=== PATIENT | male | born 1935 | race Caucasian/White ===

== ENCOUNTER → 2016-06-22 | Outpatient (CLI) | payer MEDICARE ==
[2016-06-22 08:47] LABS: Anisocytosis Slight; Basophils # (A) 0.1 k/uL (0-0.2); Basophils % (A) 1 %; CH 29.7; CHCM 31.1; Eosinophils # (A) 0.2 k/uL (0-0.7); Eosinophils % (A) 4 %; HDW 2.67; HGB 12.8 gm/dL (13.0-17.5); Hypochromasia Slight; Luc # (Auto) 0.21; Luc % (Auto) 3; Lymphocytes # (A) 1.4 k/uL (1.0-4.8); Lymphocytes % (A) 21 %; MCH 29.2 pg (25.0-35.0); MCHC 30.5 g/dL (31.0-37.0); MCV 95.8 fL (80.0-100.0); Mean Platelet Volume 7.3; Monocytes # (A) 0.4 k/uL (0-1.0); Monocytes % (A) 7 %; Neutrophils # (A) 4.4 k/uL (1.3-7.7); Neutrophils % (A) 65 %; RBC 4.38 m/uL (4.30-5.90); RDW 16.2 % (11.5-15.5); WBC 6.7 k/uL (3.8-10.6); WBC (Perox) 7.02
[2016-06-22 08:56] LABS: ALT 39 U/L (21-72); AST 23 U/L (17-59); Alkaline Phosphatase 95 U/L (38-126); Anion Gap 11 mmol/L; Blood Urea Nitrogen 29 mg/dL (9-20); Calcium 8.9 mg/dL (8.4-10.2); Carbon Dioxide 28 mmol/L (22-30); Chloride 106 mmol/L (98-107); Glucose 92 mg/dL (74-99); Non-African American GFR(MDRD) 54 (>60 ml/min/1.73 sqM); Sodium 145 mmol/L (137-145); Total Bilirubin 0.7 mg/dL (0.2-1.3); Total Protein 7.2 g/dL (6.3-8.2)
== END | disposition home or self-care (01) ==
LOC: LABWHC1 07:49
PROVIDERS: ATTEND Family Medicine
DX: G31.84 Mild cognitive impairment of uncertain or unknown etiology (principal); F41.1 Generalized anxiety disorder; R63.4 Abnormal weight loss
CPT/HCPCS: 36415; 80053; 84439; 84443; 85025

== ENCOUNTER → 2016-06-29 | Outpatient (CLI) | payer MEDICARE | END | disposition home or self-care (01) | LOC: LABWHC1 10:31 | PROVIDERS: ATTEND Family Medicine | DX: G31.84 Mild cognitive impairment of uncertain or unknown etiology (principal); R94.6 Abnormal results of thyroid function studies; Z51.81 Encounter for therapeutic drug level monitoring; Z79.01 Long term (current) use of anticoagulants | CPT/HCPCS: 36415; 84439; 84443; 84481; 86376; 86800 ==

== ENCOUNTER 2016-07-13 18:49 | Observation (INO) | payer MEDICARE ==
--- NOTE | 2016-07-13 19:20 | ED ---
Chest Pain HPI - General Chief Complaint: Chest Pain Stated Complaint: Chest Pain Time Seen by Provider: 07/13/16 19:17 Source: patient, RN notes reviewed Mode of arrival: wheelchair Limitations: no limitations - History of Present Illness Initial Comments: 's patient is an 81-year-old man who presents to be evaluated for chest pain. The patient states that he had been sitting and watching television this evening , when he had what he is describing as about 5 successive thumps in the left anterior chest. He then started shaking uncontrollably. The patient also was having some shortness of breath associated. They did phone EMS and were transported here. The patient states that the thumping/pain had resolved. He does continue to feel somewhat shaky. MD Complaint: chest pain Onset/Timin -: hour(s) Onset: during rest Pain Location: left chest Pain Radiation: none Severity: moderate Quality: other (Thumping) Consistency: now resolved Improves With: nothing Worsens With: nothing Anginal Symptoms: dyspnea Treatments Prior to Arrival: aspirin, oxygen - Related Data Home Medications Medication Instructions Recorded Confirmed Aspirin EC [Ecotrin Low Dose] 81 mg PO DAILY 01/27/14 07/13/16 Atorvastatin [Lipitor] 20 mg PO HS 01/27/14 07/13/16 Folic Acid 1 mg PO DAILY 01/27/14 07/13/16 Furosemide [Lasix] 20 mg PO DAILY 01/27/14 07/13/16 Warfarin [Coumadin] 2.5 mg PO SUMOTUTHSA 01/27/14 07/13/16 ALPRAZolam [Xanax] 0.5 mg PO QID PRN 08/18/14 07/13/16 Amiodarone [Cordarone] 100 mg PO DAILY 07/13/16 07/13/16 Ferocon Cap 1 cap PO DAILY 07/13/16 07/13/16 Warfarin [Coumadin] 5 mg PO WEFR 07/13/16 07/13/16 Allergies Allergy/AdvReac Type Severity Reaction Status Date / Time No Known Allergies Allergy Verified 07/13/16 19:34 Review of Systems ROS Statement: Those systems with pertinent positive or pertinent negative responses have been documented in the HPI. ROS Other: All systems not noted in ROS Statement are negative. Constitutional: Reports: chills. Denies: fever, weakness Respiratory: Reports: dyspnea. Denies: cough, wheezes, hemoptysis Cardiovascular: Reports: as per HPI, chest pain, palpitations. Denies: orthopnea, edema, syncope Gastrointestinal: Denies: abdominal pain, nausea, vomiting Genitourinary: Denies: dysuria, hematuria Musculoskeletal: Denies: back pain Skin: Denies: rash Neurological: Reports: weakness. Denies: headache Psychiatric: Reports: anxiety EKG Findings - EKG Results: EKG: interpreted by ERMD, sinus rhythm, normal axis, normal QRS, normal ST/T EKG shows: bradycardia (Rate 59 bpm) - Blocks, [place], Hypertrophy, ST Abn: AV and intraventricular conduction: 1 AV block Past Medical History Past Medical History: Atrial Fibrillation, Coronary Artery Disease (CAD), Cancer , CVA/TIA, Hyperlipidemia, Hypertension, Neurologic Disorder, Osteoarthritis (OA ), Prostate Disorder Additional Past Medical History / Comment(s): CAD status post [place], hypertension, A. fib, BPH, hyperlipidemia, vascular dementia, CVA, TIA, colon cancer, vitamin D deficiency, osteoarthritis. History of Any Multi-Drug Resistant Organisms: None Reported Past Surgical History: Adenoidectomy, Bowel Resection, Hernia Repair, Tonsillectomy Past Anesthesia/Blood Transfusion Reactions: No Reported Reaction Past Psychological History: Anxiety Smoking Status: Former smoker Past Alcohol Use History: None Reported Past Drug Use History: None Reported - Past Family History Father Family Medical History: Cancer, Myocardial Infarction ([place]) Additional Family Medical History / Comment(s): father in 60's Mother Family Medical History: No Reported History Brother(s) Family Medical History: Cancer Sister(s) Family Medical History: Cancer Daughter(s) Family Medical History: No Reported History Son(s) Family Medical History: No Reported History General Exam Limitations: no limitations General appearance: alert, anxious Head exam: Present: atraumatic, normocephalic Eye exam: Present: normal appearance. Absent: scleral icterus, conjunctival injection ENT exam: Present: normal oropharynx Neck exam: Present: normal inspection Respiratory exam: Present: normal lung sounds bilaterally. Absent: respiratory distress, wheezes, rales, rhonchi, stridor Cardiovascular Exam: Present: regular rate, normal rhythm, normal heart sounds. Absent: systolic murmur, diastolic murmur, rubs, gallop GI/Abdominal exam: Present: soft. Absent: tenderness, guarding, rebound, mass Extremities exam: Present: normal inspection, normal capillary refill. Absent: pedal edema, calf tenderness Back exam: Present: normal inspection. Absent: CVA tenderness (R), CVA tenderness (L) Neurological exam: Present: alert Psychiatric exam: Present: anxious Skin exam: Present: warm, dry, intact, normal color. Absent: rash Course Vital Signs 07/13/16 07/13/16 18:52 20:40 Temperature 98.8 F Pulse Rate 78 59 L Respiratory 20 20 Rate Blood Pressure 191/83 148/73 O2 Sat by Pulse 98 98 Oximetry Disposition Clinical Impression: Chest pain, Palpitations Disposition: ADMITTED IP TO THIS HOSP Condition: Fair
[2016-07-13 19:41] LABS: Anisocytosis Slight; Basophils % (A) 1 %; CH 30.5; CHCM 32.6; Eosinophils # (A) 0.2 k/uL (0-0.7); Eosinophils % (A) 4 %; HCT 36.7 % (39.0-53.0); HDW 2.71; Luc # (Auto) 0.19; Luc % (Auto) 3; Lymphocytes # (A) 1.2 k/uL (1.0-4.8); Lymphocytes % (A) 22 %; MCH 30.7 pg (25.0-35.0); MCHC 32.7 g/dL (31.0-37.0); Mean Platelet Volume 7.3; Monocytes # (A) 0.5 k/uL (0-1.0); Monocytes % (A) 9 %; Neutrophils # (A) 3.4 k/uL (1.3-7.7); Neutrophils % (A) 61 %; RDW 16.5 % (11.5-15.5); WBC 5.5 k/uL (3.8-10.6); WBC (Perox) 5.92
--- NOTE | 2016-07-13 19:47 | XR ---
EXAMINATION TYPE: XR chest 1V portable DATE OF EXAM: 07/13/2016 7:41 PM COMPARISON: 08/18/2014 HISTORY: Chest pain TECHNIQUE: Single frontal view of the chest is obtained. FINDINGS: There is no heart failure nor confluent pneumonic infiltrate. Thoracic aorta is atheromato us. There are no hilar masses. There are calcified pleural plaque on the left lateral chest wall. The re is no definite pleural effusion. There is slight blunting of right costophrenic angle. There are c hest leads. IMPRESSION: Mild pleural diaphragmatic scarring at the right lung base. No acute lung disease. No ch stacey compared to old exam.
[2016-07-13 19:55] LABS: Calcium 8.5 mg/dL (8.4-10.2); Potassium 4.7 mmol/L (3.5-5.1); Total Bilirubin 0.7 mg/dL (0.2-1.3); Total Protein 6.9 g/dL (6.3-8.2)
[2016-07-13 19:59] LABS: Creatine Kinase 85 U/L (55-170)
[2016-07-13 20:11] LABS: Partial Thromboplastin Time 31.8 sec (22.0-30.0); Prothrombin Time 19.1 sec (9.0-12.0)
[2016-07-13 20:12] LABS: Creatine Kinase MB 1.3 ng/mL (0.0-2.4); Troponin I <0.012 ng/mL (0.000-0.034)
[2016-07-13] MEDS ORDERED: ONDANSETRON 4 MG/2 ML VIAL IVP STA (21:13)
[2016-07-13] MEDS ORDERED: NITROGLYCERIN SL TABS 0.4 MG TAB SUBLINGUAL PRN (21:49)
[2016-07-13] MEDS ORDERED: ATORVASTATIN 20 MG TAB PO SCH (22:30)
[2016-07-13] MEDS: ALPRAZolam 0.5 MG TAB PO PRN (23:32)
[2016-07-14] MEDS: ALPRAZolam 0.5 MG TAB PO PRN ×2 (01:26→16:13)
[2016-07-14 02:49] LABS: Creatine Kinase 66 U/L (55-170)
[2016-07-14 03:03] LABS: Creatine Kinase MB 0.9 ng/mL (0.0-2.4); Troponin I <0.012 ng/mL (0.000-0.034)
[2016-07-14 07:53] LABS: Cholesterol 139 mg/dL (<200); HDL Cholesterol 68 mg/dL (40-60); Triglycerides 47 mg/dL (<150)
[2016-07-14 07:59] LABS: Creatine Kinase 58 U/L (55-170)
[2016-07-14 08:13] LABS: Creatine Kinase MB 0.8 ng/mL (0.0-2.4); Troponin I <0.012 ng/mL (0.000-0.034)
[2016-07-14] MEDS ORDERED: AMIODARONE 100 MG TAB PO SCH (09:00)
[2016-07-14] MEDS ORDERED: FUROSEMIDE 20 MG TAB PO SCH (09:00)
[2016-07-14] MEDS ORDERED: ASPIRIN 81 MG CHEW PO SCH (09:00)
[2016-07-14] MEDS ORDERED: ASPIRIN 325 MG TAB PO SCH (09:00)
[2016-07-14] MEDS ORDERED: FERROUS SULFATE 325 MG TAB PO SCH (12:00)
[2016-07-14] MEDS ORDERED: FOLIC ACID 1 MG TAB PO SCH (12:00)
--- NOTE | 2016-07-14 12:19 | ECHOF ---
Referral Reason:htn MEASUREMENTS -------- HEIGHT: 175.3 cm WEIGHT: 72.6 kg BP: 124/63 RVIDd: 3.1 cm (< 3.3) IVSd: 1.2 cm (0.6 - 1.1) LVIDd: 4.4 cm (3.9 - 5.3) LVPWd: 1.3 cm (0.6 - 1.1) IVSs: 1.6 cm LVIDs: 3.0 cm LVPWs: 1.5 cm LA Diam: 3.6 cm (2.7 - 3.8) LAESV Index (A-L): 22.87 ml/m Ao Diam: 4.0 cm (2.0 - 3.7) AV Cusp: 1.9 cm (1.5 - 2.6) MV EXCURSION: 16.312 mm (> 18.000) MV EF SLOPE: 96 mm/s (70 - 150) EPSS: 0.2 cm MV E Gaurav: 0.94 m/s MV DecT: 301 ms MV A Gaurav: 1.01 m/s MV E/A Ratio: 0.94 AV maxP.27 mmHg AV meanP.42 mmHg AR PHT: 931 ms RAP: 5.00 mmHg RVSP: 26.66 mmHg FINDINGS -------- Sinus rhythm. This was a technically good study. There is mild concentric left ventricular hypertrophy. Overall left ventricular systolic function is low-normal with, an EF between 50 - 55 %. Basal inferoseptal LV wall motion is hypokinetic. The right ventricle is normal in size. Normal LA size by volume 22+/-6 ml/m2. The right atrium is normal in size. Aortic valve is trileaflet and is mildly thickened. There is mild aortic regurgitation. Peak/mean gradient across the Aortic Valve is 13.27mmHg / 6.42mmHg. The mitral valve leaflets are mildly thickened. Mild mitral annular calcification present. Mild mitral regurgitation is present. Mild tricuspid regurgitation present. Right ventricular systolic pressure is normal at < 35 mmHg. Trace/mild (physiologic) pulmonic regurgitation. The aortic root is mildy dilated. The inferior vena cava is mildly dilated. The inferior vena cava is dilated with poor inspiratory collapse which is consistent with estimated right atrial pressure of 20 mmHg. There is no pericardial effusion. CONCLUSIONS -------- 1. Sinus rhythm. 2. There is mild aortic regurgitation. 3. Peak/mean gradient across the Aortic Valve is 13.27mmHg / 6.42mmHg. 4. The mitral valve leaflets are mildly thickened. 5. Mild mitral annular calcification present. 6. Mild mitral regurgitation is present. 7. Mild tricuspid regurgitation present. 8. Right ventricular systolic pressure is normal at < 35 mmHg. 9. Trace/mild (physiologic) pulmonic regurgitation. 10. The aortic root is mildy dilated. 11. The inferior vena cava is mildly dilated. 12. This was a technically good study. 13. The inferior vena cava is dilated with poor inspiratory collapse which is consistent with estimated right atrial pressure of 20 mmHg. 14. There is no pericardial effusion. 15. There is mild concentric left ventricular hypertrophy. 16. Overall left ventricular systolic function is low-normal with, an EF between 50 - 55 %. 17. Basal inferoseptal LV wall motion is hypokinetic. 18. The right ventricle is normal in size. 19. Normal LA size by volume 22+/-6 ml/m2. 20. The right atrium is normal in size. 21. Aortic valve is trileaflet and is mildly thickened. GENERAL MACHINE OPERATOR: Aliyah Babin RDCS
--- NOTE | 2016-07-14 12:49 | CONS ---
DATE OF CONSULTATION: Mr. Javier is a 81-year-old male with a history of arrhythmia who presented with shaking in the left arm. According to him, he was sitting when he started shaking in the left arm not associated with any other symptoms. He was quite uncomfortable with, took some ( ) without improvement and because of persistent symptoms came into the emergency room. He denies any chest discomfort. He denies any pressure in the chest. He denies any dizziness. No syncope. No PND. No orthopnea. He is average in exercise tolerance, has no exertional chest discomfort. He follows on a regular basis with Dr. Hector Haney. He had a prior history of paroxysmal atrial fibrillation and has been anticoagulated, but he is in sinus mechanism at the time of admission. His coronary risk factors are negative for smoking. He is hyperlipidemic, nondiabetic. His medications include Coumadin, aspirin, Lipitor 20 mg daily, folic acid, Lasix 20 mg daily, alprazolam and Cordarone 100 mg daily. Patient denies any prior history of obstructive coronary artery disease or congestive heart failure. REVIEW OF SYSTEMS: RESPIRATORY SYSTEM: He has mild dyspnea on exertion, but no recent wheezing or cough. GI SYSTEM: No recent GI bleeding. No peptic ulcer disease. SYSTEM: No dysuria or hematuria. NERVOUS SYSTEM: No stroke or seizure. PHYSICAL EXAMINATION: An 81-year-old male, alert, in no apparent distress. Blood pressure 148/80 with the heart rate in the 60s. HEAD: Normocephalic. EYES: Sclerae anicteric. NECK: Good upstroke. No bruit. No jugular venous distention. LUNGS: Clear to auscultation. HEART: Regular rate and rhythm. S1, S2, no S3 with systolic murmur, ejection type, heard at the base. No diastolic murmur. No rub. ABDOMEN: Soft, nontender, positive bowel sounds. No organomegaly. EXTREMITIES: No edema. Intact distal pulses. EKG reveals sinus mechanism, rate 59, first degree AV block with RSR prime LAB DATA: Troponin less than 0.012 for 2 samples. Cholesterol 139, LDL of 62. BUN and creatinine 25 1.84. INR of 2.0. Hemoglobin of 12. IMPRESSION: 1. Shakiness in the left arm, appears to be atypical for ischemic heart disease, probably noncardiac. 2. History of paroxysmal atrial fibrillation, remains in normal sinus rhythm. 3. Renal failure worse than before. 4. Hyperlipidemia. RECOMMENDATIONS: From the cardiac standpoint, I will obtain echocardiogram with Doppler. If there is no evidence of significant abnormality, then I believe he should be able to be discharged home and follow as an outpatient with Dr. Hector Haney. Thank you for this consult. We will follow with you.
--- NOTE | 2016-07-14 13:11 | P.HPIM ---
<Yeimi Cesar D - Last Filed: 07/14/16 12:26> History of Present Illness H&P Date: 07/14/16 Chief Complaint: Chest pain Patient is an 81-year-old male, patient of Dr. Keller in the outpatient setting, with medical history significant for coronary artery disease , myocardial infarction, hypertension, atrial fibrillation, BPH, hyperlipidemia , vascular dementia, CVA, osteoarthritis, colon cancer, vitamin D deficiency, and Tourette syndrome with tics. Patient presented to the emergency department with complaints of chest pain. Apparently patient was watching television when he experienced 5 successive thumps in his left anterior chest followed by uncontrollable shaking. Apparently patient did have some associated shortness of breath. Upon arrival to the emergency department, patient's chest pain had resolved. EKG in the emergency department with evidence of sinus bradycardia with first-degree block with no acute ST-T elevation or depression. Chest x- ray with no acute findings. Admission labs with evidence of anemia and acute renal failure. Troponins negative 3. Echocardiogram with overall preserved left ventricular systolic function with an EF between 50-55%; basal inferoseptal LV wall motion is hypokinetic. Patient was admitted to the observation unit and consult was requested for cardiology service. Upon examination, patient reports a congested cough 2 months. Patient denies recent illness, fevers, chills, nausea, vomiting, shortness of breath, chest pain, abdominal pain, urinary urgency, hesitancy, dysuria, hematuria, constipation or diarrhea. No history of melena or hematochezia. Patient denies numbness or tingling. No history of leg swelling. states that patient consumes a lot of Mountain Dew and doesn't drink a lot of water. Past Medical History Past Medical History: Atrial Fibrillation, Coronary Artery Disease (CAD), Cancer , CVA/TIA, Hyperlipidemia, Hypertension, Neurologic Disorder, Osteoarthritis (OA ), Prostate Disorder Additional Past Medical History / Comment(s): CAD status post [place], hypertension, A. fib, BPH, hyperlipidemia, vascular dementia, CVA, TIA, colon cancer, vitamin D deficiency, osteoarthritis. History of Any Multi-Drug Resistant Organisms: None Reported Past Surgical History: Adenoidectomy, Bowel Resection, Hernia Repair, Tonsillectomy Past Anesthesia/Blood Transfusion Reactions: No Reported Reaction Past Psychological History: Anxiety Smoking Status: Former smoker Past Alcohol Use History: None Reported Past Drug Use History: None Reported - Past Family History Father Family Medical History: Cancer, Myocardial Infarction ([place]) Additional Family Medical History / Comment(s): father in 60's Mother Family Medical History: No Reported History Brother(s) Family Medical History: Cancer Sister(s) Family Medical History: Cancer Daughter(s) Family Medical History: No Reported History Son(s) Family Medical History: No Reported History Medications and Allergies Home Medications Medication Instructions Recorded Confirmed Type Aspirin EC [Ecotrin Low Dose] 81 mg PO DAILY 01/27/14 07/13/16 History Atorvastatin [Lipitor] 20 mg PO HS 01/27/14 07/13/16 History Folic Acid 1 mg PO DAILY 01/27/14 07/13/16 History Furosemide [Lasix] 20 mg PO DAILY 01/27/14 07/13/16 History Warfarin [Coumadin] 2.5 mg PO SUMOTUTHSA 01/27/14 07/13/16 History ALPRAZolam [Xanax] 0.5 mg PO QID PRN 08/18/14 07/13/16 History Amiodarone [Cordarone] 100 mg PO DAILY 07/13/16 07/13/16 History Ferocon Cap 1 cap PO DAILY 07/13/16 07/13/16 History Warfarin [Coumadin] 5 mg PO WEFR 07/13/16 07/13/16 History Allergies Allergy/AdvReac Type Severity Reaction Status Date / Time No Known Allergies Allergy Verified 07/13/16 19:34 Physical Exam Vitals: Vital Signs Temp Pulse Pulse Pulse Resp BP BP 07/14/16 11:43 60 18 07/14/16 11:37 97.4 F L 60 18 149/70 07/14/16 08:00 97.9 F 56 L 18 124/63 07/14/16 04:00 97.8 F 62 16 148/83 07/14/16 00:24 20 07/14/16 00:00 98 F 65 16 197/73 07/13/16 23:18 97.4 F L 60 20 142/68 Pulse Ox 07/14/16 11:43 07/14/16 11:37 98 07/14/16 08:00 93 L 07/14/16 04:00 99 07/14/16 00:24 07/14/16 00:00 97 07/13/16 23:18 97 Intake and Output 07/13/16 07/14/16 07/14/16 22:59 06:59 14:59 Other: Voiding Method Toilet Toilet # Voids 2 1 GENERAL: Pt awake and alert, well-appearing, well-nourished, and in no acute distress. HEAD: Atraumatic, normocephalic. EYES: Pupils equal and round. Sclera anicteric, conjunctiva are normal. ENT: Moist mucous membranes. NECK:Supple without lymphadenopathy or JVD. No carotid bruits. Thyroid midline, small and firm without palpable masses. LUNGS: Breath sounds clear to auscultation bilaterally. No wheezes, rales, or rhonchi. HEART: Heart S1, S2, no S3 or S4. Regular rate and rhythm. Systolic murmur. ABDOMEN: Soft, nontender, nondistended, normoactive bowel sounds. No guarding, no rebound. No masses or organomegaly appreciated. EXTREMITIES: 2+ peripheral pulses. No edema. No calf tenderness. NEUROLOGICAL: Pt oriented x 3. Cranial nerves II through XII grossly intact. Strength and sensation grossly intact. PSYCH: Normal mood, normal affect. SKIN: Warm, dry, intact. Results CBC & Chem 7: 07/13/16 19:22 07/13/16 19:22 Labs: Abnormal Lab Results - Last 24 Hours (Table) 07/14/16 Range/Units 06:59 HDL Cholesterol 68 H (40-60) mg/dL Chest x-ray: report reviewed Thrombosis Risk Factor Assmnt - DVT/VTE Prophylaxis DVT/VTE Prophylaxis: Pharmacologic Prophylaxis ordered - Choose All That Apply Any of the Below Risk Factors Present?: No Other Risk Factors: Yes Each Risk Factor Represents 2 Points: Malignancy Each Risk Factor Represents 3 Points: Age 75 years or older Other congenital or acquired thrombophilia - If yes, enter type in comment: Yes Thrombosis Risk Factor Assessment Total Risk Factor Score: 5 Thrombosis Risk Factor Assessment Level: Very Low Risk Assessment and Plan Plan: Impression and plan: 1. Chest pain, present on admission, resolved. Cardiology consult in place, recommendations pending. 2. Coronary artery disease status post myocardial infarction. Continue aspirin. 3. Anemia suspect secondary to chronic disease and iron deficiency. Continue ferrous sulfate and folate acid. 4. Acute renal failure suspect secondary to dehydration and possible diuretics with history of chronic renal failure stage III. We'll hold Lasix. Encourage oral intake. Continue IV fluids. 5. History of paroxysmal atrial fibrillation, currently in sinus bradycardia with a history of sick sinus syndrome. Continue cardiac monitoring. Continue anticoagulation in the form of Coumadin. Continue amiodarone. 6. Hypertension. 7. Dyslipidemia. Continue Lipitor. 8. History of CVA. 9. Vascular dementia. 10. BPH. 11. Osteoarthritis. 12. Tourette's syndrome with tics, stable. 13. Anxiety, stable. Continue Xanax urine. 14. History of nicotine dependence. 15. DVT prophylaxis. Continue compression sleeves to bilateral lower extremities. Continue Coumadin. 16. Repeat BMP in a.m. The above impression and plan have been discussed and directed by Dr. Bahena. Yeimi DUNNE acting as scribe for Dr. Bahena. <Félix Bahena Jr - Last Filed: 07/14/16 18:31> Physical Exam Osteopathic Statement: *. No significant issues noted on an osteopathic structural exam other than those noted in the History and Physical/Consult. Vitals: Vital Signs Temp Pulse Pulse Pulse Pulse Resp BP 07/14/16 16:00 66 16 07/14/16 15:27 97.8 F 66 16 07/14/16 11:43 60 18 07/14/16 11:37 97.4 F L 60 18 07/14/16 08:00 97.9 F 56 L 18 07/14/16 04:00 97.8 F 62 16 07/14/16 00:24 20 07/14/16 00:00 98 F 65 16 07/13/16 23:18 97.4 F L 60 20 142/68 BP BP Pulse Ox 07/14/16 16:00 07/14/16 15:27 151/66 94 L 07/14/16 11:43 07/14/16 11:37 149/70 98 07/14/16 08:00 124/63 93 L 07/14/16 04:00 148/83 99 07/14/16 00:24 07/14/16 00:00 197/73 97 07/13/16 23:18 97 Intake and Output 07/14/16 07/14/16 07/14/16 06:59 14:59 22:59 Intake Total 200 600 Balance 200 600 Intake: Oral 200 600 Other: Voiding Method Toilet Toilet Toilet # Voids 2 1 1 Results CBC & Chem 7: 07/13/16 19:22 07/13/16 19:22 Labs: Abnormal Lab Results - Last 24 Hours (Table) 07/14/16 Range/Units 06:59 HDL Cholesterol 68 H (40-60) mg/dL
[2016-07-14] MEDS ORDERED: SODIUM CHLORIDE 0.9% 1,000 ML IV SCH (13:15)
[2016-07-14 15:28] VITALS: BP 151/66; PULSE 66; RESP 16; TEMP 97.8
[2016-07-14] MEDS ORDERED: WARFARIN 2.5 MG TAB PO SCH (18:00)
--- NOTE | 2016-07-14 18:09 | P.DS ---
Providers Date of admission: 07/13/16 21:49 Expected date of discharge: 07/14/16 Attending physician: Félix Bahena Primary care physician: Duc Keller Hospital Course: General: [Patient awake, alert and oriented times 3. Patient in no acute distress.] HEENT: [PERRL. EOMI. No pharyngeal erythema or exudate.] Neck: [No adenopathy.] Cardiac: [Heart regular in rate and rhythm. No S3. No S4. No clicks, rubs. No murmur.] Lungs: [Clear to auscultation bilaterally.] Abdomen: [No mass. No organomegaly. Bowel sounds presnt and normoactive in all 4 quadrants.] Extremes: [No edema no cyanosis no claudication normal pulses] : [] Musculoskeletal: [No joint erythema, edema or tenderness.] Skin: [No rash.] Neurologic: [No lateralizing deficits. CN II - XII grossly intact.] Lymphatic: [No adenopathy.] Troponins 3 are negative Patient Condition at Discharge: Fair Plan - Discharge Summary Discharge Medication List Aspirin EC [Ecotrin Low Dose] 81 mg PO DAILY 01/27/14 [History] Atorvastatin [Lipitor] 20 mg PO HS 01/27/14 [History] Folic Acid 1 mg PO DAILY 01/27/14 [History] Furosemide [Lasix] 20 mg PO DAILY 01/27/14 [History] Warfarin [Coumadin] 2.5 mg PO SUMOTUTHSA 01/27/14 [History] ALPRAZolam [Xanax] 0.5 mg PO QID PRN 08/18/14 [History] Amiodarone [Cordarone] 100 mg PO DAILY 07/13/16 [History] Ferocon Cap 1 cap PO DAILY 07/13/16 [History] Warfarin [Coumadin] 5 mg PO WEFR 07/13/16 [History] Follow up Appointment(s)/Referral(s): Duc Keller MD [Primary Care Provider] - 1-2 days (Per patient does have appointment with Dr. Keller on 08/05) Pending Studies Pending Results: None
[2016-07-15] MEDS ORDERED: WARFARIN 5 MG TAB PO SCH (18:00)
== END 2016-07-14 18:25 | disposition home or self-care (01) ==
LOC: EC 18:49 → 3OBS 21:49
PROVIDERS: ADMIT Family Medicine; ATTEND Family Medicine
DX: R07.9 Chest pain, unspecified (principal); I25.10 Atherosclerotic heart disease of native coronary artery without angina pectoris; I25.2 Old myocardial infarction; I48.0 Paroxysmal atrial fibrillation; D64.9 Anemia, unspecified; I12.9 Hypertensive chronic kidney disease with stage 1 through stage 4 chronic kidney disease, or unspecified chronic kidney disease; N18.3 Chronic kidney disease, stage 3 (moderate); N17.9 Acute kidney failure, unspecified; I49.5 Sick sinus syndrome; F01.50 Vascular dementia, unspecified severity, without behavioral disturbance, psychotic disturbance, mood disturbance, and anxiety; N40.0 Benign prostatic hyperplasia without lower urinary tract symptoms; E78.5 Hyperlipidemia, unspecified; M19.90 Unspecified osteoarthritis, unspecified site; F41.9 Anxiety disorder, unspecified; F95.2 Tourette's disorder; Z79.82 Long term (current) use of aspirin; Z79.899 Other long term (current) drug therapy; Z79.01 Long term (current) use of anticoagulants; Z87.891 Personal history of nicotine dependence; Z82.49 Family history of ischemic heart disease and other diseases of the circulatory system; Z86.73 Personal history of transient ischemic attack (TIA), and cerebral infarction without residual deficits; Z85.038 Personal history of other malignant neoplasm of large intestine
CPT/HCPCS: 36415; 93005; 93306; 85379; 80061; 80053; 82550 ×2; 82553 ×2; 83735; 84484 ×2; 85025; 85610; 85730; 71010; 99285; G0378 ×2

== ENCOUNTER 2017-06-28 10:25 | Emergency (ER) | payer MEDICARE ==
--- NOTE | 2017-06-28 11:59 | ED ---
General Adult HPI - General Chief complaint: Fall Stated complaint: Fall Time Seen by Provider: 06/28/17 11:30 Source: patient, RN notes reviewed Mode of arrival: wheelchair Limitations: no limitations - History of Present Illness Initial comments: Patient 82-year-old male who presents emergency room today with a chief complaint of fall that occurred 3 days ago. Patient does admit that he was outside fishing snowblower slipped on the ice falling down. He states that he kept his arm on the snowblower and believes that he pulled some muscles in the right side of the chest wall. States did not hurt at the time but noticed that later at night he began having some discomfort in right side of the chest wall. He states worse with certain movements. Particularly patient gives an example of when he goes to get up or was some twisting-type motions. Patient does admit that symptoms be worse during the morning and at night. Patient does not that is used Tylenol with some relief of symptoms. Patient denies any head injury or loss conscious. Doesn't that is worse with coughing. Patient denies any other complaints or symptoms. Patient denies any recent fever, chills , shortness of breath, chest pain, back pain, abdominal pain, nausea or vomiting , numbness or tingling, dysuria or hematuria, constipation or diarrhea, headaches or visual changes, or any other complaints. - Related Data Home Medications Medication Instructions Recorded Confirmed Atorvastatin [Lipitor] 20 mg PO HS 01/27/14 06/28/17 Folic Acid 1 mg PO DAILY 01/27/14 06/28/17 Furosemide [Lasix] 20 mg PO DAILY 01/27/14 06/28/17 Warfarin [Coumadin] 2.5 mg PO SUTUTHSA@1645 01/27/14 06/28/17 Amiodarone [Cordarone] 100 mg PO DAILY 07/13/16 06/28/17 Ferocon Cap 1 cap PO DAILY 07/13/16 06/28/17 Warfarin [Coumadin] 3.5 mg PO MOWEFR@1645 07/13/16 06/28/17 Levothyroxine Sodium [Synthroid] 50 mcg PO DAILY 06/28/17 06/28/17 Allergies Allergy/AdvReac Type Severity Reaction Status Date / Time No Known Allergies Allergy Verified 06/28/17 11:48 Review of Systems ROS Statement: Those systems with pertinent positive or pertinent negative responses have been documented in the HPI. ROS Other: All systems not noted in ROS Statement are negative. Past Medical History Past Medical History: Atrial Fibrillation, Coronary Artery Disease (CAD), Cancer , CVA/TIA, Hyperlipidemia, Hypertension, Neurologic Disorder, Osteoarthritis (OA ), Prostate Disorder Additional Past Medical History / Comment(s): CAD status post [place], hypertension, A. fib, BPH, hyperlipidemia, vascular dementia, CVA, TIA, colon cancer, vitamin D deficiency, osteoarthritis. History of Any Multi-Drug Resistant Organisms: None Reported Past Surgical History: Adenoidectomy, Bowel Resection, Hernia Repair, Tonsillectomy Past Anesthesia/Blood Transfusion Reactions: No Reported Reaction Past Psychological History: Anxiety Smoking Status: Former smoker Past Alcohol Use History: None Reported Past Drug Use History: None Reported - Past Family History Father Family Medical History: Cancer, Myocardial Infarction ([place]) Additional Family Medical History / Comment(s): father in 60's Mother Family Medical History: No Reported History Brother(s) Family Medical History: Cancer Sister(s) Family Medical History: Cancer Daughter(s) Family Medical History: No Reported History Son(s) Family Medical History: No Reported History General Exam - General Exam Comments Initial Comments: General: The patient is awake and alert, in no distress, and does not appear acutely ill. Eye: Pupils are equal, round and reactive to light, extra-ocular movements are intact. No nystagmus. There is normal conjunctiva bilaterally. No signs of icterus. Ears, nose, mouth and throat: There are moist mucous membranes and no oral lesions. Neck: The neck is supple, there is no tenderness or JVD. Cardiovascular: There is a regular rate and rhythm. No murmur, rub or gallop is appreciated. Respiratory: Lungs are clear to auscultation, respirations are non-labored, breath sounds are equal. No wheezes, stridor, rales, or rhonchi. Gastrointestinal: Soft, non-distended, non-tender abdomen without masses or organomegaly noted. There is no rebound or guarding present. No CVA tenderness. Bowel sounds are unremarkable. Musculoskeletal: Normal ROM, no tenderness. No bruising or swelling to the right side of the chest wall. Strength 5/5. Sensation intact. Pulses equal bilaterally 2+. Neurological: A&O x 3. CN II-XII intact, There are no obvious motor or sensory deficits. Coordination appears grossly intact. Speech is normal. Skin: Skin is warm and dry and no rashes or lesions are noted. Psychiatric: Cooperative, appropriate mood & affect, normal judgment. Limitations: no limitations Course Vital Signs 06/28/17 10:37 Temperature 98.1 F Pulse Rate 77 Respiratory 20 Rate Blood Pressure 179/77 O2 Sat by Pulse 98 Oximetry EKG Findings - EKG Comments: EKG Findings:: EKG performed at 1229: Shows sinus bradycardia first-degree AV block at 54 bpm. CA interval 260. QRS 84. QT/QTc 460/436. No acute ST changes. Medical Decision Making - Medical Decision Making Patient reexamined at this time shows no signs of distress. He does admit that is feeling better. He states been using Tylenol off-and-on does not use it every day. He does describe pain it's worse with certain movements. Does appear to be possible skeletal after a fall that occurred 3 days ago. Patient labs been reviewed are unremarkable. His cardiac enzymes negative. He has no chest pain at rest. This pain is only with certain movements. Patient EKG showing no acute changes. X-rays reviewed and are negative for any acute abnormality. Results were discussed with the patient admits that he feels couple pain discharged home patient advised to continue Tylenol as needed for pain and return here to the emergency room if any symptoms increase worsen. - Lab Data Result diagrams: 06/28/17 11:55 06/28/17 11:55 Lab Results 06/28/17 06/28/17 06/28/17 Range/Units 11:55 11:55 11:55 WBC 6.4 (3.8-10.6) k/uL RBC 4.43 (4.30-5.90) m/uL Hgb 13.3 (13.0-17.5) gm/dL Hct 41.7 (39.0-53.0) % MCV 94.0 (80.0-100.0) fL MCH 30.0 (25.0-35.0) pg MCHC 31.9 (31.0-37.0) g/dL RDW 15.4 (11.5-15.5) % Plt Count 187 (150-450) k/uL Neutrophils % 81 % Lymphocytes % 11 % Monocytes % 4 % Eosinophils % 2 % Basophils % 1 % Neutrophils # 5.2 (1.3-7.7) k/uL Lymphocytes # 0.7 L (1.0-4.8) k/uL Monocytes # 0.3 (0-1.0) k/uL Eosinophils # 0.2 (0-0.7) k/uL Basophils # 0.0 (0-0.2) k/uL PT 25.7 H (9.0-12.0) sec INR 2.9 H (<1.2) APTT 35.8 H (22.0-30.0) sec Sodium 141 (137-145) mmol/L Potassium 4.7 (3.5-5.1) mmol/L Chloride 103 (98-107) mmol/L Carbon Dioxide 27 (22-30) mmol/L Anion Gap 11 mmol/L BUN 24 H (9-20) mg/dL Creatinine 1.31 H (0.66-1.25) mg/dL Est GFR (MDRD) Af Amer >60 (>60 ml/min/1.73 sqM) Est GFR (MDRD) Non-Af 52 (>60 ml/min/1.73 sqM) Glucose 104 H (74-99) mg/dL Calcium 9.2 (8.4-10.2) mg/dL Total Bilirubin 0.8 (0.2-1.3) mg/dL AST 20 (17-59) U/L ALT 23 (21-72) U/L Alkaline Phosphatase 110 (38-126) U/L Troponin I (0.000-0.034) ng/mL Total Protein 7.3 (6.3-8.2) g/dL Albumin 4.4 (3.5-5.0) g/dL 06/28/17 Range/Units 11:55 WBC (3.8-10.6) k/uL RBC (4.30-5.90) m/uL Hgb (13.0-17.5) gm/dL Hct (39.0-53.0) % MCV (80.0-100.0) fL MCH (25.0-35.0) pg MCHC (31.0-37.0) g/dL RDW (11.5-15.5) % Plt Count (150-450) k/uL Neutrophils % % Lymphocytes % % Monocytes % % Eosinophils % % Basophils % % Neutrophils # (1.3-7.7) k/uL Lymphocytes # (1.0-4.8) k/uL Monocytes # (0-1.0) k/uL Eosinophils # (0-0.7) k/uL Basophils # (0-0.2) k/uL PT (9.0-12.0) sec INR (<1.2) APTT (22.0-30.0) sec Sodium (137-145) mmol/L Potassium (3.5-5.1) mmol/L Chloride (98-107) mmol/L Carbon Dioxide (22-30) mmol/L Anion Gap mmol/L BUN (9-20) mg/dL Creatinine (0.66-1.25) mg/dL Est GFR (MDRD) Af Amer (>60 ml/min/1.73 sqM) Est GFR (MDRD) Non-Af (>60 ml/min/1.73 sqM) Glucose (74-99) mg/dL Calcium (8.4-10.2) mg/dL Total Bilirubin (0.2-1.3) mg/dL AST (17-59) U/L ALT (21-72) U/L Alkaline Phosphatase (38-126) U/L Troponin I <0.012 (0.000-0.034) ng/mL Total Protein (6.3-8.2) g/dL Albumin (3.5-5.0) g/dL Disposition Clinical Impression: Chest wall muscle strain Disposition: HOME SELF-CARE Condition: Good Instructions: Muscle Strain (ED) Additional Instructions: Please use Tylenol for pain as needed. Please follow-up with family doctor in the next 2-5 days of symptoms have not improved. Please return to emergency room if the symptoms increase or worsen or for any other concerns. Referrals: Duc Keller MD [Primary Care Provider] - 1-2 days Time of Disposition: 13:07
[2017-06-28 12:09] LABS: Basophils % (A) 1 %; Eosinophils # (A) 0.2 k/uL (0-0.7); Eosinophils % (A) 2 %; HCT 41.7 % (39.0-53.0); HGB 13.3 gm/dL (13.0-17.5); Lymphocytes # (A) 0.7 k/uL (1.0-4.8); Lymphocytes % (A) 11 %; MCHC 31.9 g/dL (31.0-37.0); Mean Platelet Volume 7.4; Monocytes # (A) 0.3 k/uL (0-1.0); Monocytes % (A) 4 %; Neutrophils # (A) 5.2 k/uL (1.3-7.7); Neutrophils % (A) 81 %; Platelet Count 187 k/uL (150-450); RBC 4.43 m/uL (4.30-5.90); RDW 15.4 % (11.5-15.5); WBC 6.4 k/uL (3.8-10.6)
[2017-06-28 12:21] LABS: INR 2.9 (<1.2); Partial Thromboplastin Time 35.8 sec (22.0-30.0); Prothrombin Time 25.7 sec (9.0-12.0)
[2017-06-28 12:22] LABS: ALT 23 U/L (21-72); AST 20 U/L (17-59); Albumin 4.4 g/dL (3.5-5.0); Alkaline Phosphatase 110 U/L (38-126); Anion Gap 11 mmol/L; Blood Urea Nitrogen 24 mg/dL (9-20); Calcium 9.2 mg/dL (8.4-10.2); Carbon Dioxide 27 mmol/L (22-30); Chloride 103 mmol/L (98-107); Glucose 104 mg/dL (74-99); Potassium 4.7 mmol/L (3.5-5.1); Sodium 141 mmol/L (137-145); Total Bilirubin 0.8 mg/dL (0.2-1.3); Total Protein 7.3 g/dL (6.3-8.2)
--- NOTE | 2017-06-28 12:23 | XR ---
EXAMINATION TYPE: XR chest 2V, XR ribs RT DATE OF EXAM: 06/28/2017 COMPARISON: CT chest abdomen and pelvis April 21, 2016. Chest x-ray July 13, 2016 HISTORY: Chest and right-sided rib pain after fall injury. TECHNIQUE: Frontal and lateral views of the chest are obtained. A frontal and oblique images of the right-sided ribs are acquired. FINDINGS: There is chronic parenchymal change with chronic blunting of right lateral costophrenic an gle in new blunting left costophrenic angle consistent with small bilateral pleural effusions and/or pleural thickening. There is new right suprahilar linear atelectasis. There is background mild underl brenda emphysematous change with lateral midlung left calcified plaques and scarring and right basilar lateral linear scarring. There is no new suspicious focal airspace opacity or pneumothorax seen bilat erally The cardiac silhouette size is stable and mildly enlarged. The osseous structures are intact . Dedicated images of the right sided ribs show demineralization which is noted to lower radiographic s ensitivity. No acute displaced rib fracture is clearly seen. Overlying soft tissue is unremarkable. IMPRESSION: 1. Chronic emphysematous changes with scattered fibrosis and cardiomegaly and new right suprahilar ho rizontal linear atelectasis. 2. No acute displaced right-sided rib fractures are seen.
[2017-06-28 13:20] VITALS: PULSE 70; RESP 16; TEMP 98.2
[2017-06-28 13:31] VITALS: BP 172/84
== END 2017-06-28 13:36 | disposition home or self-care (01) ==
LOC: EC 10:25
DX: S29.011A Strain of muscle and tendon of front wall of thorax, initial encounter (principal); I48.91 Unspecified atrial fibrillation; I25.10 Atherosclerotic heart disease of native coronary artery without angina pectoris; E78.5 Hyperlipidemia, unspecified; I10 Essential (primary) hypertension; Z86.73 Personal history of transient ischemic attack (TIA), and cerebral infarction without residual deficits; Z85.038 Personal history of other malignant neoplasm of large intestine; Z87.891 Personal history of nicotine dependence; Z79.01 Long term (current) use of anticoagulants; Z79.899 Other long term (current) drug therapy; W00.0XXA Fall on same level due to ice and snow, initial encounter; Y93.89 Activity, other specified
CPT/HCPCS: 36415; 71046; 80053; 84484; 85025; 85610; 85730; 93005; 99283

== ENCOUNTER 2018-09-25 09:18 | Emergency (ER) | payer MEDICARE ==
[2018-09-25] MEDS ORDERED: MECLIZINE 25 MG TAB PO STA (09:39)
[2018-09-25] MEDS ORDERED: DIAZEPAM 5 MG/ML 2 ML INJ IVP STA (09:39)
[2018-09-25] MEDS ORDERED: ONDANSETRON 4 MG/2 ML VIAL IVP STA (09:41)
--- NOTE | 2018-09-25 09:41 | ED ---
General Adult HPI - General Chief complaint: Shortness of Breath Stated complaint: shaky jerome Time Seen by Provider: 09/25/18 09:20 Source: family, RN notes reviewed Mode of arrival: wheelchair Limitations: no limitations - History of Present Illness Initial comments: This is an 83-year-old male who presents emergency Department complaining of dizziness. Patient states occurred when he woke up this morning. Patient states she has had similar symptoms in the past but he doesn't know what the cause was. Patient states is also nauseated with the dizziness. Patient states movement such as sitting up or walking make it worse. states the patient was very off balance when he was walking. Look like he was given a tip over. Patient also complains of some shortness of breath but he states is not that bad. Patient denies any chest pain or palpitations. Patient states she's been shaking ever since this dizziness occurred and again the states this happened in the morning in the past but usually resolves on its own. Patient denies any headache patient denies any numbness weakness. Patient denies any abdominal pain patient denies nausea vomiting diarrhea. - Related Data Home Medications Medication Instructions Recorded Confirmed Atorvastatin [Lipitor] 20 mg PO HS 01/27/14 09/25/18 Folic Acid 1 mg PO DAILY 01/27/14 09/25/18 Furosemide [Lasix] 20 mg PO DAILY 01/27/14 09/25/18 Warfarin [Coumadin] 2.5 mg PO SUTUTHSA@1700 01/27/14 09/25/18 Amiodarone [Cordarone] 100 mg PO DAILY 07/13/16 09/25/18 Ferocon Cap 1 cap PO DAILY 07/13/16 09/25/18 Warfarin [Coumadin] 3.75 mg PO MOWEFR@1700 07/13/16 09/25/18 Levothyroxine Sodium [Synthroid] 50 mcg PO DAILY 06/28/17 09/25/18 LORazepam [Ativan] 0.5 mg PO TID PRN 09/25/18 09/25/18 Previous Rx's Medication Instructions Recorded Meclizine [Antivert] 25 mg PO TID #20 tab 09/25/18 Allergies Allergy/AdvReac Type Severity Reaction Status Date / Time No Known Allergies Allergy Verified 09/25/18 10:24 Review of Systems ROS Statement: Those systems with pertinent positive or pertinent negative responses have been documented in the HPI. ROS Other: All systems not noted in ROS Statement are negative. Past Medical History Past Medical History: Atrial Fibrillation, Coronary Artery Disease (CAD), Cancer, CVA/TIA, Hyperlipidemia, Hypertension, Neurologic Disorder, Osteoarthritis (OA), Prostate Disorder Additional Past Medical History / Comment(s): CAD status post [place], hypertension, A. fib, BPH, hyperlipidemia, vascular dementia, CVA, TIA, colon cancer, vitamin D deficiency, osteoarthritis. History of Any Multi-Drug Resistant Organisms: None Reported Past Surgical History: Adenoidectomy, Bowel Resection, Hernia Repair, Tonsillectomy Past Anesthesia/Blood Transfusion Reactions: No Reported Reaction Past Psychological History: Anxiety Smoking Status: Former smoker Past Alcohol Use History: None Reported Past Drug Use History: None Reported - Past Family History Father Family Medical History: Cancer, Myocardial Infarction ([place]) Additional Family Medical History / Comment(s): father in 60's Mother Family Medical History: No Reported History Brother(s) Family Medical History: Cancer Sister(s) Family Medical History: Cancer Daughter(s) Family Medical History: No Reported History Son(s) Family Medical History: No Reported History General Exam - General Exam Comments Initial Comments: GENERAL: Patient is well-developed and well-nourished. Patient is nontoxic and well- hydrated and is in mild distress. ENT: Neck is soft and supple. No significant lymphadenopathy is noted. Oropharynx is clear. Moist mucous membranes. Neck has full range of motion without eliciting any pain. EYES: The sclera were anicteric and conjunctiva were pink and moist. Extraocular movements were intact and pupils were equal round and reactive to light. E yelids were unremarkable. PULMONARY: Unlabored respirations. Good breath sounds bilaterally. No audible rales rhonchi or wheezing was noted. CARDIOVASCULAR: There is a regular rate and rhythm without any murmurs gallops or rubs. ABDOMEN: Soft and nontender with normal bowel sounds. No palpable organomegaly was noted. There is no palpable pulsatile mass. SKIN: Skin is clear with no lesions or rashes and otherwise unremarkable. NEUROLOGIC: Patient is alert and oriented x3. Cranial nerves II through XII are grossly intact. Motor and sensory are also intact. Normal speech, volume and content. Symmetrical smile. Cerebellar exam grossly intact. MUSCULOSKELETAL: Normal extremities with adequate strength and full range of motion. No lower extremity swelling or edema. No calf tenderness. LYMPHATICS: No significant lymphadenopathy is noted PSYCHIATRIC: Normal psychiatric evaluation. Limitations: no limitations Course Vital Signs 09/25/18 09/25/18 09/25/18 09:20 10:00 10:30 Temperature 98.0 F Pulse Rate 53 L 49 L 55 L Respiratory 20 17 22 Rate Blood Pressure 180/84 157/77 151/71 O2 Sat by Pulse 99 99 98 Oximetry 09/25/18 09/25/18 09/25/18 10:58 11:00 11:30 Temperature Pulse Rate 53 L 54 L 73 Respiratory 18 21 18 Rate Blood Pressure 140/81 140/81 141/77 O2 Sat by Pulse 100 99 100 Oximetry Medical Decision Making - Medical Decision Making EKG shows sinus bradycardia 50 bpm GA interval is 272 QRS is 92 QT interval is 502 QTC is 457. Patient's EKG shows no ST segment elevation or depression. Chest x-ray showed an increasing area of possible plaque in the left lung which seems slightly bigger than last x-ray. Patient had a CT of the brain showed no acute abnormality. Patient received Valium and Antivert in the emergency department. Patient was able to ablate with no dizziness at this time. - Lab Data Result diagrams: 09/25/18 10:17 09/25/18 10:17 Lab Results 09/25/18 09/25/18 09/25/18 Range/Units 10:17 10:17 10:17 WBC 6.1 (3.8-10.6) k/uL RBC 4.24 L (4.30-5.90) m/uL Hgb 12.8 L (13.0-17.5) gm/dL Hct 39.4 (39.0-53.0) % MCV 92.9 (80.0-100.0) fL MCH 30.1 (25.0-35.0) pg MCHC 32.4 (31.0-37.0) g/dL RDW 15.8 H (11.5-15.5) % Plt Count 199 (150-450) k/uL Neutrophils % 75 % Lymphocytes % 13 % Monocytes % 6 % Eosinophils % 3 % Basophils % 1 % Neutrophils # 4.6 (1.3-7.7) k/uL Lymphocytes # 0.8 L (1.0-4.8) k/uL Monocytes # 0.4 (0-1.0) k/uL Eosinophils # 0.2 (0-0.7) k/uL Basophils # 0.0 (0-0.2) k/uL PT 27.5 H (9.0-12.0) sec INR 2.8 H (<1.2) APTT 38.8 H (22.0-30.0) sec Sodium 140 (137-145) mmol/L Potassium 4.8 (3.5-5.1) mmol/L Chloride 108 H (98-107) mmol/L Carbon Dioxide 28 (22-30) mmol/L Anion Gap 4 mmol/L BUN 21 H (9-20) mg/dL Creatinine 1.14 (0.66-1.25) mg/dL Est GFR (CKD-EPI)AfAm 69 (>60 ml/min/1.73 sqM) Est GFR (CKD-EPI)NonAf 60 (>60 ml/min/1.73 sqM) Glucose 87 (74-99) mg/dL Calcium 9.0 (8.4-10.2) mg/dL Magnesium 2.0 (1.6-2.3) mg/dL Total Bilirubin 0.7 (0.2-1.3) mg/dL AST 16 L (17-59) U/L ALT 18 L (21-72) U/L Alkaline Phosphatase 85 (38-126) U/L Troponin I (0.000-0.034) ng/mL Total Protein 6.5 (6.3-8.2) g/dL Albumin 4.0 (3.5-5.0) g/dL /10/09 Range/Units 10:17 WBC (3.8-10.6) k/uL RBC (4.30-5.90) m/uL Hgb (13.0-17.5) gm/dL Hct (39.0-53.0) % MCV (80.0-100.0) fL MCH (25.0-35.0) pg MCHC (31.0-37.0) g/dL RDW (11.5-15.5) % Plt Count (150-450) k/uL Neutrophils % % Lymphocytes % % Monocytes % % Eosinophils % % Basophils % % Neutrophils # (1.3-7.7) k/uL Lymphocytes # (1.0-4.8) k/uL Monocytes # (0-1.0) k/uL Eosinophils # (0-0.7) k/uL Basophils # (0-0.2) k/uL PT (9.0-12.0) sec INR (<1.2) APTT (22.0-30.0) sec Sodium (137-145) mmol/L Potassium (3.5-5.1) mmol/L Chloride (98-107) mmol/L Carbon Dioxide (22-30) mmol/L Anion Gap mmol/L BUN (9-20) mg/dL Creatinine (0.66-1.25) mg/dL Est GFR (CKD-EPI)AfAm (>60 ml/min/1.73 sqM) Est GFR (CKD-EPI)NonAf (>60 ml/min/1.73 sqM) Glucose (74-99) mg/dL Calcium (8.4-10.2) mg/dL Magnesium (1.6-2.3) mg/dL Total Bilirubin (0.2-1.3) mg/dL AST (17-59) U/L ALT (21-72) U/L Alkaline Phosphatase (38-126) U/L Troponin I <0.012 (0.000-0.034) ng/mL Total Protein (6.3-8.2) g/dL Albumin (3.5-5.0) g/dL Disposition Clinical Impression: Vertigo Disposition: HOME SELF-CARE Instructions (If sedation given, give patient instructions): Vertigo (ED) Prescriptions: Meclizine [Antivert] 25 mg PO TID #20 tab Is patient prescribed a controlled substance at d/c from ED?: No Referrals: Duc Keller MD [Primary Care Provider] - 1-2 days Time of Disposition: 12:17
[2018-09-25 10:40] LABS: Basophils % (A) 1 %; Eosinophils # (A) 0.2 k/uL (0-0.7); Eosinophils % (A) 3 %; HCT 39.4 % (39.0-53.0); HGB 12.8 gm/dL (13.0-17.5); Lymphocytes # (A) 0.8 k/uL (1.0-4.8); Lymphocytes % (A) 13 %; MCH 30.1 pg (25.0-35.0); MCHC 32.4 g/dL (31.0-37.0); MCV 92.9 fL (80.0-100.0); Mean Platelet Volume 7.8; Monocytes # (A) 0.4 k/uL (0-1.0); Monocytes % (A) 6 %; Neutrophils # (A) 4.6 k/uL (1.3-7.7); Neutrophils % (A) 75 %; Platelet Count 199 k/uL (150-450); RBC 4.24 m/uL (4.30-5.90); RDW 15.8 % (11.5-15.5); WBC 6.1 k/uL (3.8-10.6)
[2018-09-25 10:47] LABS: Potassium 4.8 mmol/L (3.5-5.1); Total Bilirubin 0.7 mg/dL (0.2-1.3); Total Protein 6.5 g/dL (6.3-8.2)
[2018-09-25 10:57] LABS: INR 2.8 (<1.2); Partial Thromboplastin Time 38.8 sec (22.0-30.0); Prothrombin Time 27.5 sec (9.0-12.0)
[2018-09-25 11:02] VITALS: RESP 18
--- NOTE | 2018-09-25 11:11 | CT ---
EXAMINATION TYPE: CT brain wo con DATE OF EXAM: 09/25/2018 COMPARISON: Previous study dated 12/30/2009. HISTORY: slurred speech, tremors CT DLP: 1066.4 mGycm Automated exposure control for dose reduction was used. FINDINGS: There are generalized changes of sulcal prominence and ventriculomegaly, compatible with atrophic edgard nge. There is diffuse periventricular white matter lucency, compatible with small vessel ischemic edgard nge. There is no acute focal lesion, mass effect or midline shift identified. I do not see evidence o f intracranial blood. There is mild mucosal thickening involving the left sphenoid sinus. The remainder the paranasal sinus es and mastoids are clear. The bony calvarium is intact. IMPRESSION: 1. NO ACUTE INTRACRANIAL ABNORMALITY. 2. MILD ATROPHIC CHANGE. 3. CHRONIC WHITE MATTER ISCHEMIC CHANGE. 4. CHRONIC SINUS MUCOSAL DISEASE INVOLVING THE LEFT SPHENOID SINUS.
--- NOTE | 2018-09-25 11:15 | XR ---
EXAMINATION TYPE: XR chest 2V DATE OF EXAM: 09/25/2018 HISTORY: Chest Pain. REFERENCE: Previous study dated 06/28/2017. FINDINGS: The lungs are overinflated. The heart is enlarged. There is chronic blunting of both CP ang les. There is some increased pleural-based density on the left which is more prominent than previous. Lungs otherwise clear. IMPRESSION: 1. COPD. 2. LEFT-SIDED PLEURAL-BASED OPACITY IS MORE PROMINENT THAN ON THE PREVIOUS STUDY. A CT SCAN OF THE EST MAY BE WORTHWHILE.
[2018-09-25 13:02] VITALS: BP 145/73; PULSE 55; TEMP 97.3
== END 2018-09-25 12:50 | disposition home or self-care (01) ==
LOC: EC 09:18
DX: R42 Dizziness and giddiness (principal); R00.1 Bradycardia, unspecified; I48.91 Unspecified atrial fibrillation; I10 Essential (primary) hypertension; E78.5 Hyperlipidemia, unspecified; I25.2 Old myocardial infarction; F41.9 Anxiety disorder, unspecified; Z79.01 Long term (current) use of anticoagulants; Z79.890 Hormone replacement therapy; Z79.899 Other long term (current) drug therapy; Z87.891 Personal history of nicotine dependence; Z86.73 Personal history of transient ischemic attack (TIA), and cerebral infarction without residual deficits; Z85.038 Personal history of other malignant neoplasm of large intestine
CPT/HCPCS: 36415; 93005; 80053; 83735; 84484; 85025; 85610; 85730; 71046; 70450; 99285; 96374; 96375; J3360; J2405

== ENCOUNTER → 2019-08-02 | Day surgery (SDC) | payer MEDICARE ==
[2019-07-28 15:47] VITALS: BMI 22.1
[~2019-08-02] MED LIST: LACTATED RINGERS 1,000 ML IV SCH; LIDOCAINE 1% (10MG/ML) FOR IV START INTRADERMA PRN; LIDOCAINE 1% INJ 10MG/ML (20 ML MDV) ONE; PROPOFOL 10 MG/ML 20 ML VIAL IV ONE
[2019-08-02 11:23] VITALS: TEMP 97.5
--- NOTE | 2019-08-02 12:31 | P.GSHP ---
History of Present Illness H&P Date: 08/02/19 Chief Complaint: Screening, history of colon cancer Patient today for colonoscopy. Patient has a history of rectal cancer. Was treated with low anterior resection and radiation therapy. Did have a anastomotic stricture that required dilation. Otherwise doing well today. Past Medical History Past Medical History: Atrial Fibrillation, Coronary Artery Disease (CAD), Cancer, CVA/TIA, Hyperlipidemia, Hypertension, Neurologic Disorder, Osteoarthritis (OA), Prostate Disorder, Thyroid Disorder Additional Past Medical History / Comment(s): CAD , hypertension, A. fib, BPH, hyperlipidemia, vascular dementia, colon cancer, vitamin D deficiency, osteoarthritis. SKIN CANCER, COLON CANCER RECTAL BLEEDING History of Any Multi-Drug Resistant Organisms: None Reported Past Surgical History: Adenoidectomy, Bowel Resection, Hernia Repair, Tonsillectomy Additional Past Surgical History / Comment(s): COLONOSCOPY , BILATERAL CATARACT SURGERY Past Anesthesia/Blood Transfusion Reactions: No Reported Reaction Smoking Status: Former smoker - Past Family History Father Family Medical History: Cancer, Myocardial Infarction ([place]) Additional Family Medical History / Comment(s): father in 60's Mother Family Medical History: No Reported History Brother(s) Family Medical History: Cancer Sister(s) Family Medical History: Cancer Daughter(s) Family Medical History: No Reported History Son(s) Family Medical History: No Reported History Medications and Allergies Home Medications Medication Instructions Recorded Confirmed Type Furosemide [Lasix] 20 mg PO DAILY 01/27/14 08/02/19 History Warfarin [Coumadin] 2.5 mg PO SUTUTHSA@1700 01/27/14 08/02/19 History Ferocon Cap 1 cap PO DAILY 07/13/16 08/02/19 History Warfarin [Coumadin] 3.75 mg PO MOWEFR@1700 07/13/16 08/02/19 History Levothyroxine Sodium [Synthroid] 50 mcg PO DAILY 06/28/17 08/02/19 History LORazepam [Ativan] 0.5 mg PO TID PRN 09/25/18 08/02/19 History Amiodarone [Cordarone] 100 mg PO DAILY 07/28/19 08/02/19 History Atorvastatin [Lipitor] 20 mg PO HS 07/28/19 08/02/19 History Folic Acid 1 mg PO DAILY 07/28/19 08/02/19 History Allergies Allergy/AdvReac Type Severity Reaction Status Date / Time No Known Allergies Allergy Verified 08/02/19 11:29 Surgical - Exam Vital Signs Temp Pulse Resp BP Pulse Ox 97.5 F L 57 L 16 144/74 100 08/02/19 11:22 08/02/19 11:22 08/02/19 11:22 08/02/19 11:22 08/02/19 11:22 Physical exam: General: Well-developed, well-nourished HEENT: Normocephalic, sclerae nonicteric Abdomen: Nontender, nondistended Extremities: No edema Neuro: Alert and oriented Assessment and Plan (1) Colon cancer screening Narrative/Plan: Will proceed with colonoscopy Current Visit: Yes Status: Acute Code(s): Z12.11 - ENCOUNTER FOR SCREENING FOR MALIGNANT NEOPLASM OF COLON SNOMED Code(s): 634854753
--- NOTE | 2019-08-02 12:42 | P.PCN ---
Date of Procedure: 08/02/19 Procedure(s) Performed: PREOPERATIVE DIAGNOSIS: Colon cancer screening with personal history of rectal carcinoma POSTOPERATIVE DIAGNOSIS: Normal exam PROCEDURE: Colonoscopy ANESTHESIA: MAC SURGEON: Calderon Macias M.D. SPECIMENS: None ENDOSCOPIC PROCEDURE: The patient was placed on the endoscopy table in the left decubitus position. The Olympus colonoscope was inserted into the anus and passed under direct visualization to the base of the cecum. The appendiceal orifice was visualized. From that point the scope was slowly withdrawn inspecting all surfaces carefully. There were no neoplastic inflammatory or polypoid lesions throughout the cecum, ascending, transverse, descending and rectum. The colorectal anastomosis was widely patent. No significant stricture was seen. There was still some tattooing seen at the rectal side of the anastomosis. No neoplastic changes were seen. There was no visible diverticulosis. Digital rectal examination was normal. The patient was taken to the recovery room in stable condition per anesthesia guidelines. RECOMMENDATIONS: Resume diet.
[2019-08-02 13:01] VITALS: RESP 16
[2019-08-02 13:15] VITALS: BP 149/70; PULSE 62
== END ==
LOC: ORWHC2ENDO 10:55
PROVIDERS: ATTEND Surgery
DX: R19.7 Diarrhea, unspecified (principal); I25.10 Atherosclerotic heart disease of native coronary artery without angina pectoris; I48.91 Unspecified atrial fibrillation; I10 Essential (primary) hypertension; E78.5 Hyperlipidemia, unspecified; M19.90 Unspecified osteoarthritis, unspecified site; E07.9 Disorder of thyroid, unspecified; N40.0 Benign prostatic hyperplasia without lower urinary tract symptoms; E55.9 Vitamin D deficiency, unspecified; F01.50 Vascular dementia, unspecified severity, without behavioral disturbance, psychotic disturbance, mood disturbance, and anxiety; Z85.048 Personal history of other malignant neoplasm of rectum, rectosigmoid junction, and anus; Z87.891 Personal history of nicotine dependence; Z86.73 Personal history of transient ischemic attack (TIA), and cerebral infarction without residual deficits; Z79.01 Long term (current) use of anticoagulants; Z79.890 Hormone replacement therapy; Z79.899 Other long term (current) drug therapy; Z90.49 Acquired absence of other specified parts of digestive tract; Z92.3 Personal history of irradiation; Z85.828 Personal history of other malignant neoplasm of skin; Z90.89 Acquired absence of other organs; Z98.890 Other specified postprocedural states; Z98.41 Cataract extraction status, right eye; Z98.42 Cataract extraction status, left eye; Z80.9 Family history of malignant neoplasm, unspecified; Z82.49 Family history of ischemic heart disease and other diseases of the circulatory system
CPT/HCPCS: 45378; J2001; J2704

== ENCOUNTER → 2019-10-27 | Outpatient (CLI) | payer MEDICARE ==
[2019-10-27 11:05] LABS: Basophils # (A) 0.1 k/uL (0-0.2); Basophils % (A) 1 %; Eosinophils # (A) 0.2 k/uL (0-0.7); Eosinophils % (A) 3 %; HCT 38.4 % (39.0-53.0); HGB 12.3 gm/dL (13.0-17.5); Hypochromasia Slight; Lymphocytes # (A) 0.7 k/uL (1.0-4.8); Lymphocytes % (A) 14 %; MCH 31.8 pg (25.0-35.0); MCV 99.4 fL (80.0-100.0); Macrocytosis Slight; Mean Platelet Volume 7.9; Monocytes # (A) 0.4 k/uL (0-1.0); Monocytes % (A) 7 %; Neutrophils # (A) 3.9 k/uL (1.3-7.7); Neutrophils % (A) 74 %; Platelet Count 155 k/uL (150-450); RBC 3.87 m/uL (4.30-5.90); RDW 14.7 % (11.5-15.5); WBC 5.4 k/uL (3.8-10.6)
[2019-10-27 16:11] LABS: ALT 11 U/L (10-49); AST 17 U/L (14-35); African American GFR (CKD) 58.1 (60.0-200.0); Alkaline Phosphatase 102 U/L (41-126); BUN/Creat Ratio 21.54 Ratio (12.00-20.00); Calcium 8.8 mg/dL (8.7-10.3); Carbon Dioxide 27.2 mmol/L (21.6-31.8); Chloride 109 mmol/L (96-109); Chol/HDL Ratio 1.93; Cholesterol 141 mg/dL (0-200); Glucose 96 mg/dL (70-110); Non-African American GFR(CKD) 50.1 (60.0-200.0); Potassium 4.6 mmol/L (3.5-5.5); Sodium 144 mmol/L (135-145); Total Bilirubin 0.8 mg/dL (0.2-1.2); Total Protein 6.4 g/dL (6.2-8.2); Triglycerides <50.0 mg/dL (0.0-149.0)
== END | disposition home or self-care (01) ==
LOC: LABWHC1 09:15
PROVIDERS: ATTEND Family Medicine
DX: Z00.00 Encounter for general adult medical examination without abnormal findings (principal); I12.0 Hypertensive chronic kidney disease with stage 5 chronic kidney disease or end stage renal disease; N18.3 Chronic kidney disease, stage 3 (moderate); D63.1 Anemia in chronic kidney disease; E78.5 Hyperlipidemia, unspecified; Z79.899 Other long term (current) drug therapy; Z86.73 Personal history of transient ischemic attack (TIA), and cerebral infarction without residual deficits
CPT/HCPCS: 36415; 80053; 80061; 82248; 84443; 85025

== ENCOUNTER 2020-06-21 16:32 | Emergency (ER) | payer MEDICARE ==
[2020-06-21 16:56] VITALS: RESP 18; TEMP 98.2
--- NOTE | 2020-06-21 17:49 | ED ---
General Adult HPI - General Chief complaint: Fall Stated complaint: Fall,L Hip Pain Time Seen by Provider: 06/21/20 16:57 Source: patient, family, RN notes reviewed, old records reviewed Mode of arrival: ambulatory Limitations: no limitations - History of Present Illness Initial comments: 85-year-old male is any status post fall which occurred approximately 2 weeks ago. Patient has history of dementia and is accompanied by his daughter previous complaining of pain in the left hip. He has been able to walk and states that he has pain when he lays on his left hip. He denies head or neck trauma. Fall occurred about 2 weeks ago. No fever. No redness. No symptoms in the legs below the left hip. - Related Data Home Medications Medication Instructions Recorded Confirmed Furosemide [Lasix] 20 mg PO DAILY 01/27/14 08/02/19 Warfarin [Coumadin] 2.5 mg PO SUTUTHSA@1700 01/27/14 08/02/19 Ferocon Cap 1 cap PO DAILY 07/13/16 08/02/19 Warfarin [Coumadin] 3.75 mg PO MOWEFR@1700 07/13/16 08/02/19 Levothyroxine Sodium [Synthroid] 50 mcg PO DAILY 06/28/17 08/02/19 LORazepam [Ativan] 0.5 mg PO TID PRN 09/25/18 08/02/19 Amiodarone [Cordarone] 100 mg PO DAILY 07/28/19 08/02/19 Atorvastatin [Lipitor] 20 mg PO HS 07/28/19 08/02/19 Folic Acid 1 mg PO DAILY 07/28/19 08/02/19 Previous Rx's Medication Instructions Recorded Ibuprofen 400 mg PO Q8H PRN #21 tab 06/21/20 Allergies Allergy/AdvReac Type Severity Reaction Status Date / Time No Known Allergies Allergy Verified 06/21/20 16:56 Review of Systems ROS Statement: Those systems with pertinent positive or pertinent negative responses have been documented in the HPI. ROS Other: All systems not noted in ROS Statement are negative. Past Medical History Past Medical History: Atrial Fibrillation, Coronary Artery Disease (CAD), Cancer, CVA/TIA, Hyperlipidemia, Hypertension, Neurologic Disorder, Osteoarthritis (OA), Prostate Disorder, Thyroid Disorder Additional Past Medical History / Comment(s): CAD , hypertension, A. fib, BPH, hyperlipidemia, vascular dementia, colon cancer, vitamin D deficiency, osteoarthritis. SKIN CANCER, COLON CANCER RECTAL BLEEDING History of Any Multi-Drug Resistant Organisms: None Reported Past Surgical History: Adenoidectomy, Bowel Resection, Hernia Repair, Tonsillectomy Additional Past Surgical History / Comment(s): COLONOSCOPY , BILATERAL CATARACT SURGERY Past Anesthesia/Blood Transfusion Reactions: No Reported Reaction Past Psychological History: Anxiety Past Alcohol Use History: None Reported Past Drug Use History: None Reported - Past Family History Father Family Medical History: Cancer, Myocardial Infarction ([place]) Additional Family Medical History / Comment(s): father in 60's Mother Family Medical History: No Reported History Brother(s) Family Medical History: Cancer Sister(s) Family Medical History: Cancer Daughter(s) Family Medical History: No Reported History Son(s) Family Medical History: No Reported History General Exam Limitations: no limitations General appearance: alert, in no apparent distress Head exam: Present: atraumatic, normocephalic Eye exam: Present: normal appearance, PERRL ENT exam: Present: normal exam Neck exam: Present: normal inspection. Absent: tenderness, meningismus Respiratory exam: Present: normal lung sounds bilaterally. Absent: respiratory distress, wheezes, rales Cardiovascular Exam: Present: regular rate, normal rhythm GI/Abdominal exam: Present: soft. Absent: distended, tenderness, guarding, re bound Extremities exam: Present: full ROM, normal capillary refill, other (Patient has some pain and swelling over the trochanteric bursa on the left, no fluctuance, no induration, no erythema). Absent: pedal edema, joint swelling Neurological exam: Present: alert. Absent: motor sensory deficit Psychiatric exam: Present: normal affect, normal mood Skin exam: Present: warm, dry, intact Course Vital Signs 06/21/20 16:53 Temperature 98.2 F Pulse Rate 67 Respiratory 18 Rate Blood Pressure 161/78 O2 Sat by Pulse 95 Oximetry Medical Decision Making - Medical Decision Making X-ray of the hip and pelvis are performed which are negative for acute bony abnormality. Patient has a noninfected trochanteric bursitis on the left. Will take low-dose NSAIDs for several days, rest and apply ice. Disposition Clinical Impression: Fall, Trochanteric bursitis of left hip Disposition: HOME SELF-CARE Condition: Fair Instructions (If sedation given, give patient instructions): Hip Bursitis (ED), Fall Prevention for Older Adults (ED) Prescriptions: Ibuprofen 400 mg PO Q8H PRN #21 tab PRN Reason: Pain Is patient prescribed a controlled substance at d/c from ED?: No Referrals: Duc Keller MD [Primary Care Provider] - 1-2 days Time of Disposition: 17:48
--- NOTE | 2020-06-21 17:49 | XR ---
EXAMINATION TYPE: XR Hip LT and AP Pelvis DATE OF EXAM: 06/21/2020 COMPARISON: 08/05/2013 HISTORY: Fall 2 weeks ago. Pain. TECHNIQUE: 3 views FINDINGS: Pelvic ring is intact. Proximal left femur and hip joint appear intact. Hip joint spaces ar e fairly normal. Sacroiliac joints appear intact. There are phleboliths in the pelvis. IMPRESSION: No acute abnormality of the pelvis and left hip. No change compared to pelvis x-ray of
[2020-06-21 18:03] VITALS: BP 157/78; PULSE 75
== END 2020-06-21 18:08 | disposition home or self-care (01) ==
LOC: EC 16:32
DX: M70.62 Trochanteric bursitis, left hip (principal); E07.9 Disorder of thyroid, unspecified; I10 Essential (primary) hypertension; E78.5 Hyperlipidemia, unspecified; F41.9 Anxiety disorder, unspecified; Z79.890 Hormone replacement therapy; Z79.899 Other long term (current) drug therapy; Z79.01 Long term (current) use of anticoagulants; Z85.038 Personal history of other malignant neoplasm of large intestine; Z86.73 Personal history of transient ischemic attack (TIA), and cerebral infarction without residual deficits; Z85.828 Personal history of other malignant neoplasm of skin
CPT/HCPCS: 73502; 99284

== ENCOUNTER 2020-08-17 12:23 | Emergency (ER) | payer MEDICARE ==
[2020-08-17] MEDS ORDERED: SODIUM CHLORIDE 0.9% 500 ML 500 ML IV STA (13:01)
[2020-08-17] MEDS ORDERED: ONDANSETRON 4 MG/2 ML VIAL IVP STA (13:01)
[2020-08-17] MEDS ORDERED: PANTOPRAZOLE 40 MG/10 ML VIAL IVP STA (13:01)
--- NOTE | 2020-08-17 13:12 | ED ---
General Adult HPI - General Chief complaint: Dizziness Stated complaint: ABD pain and dizziness. Source: patient Mode of arrival: ambulatory Limitations: no limitations - History of Present Illness Initial comments: 85-year-old male with past history of A. fib, coronary disease, high blood pressure who presents to the emergency department with reported abdominal cramping. Patient reports to generalized abdominal cramping which started yesterday. He's had a decreased appetite. Denies vomiting. Attempted to take Pepto without symptom improvement. Denies any changes in his urination to include dysuria, hematuria or double voiding. Denies any changes in his bowel movements to include diarrhea, constipation, melenic stools or hematochezia. Patient had a bowel movement yesterday. No fevers or chills. No sick contacts. Also admits to sensation that he is going to Pass out when he stands up. Denies vertiginous symptoms. No headaches or visual changes. No shortness of breath. Patient does have a history of colon cancer with resection. No other alleviating, precipitating or modifying factors - Related Data Home Medications Medication Instructions Recorded Confirmed Furosemide [Lasix] 20 mg PO DAILY 01/27/14 08/17/20 Warfarin [Coumadin] 2.5 mg PO MOWEFR 01/27/14 08/17/20 Ferocon Cap 1 cap PO DAILY 07/13/16 08/17/20 Warfarin [Coumadin] 3.5 mg PO SUTUTHSA 07/13/16 08/17/20 Levothyroxine Sodium [Synthroid] 50 mcg PO DAILY 06/28/17 08/17/20 Atorvastatin [Lipitor] 20 mg PO HS 07/28/19 08/17/20 Folic Acid 1 mg PO DAILY 07/28/19 08/17/20 ALPRAZolam [Xanax] 0.25 mg PO TID PRN 08/17/20 08/17/20 Amiodarone HCl [Pacerone] 100 mg PO DAILY 08/17/20 08/17/20 Loratadine 10 mg PO DAILY 08/17/20 08/17/20 Memantine [Namenda] 5 mg PO BID@0800,1200 08/17/20 08/17/20 Metoprolol Succinate [Toprol XL] 25 mg PO DAILY 08/17/20 08/17/20 Previous Rx's Medication Instructions Recorded Amoxicillin/Potassium Clav 1 tab PO Q12HR #20 tab 08/17/20 [Augmentin 875-125 Tablet] Azithromycin [Zithromax Z-pack (6 0 mg PO DIRECTED #1 pack 08/17/20 tabs)] Polyethylene Glycol 3350 [Miralax] 17 gm PO DAILY #527 gm 08/17/20 Allergies Allergy/AdvReac Type Severity Reaction Status Date / Time No Known Allergies Allergy Verified 08/17/20 15:50 Review of Systems ROS Statement: Those systems with pertinent positive or pertinent negative responses have been documented in the HPI. ROS Other: All systems not noted in ROS Statement are negative. Past Medical History Past Medical History: Atrial Fibrillation, Coronary Artery Disease (CAD), Cancer, CVA/TIA, Hyperlipidemia, Hypertension, Neurologic Disorder, Osteoarthritis (OA), Prostate Disorder, Thyroid Disorder Additional Past Medical History / Comment(s): CAD , hypertension, A. fib, BPH, hyperlipidemia, vascular dementia, colon cancer, vitamin D deficiency, osteoarthritis. SKIN CANCER, COLON CANCER RECTAL BLEEDING History of Any Multi-Drug Resistant Organisms: None Reported Past Surgical History: Adenoidectomy, Bowel Resection, Hernia Repair, Tonsillectomy Additional Past Surgical History / Comment(s): COLONOSCOPY , BILATERAL CATARACT SURGERY Past Anesthesia/Blood Transfusion Reactions: No Reported Reaction Past Psychological History: Anxiety Smoking Status: Former smoker Past Alcohol Use History: None Reported Past Drug Use History: None Reported - Past Family History Father Family Medical History: Cancer, Myocardial Infarction ([place]) Additional Family Medical History / Comment(s): father in 60's Mother Family Medical History: No Reported History Brother(s) Family Medical History: Cancer Sister(s) Family Medical History: Cancer Daughter(s) Family Medical History: No Reported History Son(s) Family Medical History: No Reported History General Exam Limitations: no limitations General appearance: alert, in no apparent distress Head exam: Present: atraumatic, normocephalic, normal inspection Eye exam: Present: normal appearance, PERRL, EOMI. Absent: scleral icterus, conjunctival injection, periorbital swelling ENT exam: Present: normal exam, mucous membranes moist Neck exam: Present: normal inspection. Absent: tenderness, meningismus, lymphadenopathy Respiratory exam: Present: normal lung sounds bilaterally. Absent: respiratory distress, wheezes, rales, rhonchi, stridor Cardiovascular Exam: Present: regular rate, normal rhythm, normal heart sounds. Absent: systolic murmur, diastolic murmur, rubs, gallop, clicks GI/Abdominal exam: Present: soft, tenderness (periumbilical), normal bowel sounds. Absent: distended, guarding, rebound, rigid Extremities exam: Present: normal inspection, full ROM, normal capillary refill. Absent: tenderness, pedal edema, joint swelling, calf tenderness Back exam: Present: normal inspection Neurological exam: Present: alert, oriented X3, CN II-XII intact Psychiatric exam: Present: normal affect, normal mood Skin exam: Present: warm, dry, intact, normal color. Absent: rash Course Vital Signs 08/17/20 08/17/20 08/17/20 12:28 13:31 16:43 Temperature 97.9 F 98.5 F 98.0 F Pulse Rate 60 58 L 63 Respiratory 18 20 18 Rate Blood Pressure 178/81 144/77 155/79 O2 Sat by Pulse 97 98 97 Oximetry EKG Findings - EKG Comments: EKG Findings:: Daily demonstrates sinus rhythm with first-degree block. Rate of 63. OR interval 246. QRS 94. QTC of 460. Patient does have inverted T-wave and ST depression in the inferior leads as well as V1 through V3 Medical Decision Making - Medical Decision Making Upon return the patient is placed in room 8. There are history of physical exam is performed. IV is established and the patient is given a 500 bolus, 40 mg of Protonix and 4 mg of Zofran. Lab studies are conducted. INR is subtherapeutic at 1.8. Creatinine 1.2 which is patient's baseline. Covid is not detected. CT of the patient's abdomen and pelvis is performed which demonstrates moderate stool burden and mild bilateral hydronephrosis. Chest x-ray demonstrates perihilar infiltrates as well as infiltrates of the right medial lung base. Left perihilar infiltrate demonstrates more of a nodular periods. Suspicious for pneumonia. This is instructed with the patient. Patient reports to feeling much improved after medication administration. He was given a dose of azithromycin and Augmentin. Patient's feels well enough to go home at this time. I will give him a prescription for azithromycin and Augmentin. Also recommended that the patient take MiraLAX daily until he starts having smooth bowel movements. He must see Dr. Keller next week. Return to the emergency room for any new or worsening symptoms. Patient and his agree to this the patient was discharged home in stable condition - Lab Data Result diagrams: 08/17/20 13:07 08/17/20 13:07 Lab Results 08/17/20 08/17/20 08/17/20 Range/Units 13:07 13:07 13:07 WBC 6.9 (3.8-10.6) k/uL RBC 4.07 L (4.30-5.90) m/uL Hgb 13.6 (13.0-17.5) gm/dL Hct 39.8 (39.0-53.0) % MCV 97.8 (80.0-100.0) fL MCH 33.4 (25.0-35.0) pg MCHC 34.2 (31.0-37.0) g/dL RDW 14.4 (11.5-15.5) % Plt Count 161 (150-450) k/uL MPV 8.0 Neutrophils % 76 % Lymphocytes % 14 % Monocytes % 5 % Eosinophils % 4 % Basophils % 1 % Neutrophils # 5.2 (1.3-7.7) k/uL Lymphocytes # 0.9 L (1.0-4.8) k/uL Monocytes # 0.4 (0-1.0) k/uL Eosinophils # 0.2 (0-0.7) k/uL Basophils # 0.1 (0-0.2) k/uL PT 17.9 H (9.0-12.0) sec INR 1.8 H (<1.2) APTT 24.7 (22.0-30.0) sec Sodium (137-145) mmol/L Potassium (3.5-5.1) mmol/L Chloride (98-107) mmol/L Carbon Dioxide (22-30) mmol/L Anion Gap mmol/L BUN (9-20) mg/dL Creatinine (0.66-1.25) mg/dL Est GFR (CKD-EPI)AfAm (>60 ml/min/1.73 sqM) Est GFR (CKD-EPI)NonAf (>60 ml/min/1.73 sqM) Glucose (74-99) mg/dL Plasma Lactic Acid [place] (0.7-2.0) mmol/L Calcium (8.4-10.2) mg/dL Total Bilirubin (0.2-1.3) mg/dL AST (17-59) U/L ALT (4-49) U/L Alkaline Phosphatase (38-126) U/L Troponin I (0.000-0.034) ng/mL Total Protein (6.3-8.2) g/dL Albumin (3.5-5.0) g/dL Lipase (23-300) U/L Urine Color Light Yellow Urine Appearance Clear (Clear) Urine pH 6.5 (5.0-8.0) Ur Specific [place] 1.008 (1.001-1.035) Urine Protein Negative (Negative) Urine Glucose (UA) Negative (Negative) Urine Ketones Negative (Negative) Urine Blood Negative (Negative) Urine Nitrite Negative (Negative) Urine Bilirubin Negative (Negative) Urine Urobilinogen <2.0 (<2.0) mg/dL Ur Leukocyte Esterase Negative (Negative) Coronavirus (PCR) (Not Detectd) 08/17/20 08/17/20 08/17/20 Range/Units 13:07 13:07 13:07 WBC (3.8-10.6) k/uL RBC (4.30-5.90) m/uL Hgb (13.0-17.5) gm/dL Hct (39.0-53.0) % MCV (80.0-100.0) fL MCH (25.0-35.0) pg MCHC (31.0-37.0) g/dL RDW (11.5-15.5) % Plt Count (150-450) k/uL MPV Neutrophils % % Lymphocytes % % Monocytes % % Eosinophils % % Basophils % % Neutrophils # (1.3-7.7) k/uL Lymphocytes # (1.0-4.8) k/uL Monocytes # (0-1.0) k/uL Eosinophils # (0-0.7) k/uL Basophils # (0-0.2) k/uL PT (9.0-12.0) sec INR (<1.2) APTT (22.0-30.0) sec Sodium 141 (137-145) mmol/L Potassium 4.4 (3.5-5.1) mmol/L Chloride 105 (98-107) mmol/L Carbon Dioxide 30 (22-30) mmol/L Anion Gap 6 mmol/L BUN 20 (9-20) mg/dL Creatinine 1.26 H (0.66-1.25) mg/dL Est GFR (CKD-EPI)AfAm 60 (>60 ml/min/1.73 sqM) Est GFR (CKD-EPI)NonAf 52 (>60 ml/min/1.73 sqM) Glucose 90 (74-99) mg/dL Plasma Lactic Acid [place] 1.1 (0.7-2.0) mmol/L Calcium 9.0 (8.4-10.2) mg/dL Total Bilirubin 0.7 (0.2-1.3) mg/dL AST 20 (17-59) U/L ALT 10 (4-49) U/L Alkaline Phosphatase 120 (38-126) U/L Troponin I <0.012 (0.000-0.034) ng/mL Total Protein 7.3 (6.3-8.2) g/dL Albumin 4.4 (3.5-5.0) g/dL Lipase 183 (23-300) U/L Urine Color Urine Appearance (Clear) Urine pH (5.0-8.0) Ur Specific [place] (1.001-1.035) Urine Protein (Negative) Urine Glucose (UA) (Negative) Urine Ketones (Negative) Urine Blood (Negative) Urine Nitrite (Negative) Urine Bilirubin (Negative) Urine Urobilinogen (<2.0) mg/dL Ur Leukocyte Esterase (Negative) Coronavirus (PCR) (Not Detectd) 08/17/20 Range/Units 13:16 WBC (3.8-10.6) k/uL RBC (4.30-5.90) m/uL Hgb (13.0-17.5) gm/dL Hct (39.0-53.0) % MCV (80.0-100.0) fL MCH (25.0-35.0) pg MCHC (31.0-37.0) g/dL RDW (11.5-15.5) % Plt Count (150-450) k/uL MPV Neutrophils % % Lymphocytes % % Monocytes % % Eosinophils % % Basophils % % Neutrophils # (1.3-7.7) k/uL Lymphocytes # (1.0-4.8) k/uL Monocytes # (0-1.0) k/uL Eosinophils # (0-0.7) k/uL Basophils # (0-0.2) k/uL PT (9.0-12.0) sec INR (<1.2) APTT (22.0-30.0) sec Sodium (137-145) mmol/L Potassium (3.5-5.1) mmol/L Chloride (98-107) mmol/L Carbon Dioxide (22-30) mmol/L Anion Gap mmol/L BUN (9-20) mg/dL Creatinine (0.66-1.25) mg/dL Est GFR (CKD-EPI)AfAm (>60 ml/min/1.73 sqM) Est GFR (CKD-EPI)NonAf (>60 ml/min/1.73 sqM) Glucose (74-99) mg/dL Plasma Lactic Acid [place] (0.7-2.0) mmol/L Calcium (8.4-10.2) mg/dL Total Bilirubin (0.2-1.3) mg/dL AST (17-59) U/L ALT (4-49) U/L Alkaline Phosphatase (38-126) U/L Troponin I (0.000-0.034) ng/mL Total Protein (6.3-8.2) g/dL Albumin (3.5-5.0) g/dL Lipase (23-300) U/L Urine Color Urine Appearance (Clear) Urine pH (5.0-8.0) Ur Specific [place] (1.001-1.035) Urine Protein (Negative) Urine Glucose (UA) (Negative) Urine Ketones (Negative) Urine Blood (Negative) Urine Nitrite (Negative) Urine Bilirubin (Negative) Urine Urobilinogen (<2.0) mg/dL Ur Leukocyte Esterase (Negative) Coronavirus (PCR) Not Detected (Not Detectd) Disposition Clinical Impression: Abdominal pain, CAP (community acquired pneumonia), Constipation Disposition: HOME SELF-CARE Condition: Stable Instructions (If sedation given, give patient instructions): Constipation (ED), Community Acquired Pneumonia (ED), Abdominal Pain (ED) Additional Instructions: Please follow-up with Dr. Keller next week. Return to the emergency room for any new or worsening symptoms Prescriptions: Amoxicillin/Potassium Clav [Augmentin 875-125 Tablet] 1 tab PO Q12HR #20 tab Polyethylene Glycol 3350 [Miralax] 17 gm PO DAILY #527 gm Azithromycin [Zithromax Z-pack (6 tabs)] 0 mg PO DIRECTED #1 pack Is patient prescribed a controlled substance at d/c from ED?: No Referrals: Duc Keller MD [Primary Care Provider] - 1-2 days Time of Disposition: 16:19
[2020-08-17 13:36] LABS: Basophils # (A) 0.1 k/uL (0-0.2); Basophils % (A) 1 %; Eosinophils # (A) 0.2 k/uL (0-0.7); Eosinophils % (A) 4 %; HCT 39.8 % (39.0-53.0); HGB 13.6 gm/dL (13.0-17.5); Lymphocytes # (A) 0.9 k/uL (1.0-4.8); Lymphocytes % (A) 14 %; MCH 33.4 pg (25.0-35.0); MCHC 34.2 g/dL (31.0-37.0); MCV 97.8 fL (80.0-100.0); Monocytes # (A) 0.4 k/uL (0-1.0); Monocytes % (A) 5 %; Neutrophils # (A) 5.2 k/uL (1.3-7.7); Neutrophils % (A) 76 %; Platelet Count 161 k/uL (150-450); RBC 4.07 m/uL (4.30-5.90); RDW 14.4 % (11.5-15.5); WBC 6.9 k/uL (3.8-10.6)
[2020-08-17 13:44] LABS: Albumin 4.4 g/dL (3.5-5.0); Potassium 4.4 mmol/L (3.5-5.1); Total Bilirubin 0.7 mg/dL (0.2-1.3); Total Protein 7.3 g/dL (6.3-8.2)
[2020-08-17 13:45] LABS: INR 1.8 (<1.2); Partial Thromboplastin Time 24.7 sec (22.0-30.0); Prothrombin Time 17.9 sec (9.0-12.0)
--- NOTE | 2020-08-17 13:47 | XR ---
EXAMINATION TYPE: XR chest 2V DATE OF EXAM: 08/17/2020 COMPARISON: 09/25/2018 HISTORY: Shortness of breath TECHNIQUE: Frontal and lateral views of the chest are obtained. FINDINGS: Scattered senescent parenchymal changes noted. Hyperinflation compatible with COPD. Perihilar infiltrates as well as infiltrate right medial lung base. Left perihilar infiltrate demonst rates more of a nodular appearance. Findings are suspicious for pneumonia. Infiltrates of other etiol ogy not excluded and clinical correlation as well as appropriate follow-up is advised. Heart size is stable. Mediastinal structures are stable and grossly unremarkable. No evidence for hilar prominence. Degenerative changes dorsal spine. IMPRESSION: 1. Perihilar infiltrates as well as infiltrate right medial lung base. Left perihilar infiltrate demo nstrates more of a nodular appearance. Findings are suspicious for pneumonia. Infiltrates of other et iology not excluded and clinical correlation as well as appropriate follow-up is advised.
[2020-08-17 14:05] LABS: Appearance,Urine Clear (Clear); Bilirubin,Urine Negative (Negative); Blood,Urine Negative (Negative); Color,Urine Light Yellow; Glucose,Urine (UA) Negative (Negative); Ketones,Urine Negative (Negative); Leukocyte Esterase,Urine Negative (Negative); Nitrite,Urine Negative (Negative); PH, Urine 6.5 (5.0-8.0); Protein,Urine Negative (Negative); Specific Gravity,Urine 1.008 (1.001-1.035); Urobilinogen,Urine <2.0 mg/dL (<2.0)
--- NOTE | 2020-08-17 15:56 | CT ---
EXAMINATION TYPE: CT abdomen pelvis w con DATE OF EXAM: 08/17/2020 COMPARISON: 04/21/2016. HISTORY: abdominal pain CT DLP: 757 mGycm Automated exposure control for dose reduction was used. TECHNIQUE: Helical acquisition of images was performed from the lung bases through the pelvis. CONTRAST: Performed without Oral Contrast and with IV Contrast, patient injected with 80cc mL of Isovue 300. FINDINGS: LUNG BASES: Mild bibasilar atelectasis. Mild right pleural plaque seen. Small right lower lobe calcif ied granuloma present. LIVER/GB: No significant abnormality is appreciated. PANCREAS: No significant abnormality is seen. SPLEEN: No significant abnormality is seen. ADRENALS: No significant abnormality is seen. KIDNEYS: Mild bilateral hydronephrosis without nephrolithiasis. Multiple bilateral simple appearing r enal cysts measuring up to 2.9 cm. FREE AIR: No free air is visualized. RETROPERITONEAL ADENOPATHY: None visualized REPRODUCTIVE ORGANS: No significant abnormality is seen URINARY BLADDER: Moderately distended urinary bladder, otherwise unremarkable. PELVIC ADENOPATHY: None visualized. OSSEOUS STRUCTURES: No significant abnormality is seen. BOWEL: Postsurgical changes involving the sigmoid colon. No bowel obstruction, free air or fluid. Mo derate colonic stool burden. OTHER: Pelvic phleboliths are seen. Moderate aortoiliac atherosclerotic disease. IMPRESSION: MILD BILATERAL HYDRONEPHROSIS WITHOUT OBSTRUCTING CALCULI. FINDINGS ARE LIKELY RELATED TO MODERATELY DISTENDED URINARY BLADDER. Moderate stool burden. Chronic and incidental findings as above.
[2020-08-17] MEDS ORDERED: AMOXIC-POT CLAV 875-125MG 1 EACH TAB PO STA (16:16)
[2020-08-17] MEDS ORDERED: AZITHROMYCIN 500 MG TAB PO STA (16:16)
[2020-08-17 16:44] VITALS: BP 155/79; PULSE 63; RESP 18; TEMP 98
== END 2020-08-17 16:44 | disposition home or self-care (01) ==
LOC: EC 12:23
DX: K59.00 Constipation, unspecified (principal); J18.9 Pneumonia, unspecified organism; I48.91 Unspecified atrial fibrillation; I25.10 Atherosclerotic heart disease of native coronary artery without angina pectoris; E78.5 Hyperlipidemia, unspecified; I10 Essential (primary) hypertension; M19.90 Unspecified osteoarthritis, unspecified site; E07.9 Disorder of thyroid, unspecified; Z86.73 Personal history of transient ischemic attack (TIA), and cerebral infarction without residual deficits; Z87.891 Personal history of nicotine dependence
CPT/HCPCS: 36415; 93005; 80053; 83605; 83690; 84484; 85025; 85610; 85730; 81003; 87635; 71046; 74177; 99284; 96374; 96375; J2405; C9113; Q9967

== ENCOUNTER 2021-01-13 10:24 | Emergency (ER) | payer MEDICARE ==
[2021-01-13 10:39] VITALS: RESP 18
--- NOTE | 2021-01-13 11:02 | ED ---
Fall HPI - General Chief Complaint: Fall Stated Complaint: fall, knee pain Time Seen by Provider: 01/13/21 10:48 Source: patient Mode of arrival: ambulatory - History of Present Illness Initial Comments: 85-year-old male with history of A. fib on Coumadin presenting to emergency from the chief complaint of a fall that occurred yesterday. The states the patient had lost his balance while he was walking and fell down, forward onto the hard floor. This was a fall from a standing level. states the patient has been having multiple falls over the last year for losing his balance. He states this is she has only been occurring over the last year. Patient denies any head injuries at this time. He denies any leg headedness or dizziness prior to the onset of fall. He denies any other complaints at this time aside from pain in the right knee that seems to be exacerbated with flexion and alleviated at rest. Denies any radiation of pain. Denies any other injuries. - Related Data Home Medications Medication Instructions Recorded Confirmed Furosemide [Lasix] 20 mg PO DAILY 01/27/14 01/13/21 Warfarin [Coumadin] 2.5 mg PO MOFR 01/27/14 01/13/21 Ferocon Cap 1 cap PO DAILY 07/13/16 01/13/21 Warfarin [Coumadin] 1.25 mg PO SUTUWETHSA 07/13/16 01/13/21 Levothyroxine Sodium [Synthroid] 50 mcg PO DAILY 06/28/17 01/13/21 Atorvastatin [Lipitor] 20 mg PO HS 07/28/19 01/13/21 Folic Acid 1 mg PO DAILY 07/28/19 01/13/21 Amiodarone HCl [Pacerone] 100 mg PO DAILY 08/17/20 01/13/21 Loratadine 10 mg PO DAILY 08/17/20 01/13/21 Memantine [Namenda] 5 mg PO BID@0800,1200 08/17/20 01/13/21 Metoprolol Succinate [Toprol XL] 25 mg PO DAILY 08/17/20 01/13/21 Allergies Allergy/AdvReac Type Severity Reaction Status Date / Time No Known Allergies Allergy Verified 01/13/21 11:45 Review of Systems ROS Statement: Those systems with pertinent positive or pertinent negative responses have been documented in the HPI. ROS Other: All systems not noted in ROS Statement are negative. Past Medical History Past Medical History: Atrial Fibrillation, Coronary Artery Disease (CAD), Ca ncer, CVA/TIA, Hyperlipidemia, Hypertension, Neurologic Disorder, Osteoarthritis (OA), Prostate Disorder, Thyroid Disorder Additional Past Medical History / Comment(s): CAD , hypertension, A. fib, BPH, hyperlipidemia, vascular dementia, colon cancer, vitamin D deficiency, os teoarthritis. SKIN CANCER, COLON CANCER RECTAL BLEEDING History of Any Multi-Drug Resistant Organisms: None Reported Past Surgical History: Adenoidectomy, Bowel Resection, Hernia Repair, Tonsillectomy Additional Past Surgical History / Comment(s): COLONOSCOPY , BILATERAL CATARACT SURGERY Past Anesthesia/Blood Transfusion Reactions: No Reported Reaction Past Psychological History: Anxiety Smoking Status: Former smoker Past Alcohol Use History: None Reported Past Drug Use History: None Reported - Past Family History Father Family Medical History: Cancer, Myocardial Infarction ([place]) Additional Family Medical History / Comment(s): father in 60's Mother Family Medical History: No Reported History Brother(s) Family Medical History: Cancer Sister(s) Family Medical History: Cancer Daughter(s) Family Medical History: No Reported History Son(s) Family Medical History: No Reported History General Exam Limitations: no limitations General appearance: alert, in no apparent distress Head exam: Present: atraumatic, normocephalic, normal inspection Eye exam: Present: normal appearance, PERRL, EOMI Pupils: Present: normal accommodation ENT exam: Present: normal exam, normal oropharynx, mucous membranes moist Neck exam: Present: normal inspection, full ROM. Absent: tenderness, lymphadenopathy Respiratory exam: Present: normal lung sounds bilaterally. Absent: respiratory distress, wheezes, rales, rhonchi, stridor, chest wall tenderness, accessory muscle use Cardiovascular Exam: Present: regular rate, normal rhythm, normal heart sounds. Absent: systolic murmur, diastolic murmur GI/Abdominal exam: Present: soft. Absent: distended, tenderness, guarding Extremities exam: Present: normal inspection, tenderness (Infrapatellar tenderness of the right knee), normal capillary refill, other (Palpable DP and PT bilaterally. Sensation intact in right leg.). Absent: full ROM (Limited range of motion with full flexion in the right knee), pedal edema, joint swelling (No swelling of the knee), calf tenderness Back exam: Present: normal inspection, full ROM. Absent: tenderness Neurological exam: Present: alert, oriented X3 Psychiatric exam: Present: normal affect, normal mood Skin exam: Present: warm, dry, intact, normal color Course Vital Signs 01/13/21 01/13/21 10:37 13:13 Temperature 98.5 F 98.1 F Pulse Rate 78 72 Respiratory 18 18 Rate Blood Pressure 145/75 140/79 O2 Sat by Pulse 96 98 Oximetry Medical Decision Making - Medical Decision Making 85-year-old male with history of A. fib on Coumadin presenting to emergency from the chief complaint of a fall that occurred yesterday. On physical examination, no focal deficits. There is small region of ecchymosis on the infrapatellar region of the right knee. He is otherwise neurovascularly intact in the right lower extremities. Elevated INR of 2.4. Patient is on Coumadin. X-ray of the right knee is unremarkable. Renal function appears to be at his baseline. CT of the brain and C-spine shows no acute findings. They will follow up with a primary care physician. Return parameters were thoroughly discussed with the and patient who is understanding and agreeable. Case discussed with physician - Lab Data Result diagrams: 01/13/21 11:43 01/13/21 11:43 Lab Results 01/13/21 01/13/21 01/13/21 Range/Units 11:43 11:43 11:43 WBC 7.1 (3.8-10.6) k/uL RBC 3.91 L (4.30-5.90) m/uL Hgb 13.0 (13.0-17.5) gm/dL Hct 39.4 (39.0-53.0) % MCV 100.6 H (80.0-100.0) fL MCH 33.2 (25.0-35.0) pg MCHC 33.0 (31.0-37.0) g/dL RDW 15.0 (11.5-15.5) % Plt Count 167 (150-450) k/uL MPV 8.4 Neutrophils % 79 % Lymphocytes % 8 % Monocytes % 8 % Eosinophils % 2 % Basophils % 1 % Neutrophils # 5.6 (1.3-7.7) k/uL Lymphocytes # 0.6 L (1.0-4.8) k/uL Monocytes # 0.6 (0-1.0) k/uL Eosinophils # 0.1 (0-0.7) k/uL Basophils # 0.1 (0-0.2) k/uL Macrocytosis Slight PT 23.1 H (9.0-12.0) sec INR 2.4 H (<1.2) APTT 34.6 H (22.0-30.0) sec Sodium 139 (137-145) mmol/L Potassium 4.3 (3.5-5.1) mmol/L Chloride 104 (98-107) mmol/L Carbon Dioxide 28 (22-30) mmol/L Anion Gap 7 mmol/L BUN 23 H (9-20) mg/dL Creatinine 1.29 H (0.66-1.25) mg/dL Est GFR (CKD-EPI)AfAm 58 (>60 ml/min/1.73 sqM) Est GFR (CKD-EPI)NonAf 50 (>60 ml/min/1.73 sqM) Glucose 131 H (74-99) mg/dL Calcium 8.6 (8.4-10.2) mg/dL Total Bilirubin 1.0 (0.2-1.3) mg/dL AST 23 (17-59) U/L ALT 13 (4-49) U/L Alkaline Phosphatase 102 (38-126) U/L Total Protein 6.4 (6.3-8.2) g/dL Albumin 3.9 (3.5-5.0) g/dL - EKG Data EKG Comments: Sinus rhythm with first-degree block Ventricular rate 61, para 276, QTc 94, QTC 442. Disposition Clinical Impression: Fall, Right knee injury Disposition: HOME SELF-CARE Condition: Stable Instructions (If sedation given, give patient instructions): Fall Prevention (ED) Additional Instructions: Please return to the Emergency Department if symptoms worsen or any other concer ns. Is patient prescribed a controlled substance at d/c from ED?: No Referrals: Duc Keller MD [Primary Care Provider] - 1-2 days Time of Disposition: 13:00
[2021-01-13 12:09] LABS: Basophils # (A) 0.1 k/uL (0-0.2); Basophils % (A) 1 %; Eosinophils # (A) 0.1 k/uL (0-0.7); Eosinophils % (A) 2 %; HCT 39.4 % (39.0-53.0); Lymphocytes # (A) 0.6 k/uL (1.0-4.8); Lymphocytes % (A) 8 %; MCH 33.2 pg (25.0-35.0); MCV 100.6 fL (80.0-100.0); Macrocytosis Slight; Mean Platelet Volume 8.4; Monocytes # (A) 0.6 k/uL (0-1.0); Monocytes % (A) 8 %; Neutrophils # (A) 5.6 k/uL (1.3-7.7); Neutrophils % (A) 79 %; Platelet Count 167 k/uL (150-450); RBC 3.91 m/uL (4.30-5.90); WBC 7.1 k/uL (3.8-10.6)
--- NOTE | 2021-01-13 12:09 | CT ---
EXAMINATION TYPE: CT brain wo con DATE OF EXAM: 01/13/2021 COMPARISON: 09/25/2028 HISTORY: fall, pain CT DLP: 1052.4 mGycm Automated exposure control for dose reduction was used. FINDINGS: Moderate generalized degenerative change. Low-attenuation in the white matter is nonspecific but most typical of remote white matter ischemia. No midline shift or mass effect. Calvarium intact. Craniocervical junction maintained. Sella turcica has a normal appearance. Sinuses are clear. Intracranial atherosclerotic changes are noted. Orbits are symmetric. IMPRESSION: DEGENERATIVE AND NONSPECIFIC WHITE MATTER CHANGES MOST TYPICAL OF REMOTE WHITE MATTER ISCHEMIC
--- NOTE | 2021-01-13 12:11 | XR ---
EXAMINATION TYPE: XR knee complete RT DATE OF EXAM: 01/13/2021 COMPARISON: NONE HISTORY: Pain TECHNIQUE: Three views are submitted. FINDINGS: Diffuse osteopenia with narrowing of the medial compartment of the knee joint.. Osseous structures a re intact. No acute fracture seen. Vascular calcifications noted. Prepatellar soft tissue calcifica tion. IMPRESSION: 1. No acute fracture or dislocation. 2. Diffuse osteopenia.
[2021-01-13 12:28] LABS: Albumin 3.9 g/dL (3.5-5.0); Calcium 8.6 mg/dL (8.4-10.2); Potassium 4.3 mmol/L (3.5-5.1); Total Protein 6.4 g/dL (6.3-8.2)
[2021-01-13 12:48] LABS: INR 2.4 (<1.2); Partial Thromboplastin Time 34.6 sec (22.0-30.0); Prothrombin Time 23.1 sec (9.0-12.0)
[2021-01-13 13:14] VITALS: BP 140/79; PULSE 72; TEMP 98.1
== END 2021-01-13 13:10 | disposition home or self-care (01) ==
LOC: EC 10:24
DX: S89.91XA Unspecified injury of right lower leg, initial encounter (principal); R29.6 Repeated falls; I10 Essential (primary) hypertension; I48.91 Unspecified atrial fibrillation; I25.10 Atherosclerotic heart disease of native coronary artery without angina pectoris; E78.5 Hyperlipidemia, unspecified; M19.90 Unspecified osteoarthritis, unspecified site; E07.9 Disorder of thyroid, unspecified; F41.9 Anxiety disorder, unspecified; Z90.89 Acquired absence of other organs; Z87.891 Personal history of nicotine dependence; Z86.73 Personal history of transient ischemic attack (TIA), and cerebral infarction without residual deficits; Z79.01 Long term (current) use of anticoagulants; Z85.038 Personal history of other malignant neoplasm of large intestine; Z85.828 Personal history of other malignant neoplasm of skin; W01.0XXA Fall on same level from slipping, tripping and stumbling without subsequent striking against object, initial encounter; Y93.01 Activity, walking, marching and hiking
CPT/HCPCS: 36415; 70450; 80053; 85025; 85610; 85730; 93005; 99284

== ENCOUNTER 2021-03-13 10:36 | Emergency (ER) | payer MEDICARE ==
[2021-03-13 10:50] VITALS: TEMP 97
[2021-03-13] MEDS ORDERED: MORPHINE SULFATE 4 MG/ML SYRINGE IV STA (11:04)
--- NOTE | 2021-03-13 11:12 | ED ---
General Adult HPI - General Chief complaint: Weakness Stated complaint: fall, rib pain Time Seen by Provider: 03/13/21 10:51 Source: patient, family, RN notes reviewed Mode of arrival: wheelchair Limitations: no limitations - History of Present Illness Initial comments: 85-year-old male with a past medical history of atrial fibrillation on Coumadin, CAD, CVA, hyperlipidemia, hypertension, dementia, thyroid disorder presents to the emergency room for a chief complaint of fall. accompanies patient and states that patient has been falling for the past couple days. States that yesterday he fell on his right side and has been somewhat more weak than normal. She states that today she found about her walker for him but she was complaining of right-sided rib pain since she wanted him reevaluated. Denies fevers at home. He sat patient is a history of falling.Patient has no other complaints at this time including shortness of breath, chest pain, abdominal pain, nausea or vomiting, headache, or visual changes. - Related Data Home Medications Medication Instructions Recorded Confirmed Furosemide [Lasix] 20 mg PO DAILY 01/27/14 01/13/21 Warfarin [Coumadin] 2.5 mg PO MOFR 01/27/14 01/13/21 Ferocon Cap 1 cap PO DAILY 07/13/16 01/13/21 Warfarin [Coumadin] 1.25 mg PO SUTUWETHSA 07/13/16 01/13/21 Levothyroxine Sodium [Synthroid] 50 mcg PO DAILY 06/28/17 01/13/21 Atorvastatin [Lipitor] 20 mg PO HS 07/28/19 01/13/21 Folic Acid 1 mg PO DAILY 07/28/19 01/13/21 Amiodarone HCl [Pacerone] 100 mg PO DAILY 08/17/20 01/13/21 Loratadine 10 mg PO DAILY 08/17/20 01/13/21 Memantine [Namenda] 5 mg PO BID@0800,1200 08/17/20 01/13/21 Metoprolol Succinate [Toprol XL] 25 mg PO DAILY 08/17/20 01/13/21 Allergies Allergy/AdvReac Type Severity Reaction Status Date / Time No Known Allergies Allergy Verified 03/13/21 10:50 Review of Systems ROS Statement: Those systems with pertinent positive or pertinent negative responses have been documented in the HPI. ROS Other: All systems not noted in ROS Statement are negative. Past Medical History Past Medical History: Atrial Fibrillation, Coronary Artery Disease (CAD), Cancer, CVA/TIA, Hyperlipidemia, Hypertension, Neurologic Disorder, Osteoarthritis (OA), Prostate Disorder, Thyroid Disorder Additional Past Medical History / Comment(s): CAD , hypertension, A. fib, BPH, hyperlipidemia, vascular dementia, colon cancer, vitamin D deficiency, osteoarthritis. SKIN CANCER, COLON CANCER RECTAL BLEEDING History of Any Multi-Drug Resistant Organisms: None Reported Past Surgical History: Adenoidectomy, Bowel Resection, Hernia Repair, Tonsillectomy Additional Past Surgical History / Comment(s): COLONOSCOPY , BILATERAL CATARACT SURGERY Past Anesthesia/Blood Transfusion Reactions: No Reported Reaction Past Psychological History: Anxiety Smoking Status: Former smoker Past Alcohol Use History: None Reported Past Drug Use History: None Reported - Past Family History Father Family Medical History: Cancer, Myocardial Infarction ([place]) Additional Family Medical History / Comment(s): father in 60's Mother Family Medical History: No Reported History Brother(s) Family Medical History: Cancer Sister(s) Family Medical History: Cancer Daughter(s) Family Medical History: No Reported History Son(s) Family Medical History: No Reported History General Exam Limitations: no limitations General appearance: alert, in no apparent distress Head exam: Present: atraumatic Eye exam: Present: normal appearance, PERRL, EOMI. Absent: scleral icterus, conjunctival injection ENT exam: Present: normal exam, mucous membranes moist Neck exam: Present: normal inspection, full ROM. Absent: tenderness Respiratory exam: Present: normal lung sounds bilaterally, chest wall tenderness (Right-sided anterior chest wall tenderness without ecchymosis). Absent: respiratory distress, wheezes Cardiovascular Exam: Present: regular rate, normal rhythm, normal heart sounds GI/Abdominal exam: Present: soft, normal bowel sounds. Absent: distended, tenderness Course Vital Signs 03/13/21 03/13/21 03/13/21 10:46 11:50 12:00 Temperature 97.0 F L Pulse Rate 93 76 88 Respiratory 18 24 18 Rate Blood Pressure 149/78 136/74 147/85 O2 Sat by Pulse 95 96 95 Oximetry 03/13/21 03/13/21 12:21 13:00 Temperature Pulse Rate 68 Respiratory 24 24 Rate Blood Pressure 145/87 O2 Sat by Pulse 95 Oximetry EKG Findings - EKG Comments: EKG Findings:: Atrial fibrillation, ventricular rate 96, QRS duration 130, QTC 530 Medical Decision Making - Medical Decision Making Vitals are stable. Patient is well-appearing. Patient does have some right anterior rib tenderness. Laboratory evaluation is unremarkable. Urinalysis is normal. CT brain shows age-related atrophic and chronic small vessel ischemic change without acute cranial process. CT chest abdomen and pelvis doesn't show any obvious traumatic injury however there is finding of cavitary left upper lobe mass with satellite nodules as well as metaplastic disease to the liver. Findings are felt to reflect malignancy. I did discuss this with patient and his . I discussed inpatient versus outpatient management as well as possible rehabilitation. However at this time states she preferred to take patient home. States she has been caring for him for a long time and feels his new walker is much better for him. She wants to follow up with primary care outpatient. They are aware of the importance of this. They will return here for any worsening symptoms. - Lab Data Result diagrams: 03/13/21 11:21 03/13/21 11:21 Lab Results 03/13/21 03/13/21 03/13/21 Range/Units 11:21 11:21 11:21 WBC 5.6 (3.8-10.6) k/uL RBC 3.88 L (4.30-5.90) m/uL Hgb 12.4 L (13.0-17.5) gm/dL Hct 38.0 L (39.0-53.0) % MCV 97.9 (80.0-100.0) fL MCH 32.0 (25.0-35.0) pg MCHC 32.7 (31.0-37.0) g/dL RDW 14.5 (11.5-15.5) % Plt Count 185 (150-450) k/uL MPV 7.8 Neutrophils % 81 % Lymphocytes % 8 % Monocytes % 7 % Eosinophils % 2 % Basophils % 1 % Neutrophils # 4.6 (1.3-7.7) k/uL Lymphocytes # 0.4 L (1.0-4.8) k/uL Monocytes # 0.4 (0-1.0) k/uL Eosinophils # 0.1 (0-0.7) k/uL Basophils # 0.0 (0-0.2) k/uL PT 31.1 H (9.0-12.0) sec INR 3.2 H (<1.2) APTT 39.5 H (22.0-30.0) sec Sodium (137-145) mmol/L Potassium (3.5-5.1) mmol/L Chloride (98-107) mmol/L Carbon Dioxide (22-30) mmol/L Anion Gap mmol/L BUN (9-20) mg/dL Creatinine (0.66-1.25) mg/dL Est GFR (CKD-EPI)AfAm (>60 ml/min/1.73 sqM) Est GFR (CKD-EPI)NonAf (>60 ml/min/1.73 sqM) Glucose (74-99) mg/dL Calcium (8.4-10.2) mg/dL Magnesium (1.6-2.3) mg/dL Total Bilirubin (0.2-1.3) mg/dL AST (17-59) U/L ALT (4-49) U/L Alkaline Phosphatase (38-126) U/L Total Protein (6.3-8.2) g/dL Albumin (3.5-5.0) g/dL Urine Color Light Yellow Urine Appearance Clear (Clear) Urine pH 5.0 (5.0-8.0) Ur Specific [place] 1.024 (1.001-1.035) Urine Protein Negative (Negative) Urine Glucose (UA) Negative (Negative) Urine Ketones Negative (Negative) Urine Blood Negative (Negative) Urine Nitrite Negative (Negative) Urine Bilirubin Negative (Negative) Urine Urobilinogen <2.0 (<2.0) mg/dL Ur Leukocyte Esterase Negative (Negative) 03/13/21 Range/Units 11:21 WBC (3.8-10.6) k/uL RBC (4.30-5.90) m/uL Hgb (13.0-17.5) gm/dL Hct (39.0-53.0) % MCV (80.0-100.0) fL MCH (25.0-35.0) pg MCHC (31.0-37.0) g/dL RDW (11.5-15.5) % Plt Count (150-450) k/uL MPV Neutrophils % % Lymphocytes % % Monocytes % % Eosinophils % % Basophils % % Neutrophils # (1.3-7.7) k/uL Lymphocytes # (1.0-4.8) k/uL Monocytes # (0-1.0) k/uL Eosinophils # (0-0.7) k/uL Basophils # (0-0.2) k/uL PT (9.0-12.0) sec INR (<1.2) APTT (22.0-30.0) sec Sodium 142 (137-145) mmol/L Potassium 3.7 (3.5-5.1) mmol/L Chloride 112 H (98-107) mmol/L Carbon Dioxide 25 (22-30) mmol/L Anion Gap 5 mmol/L BUN 22 H (9-20) mg/dL Creatinine 1.11 (0.66-1.25) mg/dL Est GFR (CKD-EPI)AfAm 70 (>60 ml/min/1.73 sqM) Est GFR (CKD-EPI)NonAf 60 (>60 ml/min/1.73 sqM) Glucose 98 (74-99) mg/dL Calcium 8.4 (8.4-10.2) mg/dL Magnesium 1.9 (1.6-2.3) mg/dL Total Bilirubin 1.1 (0.2-1.3) mg/dL AST 54 (17-59) U/L ALT 51 H (4-49) U/L Alkaline Phosphatase 181 H (38-126) U/L Total Protein 5.9 L (6.3-8.2) g/dL Albumin 3.0 L (3.5-5.0) g/dL Urine Color Urine Appearance (Clear) Urine pH (5.0-8.0) Ur Specific [place] (1.001-1.035) Urine Protein (Negative) Urine Glucose (UA) (Negative) Urine Ketones (Negative) Urine Blood (Negative) Urine Nitrite (Negative) Urine Bilirubin (Negative) Urine Urobilinogen (<2.0) mg/dL Ur Leukocyte Esterase (Negative) Disposition Clinical Impression: Lesion of lung, Liver lesion Disposition: HOME SELF-CARE Condition: Fair Instructions (If sedation given, give patient instructions): Fall Prevention for Older Adults (ED) Additional Instructions: Please follow up with primary care regarding CAT scan findings. If patient has any worsening symptoms or you are concerned for patient's safety at home return to the emergency room. Is patient prescribed a controlled substance at d/c from ED?: No Referrals: Duc Keller MD [Primary Care Provider] - 1-2 days Time of Disposition: 15:09
[2021-03-13 11:44] LABS: Basophils % (A) 1 %; Eosinophils # (A) 0.1 k/uL (0-0.7); Eosinophils % (A) 2 %; HGB 12.4 gm/dL (13.0-17.5); Lymphocytes # (A) 0.4 k/uL (1.0-4.8); Lymphocytes % (A) 8 %; MCHC 32.7 g/dL (31.0-37.0); MCV 97.9 fL (80.0-100.0); Mean Platelet Volume 7.8; Monocytes # (A) 0.4 k/uL (0-1.0); Monocytes % (A) 7 %; Neutrophils # (A) 4.6 k/uL (1.3-7.7); Neutrophils % (A) 81 %; Platelet Count 185 k/uL (150-450); RBC 3.88 m/uL (4.30-5.90); RDW 14.5 % (11.5-15.5); WBC 5.6 k/uL (3.8-10.6)
[2021-03-13 11:49] LABS: Calcium 8.4 mg/dL (8.4-10.2); Magnesium 1.9 mg/dL (1.6-2.3); Potassium 3.7 mmol/L (3.5-5.1); Total Bilirubin 1.1 mg/dL (0.2-1.3); Total Protein 5.9 g/dL (6.3-8.2)
[2021-03-13 11:50] LABS: INR 3.2 (<1.2); Partial Thromboplastin Time 39.5 sec (22.0-30.0); Prothrombin Time 31.1 sec (9.0-12.0)
--- NOTE | 2021-03-13 13:06 | CT ---
EXAMINATION TYPE: CT brain wo con DATE OF EXAM: 03/13/2021 COMPARISON: 01/13/2021 HISTORY: frequent falls, Rt sided chest pain CT DLP: [address] of the brain was performed. The ventricles, basal cisterns and sulci overlying the cerebral convexities demonstrate mild enlargem ent. There is no evidence for intracranial hemorrhage or sulcal effacement. There is decreased attenuation about the periventricular white matter and deep white matter of both c erebral hemispheres, compatible with chronic small vessel ischemia. Differential diagnosis does inclu de demyelination. No mass effects are seen.No midline shift. Osseous calvarium is intact. If symptoms persist consider MRI. IMPRESSION: 1. Age related atrophic and chronic small vessel ischemic change without acute intracranial process s een at this time.
--- NOTE | 2021-03-13 13:19 | CT ---
EXAMINATION TYPE: CT ChestAbdPelvis w con DATE OF EXAM: 03/13/2021 COMPARISON: 08/17/2020 HISTORY: frequent falls, Rt sided chest pain CT DLP: 1144.2 mGycm CONTRAST: CT scan of the chest, abdomen and pelvis is performed without Oral Contrast and with IV Contrast, pat ient injected with 100 mL of Isovue 300. CT Chest: LUNGS: Pleural-based mass left upper lobe posteriorly measures 5.1 x 5.2 cm. Cavitation noted. Adjace nt satellite nodularity and postobstructive pneumonitis. Satellite nodule measures 1.6 cm. Additional nodularity left lower lobe. Parenchymal scarring right lung. Pleural-based calcifications identified . MEDIASTINUM: Thoracic aorta is of normal caliber. The heart is enlarged. No evidence for mediastin al mass or adenopathy. HILAR STRUCTURES: No evidence for mass. No hilar adenopathy is appreciated. OTHER: No significant abnormality. CONTRAST CT ABDOMEN AND PELVIS FINDINGS: LIVER/GB: No calcified gallstones. Mild gallbladder distention noted. Multiple hepatic lesions note d compatible with metastatic disease. Biliary tree is of normal caliber. PANCREAS: No inflammation. No distinct mass. SPLEEN: No splenic enlargement. Cystic splenic lesions are nonspecific. ADRENALS: No nodule. No thickening. KIDNEYS/BLADDER: No hydronephrosis. No nephrolithiasis. Renal cystic changes identified. Mild diste ntion urinary bladder. BOWEL: Normal appendix. Normal bowel caliber. No inflammation. GENITAL ORGANS: No gross abnormality. LYMPH NODES: No greater than 1cm abdominal or pelvic lymph nodes are appreciated. AORTA: No significant abnormality. OSSEOUS STRUCTURES: No significant abnormality is seen. OTHER: No significant additional abnormality is seen. IMPRESSION: 1. 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 Findings are felt to reflect malignancy until proven otherwise. 2. No obvious traumatic injury to the chest abdomen or pelvis.
[2021-03-13 14:55] LABS: Appearance,Urine Clear (Clear); Bilirubin,Urine Negative (Negative); Blood,Urine Negative (Negative); Color,Urine Light Yellow; Glucose,Urine (UA) Negative (Negative); Ketones,Urine Negative (Negative); Leukocyte Esterase,Urine Negative (Negative); Nitrite,Urine Negative (Negative); Protein,Urine Negative (Negative); Specific Gravity,Urine 1.024 (1.001-1.035); Urobilinogen,Urine <2.0 mg/dL (<2.0)
[2021-03-13 15:19] VITALS: RESP 20
[2021-03-13 15:20] VITALS: BP 140/77
[2021-03-13 15:31] VITALS: PULSE 77
== END 2021-03-13 15:29 | disposition home or self-care (01) ==
LOC: EC 10:36
DX: R91.1 Solitary pulmonary nodule (principal); K76.9 Liver disease, unspecified; R29.6 Repeated falls; I48.91 Unspecified atrial fibrillation; I25.10 Atherosclerotic heart disease of native coronary artery without angina pectoris; E78.5 Hyperlipidemia, unspecified; I10 Essential (primary) hypertension; M19.90 Unspecified osteoarthritis, unspecified site; E07.9 Disorder of thyroid, unspecified; F01.50 Vascular dementia, unspecified severity, without behavioral disturbance, psychotic disturbance, mood disturbance, and anxiety; F41.9 Anxiety disorder, unspecified; Z79.01 Long term (current) use of anticoagulants; Z86.73 Personal history of transient ischemic attack (TIA), and cerebral infarction without residual deficits; Z85.038 Personal history of other malignant neoplasm of large intestine; Z85.828 Personal history of other malignant neoplasm of skin; Z90.89 Acquired absence of other organs; Z87.891 Personal history of nicotine dependence
CPT/HCPCS: 99285; 96374; 36415; 93005; 80053; 83735; 85025; 85610; 85730; 81003; 70450; 71260; 74177; J2270; Q9967

== ENCOUNTER 2021-03-21 14:31 | Emergency (ER) | payer MEDICARE ==
[2021-03-21 14:41] VITALS: RESP 18
--- NOTE | 2021-03-21 15:11 | ED ---
General Adult HPI - General Chief complaint: Fall Stated complaint: Fall, head injury Time Seen by Provider: 03/21/21 14:51 Source: patient, family, EMS, RN notes reviewed Mode of arrival: EMS Limitations: altered mental status - History of Present Illness Initial comments: Patient is a pleasant 85-year-old male presenting to the emergency department fo llowing a fall. Patient states he got up today on his own when usually he has helped. Patient states he does frequently fall around once a week as he did today. No loss of consciousness. Patient did strike the back of his head and did have some bleeding. No significant headache. No other area of injury or concern. - Related Data Home Medications Medication Instructions Recorded Confirmed Furosemide [Lasix] 20 mg PO DAILY 01/27/14 03/13/21 Warfarin [Coumadin] 2.5 mg PO SUTUWETHSA@1645 01/27/14 03/13/21 Ferocon Cap 1 cap PO DAILY 07/13/16 03/13/21 Warfarin [Coumadin] 3.75 mg PO MOFR@1645 07/13/16 03/13/21 Levothyroxine Sodium [Synthroid] 50 mcg PO DAILY 06/28/17 03/13/21 Atorvastatin [Lipitor] 20 mg PO HS 07/28/19 03/13/21 Folic Acid 1 mg PO DAILY 07/28/19 03/13/21 Amiodarone HCl [Pacerone] 100 mg PO DAILY 08/17/20 03/13/21 Loratadine 10 mg PO DAILY 08/17/20 03/13/21 Memantine [Namenda] 5 mg PO BID 08/17/20 03/13/21 Metoprolol Succinate [Toprol XL] 25 mg PO DAILY 08/17/20 03/13/21 ALPRAZolam [Xanax] 0.25 mg PO TID PRN 03/13/21 03/13/21 Allergies Allergy/AdvReac Type Severity Reaction Status Date / Time No Known Allergies Allergy Verified 03/21/21 14:41 Review of Systems ROS Statement: Those systems with pertinent positive or pertinent negative responses have been documented in the HPI. ROS Other: All systems not noted in ROS Statement are negative. Constitutional: Denies: fever Eyes: Denies: eye pain ENT: Denies: ear pain Respiratory: Denies: cough Cardiovascular: Denies: chest pain Endocrine: Denies: fatigue Gastrointestinal: Denies: abdominal pain Genitourinary: Denies: dysuria Musculoskeletal: Denies: back pain Skin: Reports: as per HPI. Denies: rash Neurological: Reports: as per HPI Past Medical History Past Medical History: Atrial Fibrillation, Coronary Artery Disease (CAD), Cancer, CVA/TIA, Dementia, Hyperlipidemia, Hypertension, Neurologic Disorder, Osteoarthritis (OA), Prostate Disorder, Thyroid Disorder Additional Past Medical History / Comment(s): CAD , hypertension, A. fib, BPH, hyperlipidemia, vascular dementia, colon cancer, vitamin D deficiency, osteoarthritis. SKIN CANCER, COLON CANCER RECTAL BLEEDING History of Any Multi-Drug Resistant Organisms: None Reported Past Surgical History: Adenoidectomy, Bowel Resection, Hernia Repair, Tonsillectomy Additional Past Surgical History / Comment(s): COLONOSCOPY , BILATERAL CATARACT SURGERY Past Anesthesia/Blood Transfusion Reactions: No Reported Reaction Past Psychological History: Anxiety Smoking Status: Former smoker Past Alcohol Use History: None Reported Past Drug Use History: None Reported - Past Family History Father Family Medical History: Cancer, Myocardial Infarction ([place]) Additional Family Medical History / Comment(s): father in 60's Mother Family Medical History: No Reported History Brother(s) Family Medical History: Cancer Sister(s) Family Medical History: Cancer Daughter(s) Family Medical History: No Reported History Son(s) Family Medical History: No Reported History General Exam Limitations: altered mental status General appearance: alert, in no apparent distress Head exam: Present: other (Posterior scalp laceration) Eye exam: Present: normal appearance, PERRL, EOMI. Absent: nystagmus ENT exam: Present: normal oropharynx Neck exam: Present: normal inspection. Absent: tenderness Respiratory exam: Present: normal lung sounds bilaterally Cardiovascular Exam: Present: regular rate, normal rhythm GI/Abdominal exam: Present: soft. Absent: tenderness Extremities exam: Present: normal inspection, full ROM. Absent: tenderness Neurological exam: Present: alert, oriented X3, CN II-XII intact. Absent: motor sensory deficit Expanded Neurological exam: Present: protecting the airway Patient oriented to: Present: person, place, time Speech: Present: fluid speech Cranial nerves: EOM's Intact: Normal Sensory exam: Upper Extremity Light Touch: Normal, Lower Extremity Light Touch: Normal Motor strength exam: RUE: 5, LUE: 5, RLE: 5, LLE: 5 Eye Response: (4) open spontaneously Motor Response: (6) obeys commands Verbal Response: (5) oriented Psychiatric exam: Present: normal affect, normal mood Skin exam: Present: normal color Course Vital Signs 03/21/21 14:33 Temperature 98.1 F Pulse Rate 81 Respiratory 18 Rate Blood Pressure 128/100 O2 Sat by Pulse 96 Oximetry Procedures - Laceration Laceration #1 Consent Obtained: verbal consent Indication: laceration Site: scalp Description: linear Depth: simple, single layer Pre-repair: wound explored, irrigated extensively Type of Sutures: other (mathew) Number of Sutures: 13 Technique: simple, interrupted Patient Tolerated Procedure: well, no complications Medical Decision Making - Medical Decision Making Patient reevaluated and resting comfortably in bed. Patient updated on results and need for follow-up. - Radiology Data Radiology results: report reviewed (Computed tomography scan brain and cervical spine shows no acute process. Left upper lobe lung lesion.) Disposition Clinical Impression: Fall, Laceration of scalp Disposition: HOME SELF-CARE Condition: Stable Instructions (If sedation given, give patient instructions): Fall Prevention (ED), Head Injury (ED) Additional Instructions: Hold blood thinners for at least 24 hours. Please do follow-up with Dr. Keller in the next day or [address] Keller review CT results as you'll need additional testing. Staple removal in approximately 10 days. Twice daily wash area with soap and water, apply antibiotic ointment, and keep bandaged. Return for change in mental status, confusion, vomiting, weakness, worsening symptoms or other concerns. Is patient prescribed a controlled substance at d/c from ED?: No Referrals: Duc Keller MD [Primary Care Provider] - 1-2 days Time of Disposition: 16:35
--- NOTE | 2021-03-21 16:19 | CT ---
EXAMINATION TYPE: CT brain cspine wo con DATE OF EXAM: 03/21/2021 COMPARISON: Prior exam CT brain 03/13/2021, and CT cervical spine 03/05/2010 HISTORY: Fall. Posterior head injury. CT DLP: 1377 mGycm Automated exposure control for dose reduction was used. TECHNIQUE: CT scan of the head and cervical spine are performed without contrast. FINDINGS: There is no acute intracranial hemorrhage, mass effect, or midline shift identified. The ventricles and sulci are within normal limits in size. Periventricular white matter shows patchy low attenuation as on prior exam, this cortical atrophy. Surgical mathew are present at the upper scalp . There is cerebral vascular calcifications present. The globes are intact and the visualized sinuses are markable for inflammatory change in the left sphenoid sinus. Cervical spine is visualized in its entirety from C1 through upper thoracic levels and demonstrates t able alignment without evidence of acute fracture or dislocation. There is multilevel spondylosis, lo ss of disc height is greatest at C3-4, C5-6 with minimal prostheses, retrolisthesis grade 1 C3-C4, an terolisthesis grade 1 C5-6. There is multilevel foraminal encroachment due to uncovertebral joint hyp ertrophy and facet arthropathy change. Prevertebral soft tissue appears within normal limits. The C 1-C2 articulation is unremarkable. At the left lung apex shows a cavitary lesion with spiculated mar gins extending to the pleural surface measuring 6 cm, probable associated daughter lesion present imm ediately medial to the first lesion measuring 8 mm. 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 Upper lung emphysematous edgard nges are present. IMPRESSION: 1. There is no acute fracture or dislocation evident in the cervical spine. 2. No acute intracranial hemorrhage, mass effect, or midline shift is seen. 3. Demonstrated a mass in the left upper lobe is again noted as on prior CT aerated sphenoid sinus di sease. Degenerative disc disease and facet arthropathy, age-related changes of atrophy and chronic sm all vessel ischemia.
[2021-03-21 16:37] VITALS: BP 124/86; PULSE 82; TEMP 98.2
== END 2021-03-21 17:00 | disposition home or self-care (01) ==
LOC: EC 14:31
DX: S01.01XA Laceration without foreign body of scalp, initial encounter (principal); I48.91 Unspecified atrial fibrillation; I25.10 Atherosclerotic heart disease of native coronary artery without angina pectoris; F03.90 Unspecified dementia, unspecified severity, without behavioral disturbance, psychotic disturbance, mood disturbance, and anxiety; E78.5 Hyperlipidemia, unspecified; I10 Essential (primary) hypertension; M19.90 Unspecified osteoarthritis, unspecified site; E07.9 Disorder of thyroid, unspecified; F41.9 Anxiety disorder, unspecified; Z79.01 Long term (current) use of anticoagulants; Z86.73 Personal history of transient ischemic attack (TIA), and cerebral infarction without residual deficits; Z85.038 Personal history of other malignant neoplasm of large intestine; Z85.828 Personal history of other malignant neoplasm of skin; Z90.89 Acquired absence of other organs; Z87.891 Personal history of nicotine dependence; W01.10XA Fall on same level from slipping, tripping and stumbling with subsequent striking against unspecified object, initial encounter
CPT/HCPCS: 12001; 70450; 72125; 99283

== ENCOUNTER 2021-03-24 03:36 | Inpatient (IN) | payer MEDICARE ==
--- NOTE | 2021-03-24 04:13 | ED ---
Fall HPI - General Source: patient, EMS Mode of arrival: EMS - History of Present Illness MD Complaint: fall -: minutes(s) Fall From: standing When Fall Occurred: just prior to arrival Place Fall Occurred: home Loss of Consciousness: none Prolonged Down Time?: no Location: head Severity scale (1-10): 0 Context: history of frequent falls Associated Symptoms: denies <Jason Abraham - Last Filed: 03/24/21 04:31> - General Source: RN notes reviewed, old records reviewed Limitations: no limitations <Victor Hugo Baker - Last Filed: 03/25/21 06:10> - General Chief Complaint: Fall Stated Complaint: Fall Time Seen by Provider: 03/24/21 03:48 - History of Present Illness Initial Comments: This is an 85-year-old male to the emergency department status post falls as a trip and fall on anticoagulation. Patient's brought in DF for evaluation. History obtained from EMS as well as the patient. (Victor Hugo Baker) - Related Data Home Medications Medication Instructions Recorded Confirmed Furosemide [Lasix] 20 mg PO DAILY 01/27/14 03/24/21 Warfarin [Coumadin] 2.5 mg PO SUTUWETHSA@1645 01/27/14 03/24/21 Ferocon Cap 1 cap PO DAILY 07/13/16 03/24/21 Warfarin [Coumadin] 3.75 mg PO MOFR@1645 07/13/16 03/24/21 Levothyroxine Sodium [Synthroid] 50 mcg PO DAILY 06/28/17 03/24/21 Atorvastatin [Lipitor] 20 mg PO HS 07/28/19 03/24/21 Folic Acid 1 mg PO DAILY 07/28/19 03/24/21 Amiodarone HCl [Pacerone] 100 mg PO DAILY 08/17/20 03/24/21 Loratadine 10 mg PO DAILY 08/17/20 03/24/21 Memantine [Namenda] 5 mg PO BID 08/17/20 03/24/21 Metoprolol Succinate [Toprol XL] 25 mg PO DAILY 08/17/20 03/24/21 ALPRAZolam [Xanax] 0.25 mg PO TID PRN 03/13/21 03/24/21 Allergies Allergy/AdvReac Type Severity Reaction Status Date / Time No Known Allergies Allergy Verified 03/24/21 08:58 Review of Systems ROS Other: All systems not noted in ROS Statement are negative. <Jason Abraham - Last Filed: 03/24/21 04:31> ROS Other: All systems not noted in ROS Statement are negative. <Victor Hugo Baker - Last Filed: 03/25/21 06:10> ROS Statement: Those systems with pertinent positive or pertinent negative responses have been documented in the HPI. Past Medical History Past Medical History: Atrial Fibrillation, Coronary Artery Disease (CAD), Cancer, CVA/TIA, Dementia, Hyperlipidemia, Hypertension, Neurologic Disorder, Osteoarthritis (OA), Prostate Disorder, Thyroid Disorder Additional Past Medical History / Comment(s): CAD , hypertension, A. fib, BPH, hyperlipidemia, vascular dementia, colon cancer, vitamin D deficiency, osteoarthritis. SKIN CANCER, COLON CANCER RECTAL BLEEDING History of Any Multi-Drug Resistant Organisms: None Reported Past Surgical History: Adenoidectomy, Bowel Resection, Hernia Repair, Tons illectomy Additional Past Surgical History / Comment(s): COLONOSCOPY , BILATERAL CATARACT SURGERY Past Anesthesia/Blood Transfusion Reactions: No Reported Reaction Past Psychological History: Anxiety Smoking Status: Former smoker Past Alcohol Use History: None Reported Past Drug Use History: None Reported - Past Family History Father Family Medical History: Cancer, Myocardial Infarction ([place]) Additional Family Medical History / Comment(s): father in 60's Mother Family Medical History: No Reported History Brother(s) Family Medical History: Cancer Sister(s) Family Medical History: Cancer Daughter(s) Family Medical History: No Reported History Son(s) Family Medical History: No Reported History <Jason Abraham - Last Filed: 03/24/21 04:31> General Exam Limitations: no limitations <Jason Abraham - Last Filed: 03/24/21 04:31> Course <Victor Hugo Baker - Last Filed: 03/25/21 06:10> Vital Signs 03/24/21 03/24/21 03/24/21 03:48 06:38 06:48 Temperature 97.6 F Pulse Rate 98 96 92 Respiratory 18 Rate Blood Pressure 136/75 O2 Sat by Pulse 98 Oximetry 03/24/21 03/24/21 03/24/21 06:54 07:24 11:24 Temperature Pulse Rate 81 82 84 Respiratory 18 18 Rate Blood Pressure 158/77 136/77 132/70 O2 Sat by Pulse 98 99 Oximetry 03/24/21 03/24/21 19:12 21:40 Temperature 98.0 F Pulse Rate 91 Respiratory 20 20 Rate Blood Pressure 150/79 143/92 O2 Sat by Pulse 93 L 98 Oximetry - Reevaluation(s) Reevaluation #1: Medical record is reviewed Patient symptoms are significantly improved Patient family informed results questions answered (Victor Hugo Baker) - Consultations Consultation #1: (Dr. Keller who agrees to admit this patient (Victor Hugo Baker) Medical Decision Making - EKG Data -: EKG Interpreted by De EKG shows normal: sinus rhythm (With PAC), axis (Normal), intervals (QTc 46 ms, prolonged.), QRS complexes (Normal) Rate: normal (Rate 77 bpm) Interpretation: nonspecific ST-T wave changes <Jason Abraham - Last Filed: 03/24/21 04:31> - Lab Data Result diagrams: 03/24/21 04:23 03/24/21 04:23 - Radiology Data Radiology results: report reviewed (CT brain C-spine chest and pelvis x-ray are negative for traumatic injury there is evidence of possible pneumonia versus mass), image reviewed <Victor Hugo Baker - Last Filed: 03/25/21 06:10> - Medical Decision Making 85 male status post fall with a trip and fall on anticoagulation, no traumatic injuries is follow-up patient will be admitted for placement secondary to a s ignificant amount of recent falls (Victor Hugo Baker) - Lab Data Lab Results 03/24/21 03/24/21 03/24/21 Range/Units 04:23 04:23 04:23 WBC 6.5 (3.8-10.6) k/uL RBC 3.72 L (4.30-5.90) m/uL Hgb 12.1 L (13.0-17.5) gm/dL Hct 37.3 L (39.0-53.0) % MCV 100.2 H (80.0-100.0) fL MCH 32.5 (25.0-35.0) pg MCHC 32.4 (31.0-37.0) g/dL RDW 14.5 (11.5-15.5) % Plt Count 220 (150-450) k/uL MPV 8.1 Neutrophils % 84 % Lymphocytes % 8 % Monocytes % 6 % Eosinophils % 0 % Basophils % 0 % Neutrophils # 5.4 (1.3-7.7) k/uL Lymphocytes # 0.5 L (1.0-4.8) k/uL Monocytes # 0.4 (0-1.0) k/uL Eosinophils # 0.0 (0-0.7) k/uL Basophils # 0.0 (0-0.2) k/uL Macrocytosis Slight PT (9.0-12.0) sec INR (<1.2) APTT (22.0-30.0) sec Sodium 140 (137-145) mmol/L Potassium 3.7 (3.5-5.1) mmol/L Chloride 108 H (98-107) mmol/L Carbon Dioxide 25 (22-30) mmol/L Anion Gap 7 mmol/L BUN 33 H (9-20) mg/dL Creatinine 1.36 H (0.66-1.25) mg/dL Est GFR (CKD-EPI)AfAm 55 (>60 ml/min/1.73 sqM) Est GFR (CKD-EPI)NonAf 47 (>60 ml/min/1.73 sqM) Glucose 106 H (74-99) mg/dL Lactic Ac Sepsis Rflx Plasma Lactic Acid Warren 2.1 H* (0.7-2.0) mmol/L Calcium 9.0 (8.4-10.2) mg/dL Total Bilirubin 1.7 H (0.2-1.3) mg/dL AST 86 H (17-59) U/L ALT 74 H (4-49) U/L Alkaline Phosphatase 251 H (38-126) U/L Troponin I (0.000-0.034) ng/mL Total Protein 5.8 L (6.3-8.2) g/dL Albumin 2.8 L (3.5-5.0) g/dL Serum Alcohol <10 mg/dL Blood Type Blood Type Recheck Bld Type Recheck Status Antibody Screen Spec Expiration Date 03/24/21 03/24/21 03/24/21 Range/Units 04:23 04:23 04:50 WBC (3.8-10.6) k/uL RBC (4.30-5.90) m/uL Hgb (13.0-17.5) gm/dL Hct (39.0-53.0) % MCV (80.0-100.0) fL MCH (25.0-35.0) pg MCHC (31.0-37.0) g/dL RDW (11.5-15.5) % Plt Count (150-450) k/uL MPV Neutrophils % % Lymphocytes % % Monocytes % % Eosinophils % % Basophils % % Neutrophils # (1.3-7.7) k/uL Lymphocytes # (1.0-4.8) k/uL Monocytes # (0-1.0) k/uL Eosinophils # (0-0.7) k/uL Basophils # (0-0.2) k/uL Macrocytosis PT (9.0-12.0) sec INR (<1.2) APTT (22.0-30.0) sec Sodium (137-145) mmol/L Potassium (3.5-5.1) mmol/L Chloride (98-107) mmol/L Carbon Dioxide (22-30) mmol/L Anion Gap mmol/L BUN (9-20) mg/dL Creatinine (0.66-1.25) mg/dL Est GFR (CKD-EPI)AfAm (>60 ml/min/1.73 sqM) Est GFR (CKD-EPI)NonAf (>60 ml/min/1.73 sqM) Glucose (74-99) mg/dL Lactic Ac Sepsis Rflx Y Plasma Lactic Acid Warren (0.7-2.0) mmol/L Calcium (8.4-10.2) mg/dL Total Bilirubin (0.2-1.3) mg/dL AST (17-59) U/L ALT (4-49) U/L Alkaline Phosphatase (38-126) U/L Troponin I <0.012 (0.000-0.034) ng/mL Total Protein (6.3-8.2) g/dL Albumin (3.5-5.0) g/dL Serum Alcohol mg/dL Blood Type A Positive Blood Type Recheck A Pos Bld Type Recheck Status No Antibody Screen NEGATIVE Spec Expiration Date 03/27/2021 - 232203/24/21 Range/Units 05:05 WBC (3.8-10.6) k/uL RBC (4.30-5.90) m/uL Hgb (13.0-17.5) gm/dL Hct (39.0-53.0) % MCV (80.0-100.0) fL MCH (25.0-35.0) pg MCHC (31.0-37.0) g/dL RDW (11.5-15.5) % Plt Count (150-450) k/uL MPV Neutrophils % % Lymphocytes % % Monocytes % % Eosinophils % % Basophils % % Neutrophils # (1.3-7.7) k/uL Lymphocytes # (1.0-4.8) k/uL Monocytes # (0-1.0) k/uL Eosinophils # (0-0.7) k/uL Basophils # (0-0.2) k/uL Macrocytosis PT 69.7 H (9.0-12.0) sec INR 7.2 H* (<1.2) APTT 37.1 H (22.0-30.0) sec Sodium (137-145) mmol/L Potassium (3.5-5.1) mmol/L Chloride (98-107) mmol/L Carbon Dioxide (22-30) mmol/L Anion Gap mmol/L BUN (9-20) mg/dL Creatinine (0.66-1.25) mg/dL Est GFR (CKD-EPI)AfAm (>60 ml/min/1.73 sqM) Est GFR (CKD-EPI)NonAf (>60 ml/min/1.73 sqM) Glucose (74-99) mg/dL Lactic Ac Sepsis Rflx Plasma Lactic Acid Warren (0.7-2.0) mmol/L Calcium (8.4-10.2) mg/dL Total Bilirubin (0.2-1.3) mg/dL AST (17-59) U/L ALT (4-49) U/L Alkaline Phosphatase (38-126) U/L Troponin I (0.000-0.034) ng/mL Total Protein (6.3-8.2) g/dL Albumin (3.5-5.0) g/dL Serum Alcohol mg/dL Blood Type Blood Type Recheck Bld Type Recheck Status Antibody Screen Spec Expiration Date Disposition <Jason Abraham - Last Filed: 03/24/21 04:31> Is patient prescribed a controlled substance at d/c from ED?: No <Victor Hugo Baker - Last Filed: 03/25/21 06:10> Clinical Impression: Fall, Palpitations, COPD (chronic obstructive pulmonary disease), Pneumonia, Weakness, Coagulopathy, Transaminitis Disposition: ADMITTED IP TO THIS HOSP Condition: Fair
[2021-03-24 04:36] LABS: Basophils % (A) 0 %; Eosinophils % (A) 0 %; HCT 37.3 % (39.0-53.0); HGB 12.1 gm/dL (13.0-17.5); Lymphocytes # (A) 0.5 k/uL (1.0-4.8); Lymphocytes % (A) 8 %; MCH 32.5 pg (25.0-35.0); MCHC 32.4 g/dL (31.0-37.0); MCV 100.2 fL (80.0-100.0); Macrocytosis Slight; Mean Platelet Volume 8.1; Monocytes # (A) 0.4 k/uL (0-1.0); Monocytes % (A) 6 %; Neutrophils # (A) 5.4 k/uL (1.3-7.7); Neutrophils % (A) 84 %; Platelet Count 220 k/uL (150-450); RBC 3.72 m/uL (4.30-5.90); RDW 14.5 % (11.5-15.5); WBC 6.5 k/uL (3.8-10.6)
[2021-03-24 04:47] LABS: ALT 74 U/L (4-49); AST 86 U/L (17-59); African American GFR (CKD) 55 (>60 ml/min/1.73 sqM); Albumin 2.8 g/dL (3.5-5.0); Alcohol <10 mg/dL; Alkaline Phosphatase 251 U/L (38-126); Anion Gap 7 mmol/L; Blood Urea Nitrogen 33 mg/dL (9-20); Carbon Dioxide 25 mmol/L (22-30); Chloride 108 mmol/L (98-107); Glucose 106 mg/dL (74-99); Non-African American GFR(CKD) 47 (>60 ml/min/1.73 sqM); Potassium 3.7 mmol/L (3.5-5.1); Sodium 140 mmol/L (137-145); Total Bilirubin 1.7 mg/dL (0.2-1.3); Total Protein 5.8 g/dL (6.3-8.2)
--- NOTE | 2021-03-24 04:53 | CT ---
EXAMINATION TYPE: CT brain caroline wo con DATE OF EXAM: 03/24/2021 COMPARISON: 03/21/2021 HISTORY: Fall CT DLP: 1330.3 mGycm Automated exposure control for dose reduction was used. Images of the brain and cervical spine without contrast. There is cerebral atrophy. There is no mass effect nor midline shift. There is no sign of intracrania l hemorrhage. There is patchy hypodensity in the periventricular white matter. The calvarium is intac t. Skull base is intact. There is some mucosal thickening in the sphenoid sinus. Cervical vertebra have normal alignment. There is some degenerative disc space narrowing at C3-4 and C5-6. Posterior elements are intact. There is no compression fracture. IMPRESSION: Spondylotic changes in the cervical spine. No fracture. Cerebral atrophy and chronic small vessel ischemia. No acute intracranial abnormality. No change comp ared to recent exam.
--- NOTE | 2021-03-24 04:55 | XR ---
EXAMINATION TYPE: XR pelvis AP view DATE OF EXAM: 03/24/2021 COMPARISON: 06/21/2020 HISTORY: Trauma. Pain TECHNIQUE: Single view FINDINGS: Pelvic ring is intact. Proximal femurs are intact. Sacroiliac joints are intact. There is v ascular calcification. There are phleboliths in the pelvis. There is no evidence of a fracture. IMPRESSION: No acute abnormality the pelvis. No change.
--- NOTE | 2021-03-24 05:00 | XR ---
EXAMINATION TYPE: XR chest 1V portable DATE OF EXAM: 03/24/2021 COMPARISON: 08/17/2020 HISTORY: Trauma. Chest pain. TECHNIQUE: Single view FINDINGS: Heart appears slightly enlarged. There is patchy bilateral pulmonary airspace infiltrates. There are chest leads. There is coarse interstitial density. There is some blunting of the costophren ic angles. There is some calcified pleural plaque on the left side chest wall. IMPRESSION: Patchy bilateral pneumonia which is probably increased compared to last exam. No obvious heart failure. Mild pleural reaction left lung base without much change.
[2021-03-24 05:38] LABS: Partial Thromboplastin Time 37.1 sec (22.0-30.0); Prothrombin Time 69.7 sec (9.0-12.0)
[2021-03-24 05:45] LABS: INR 7.2 (<1.2)
[2021-03-24] MEDS ORDERED: MORPHINE SULFATE 4 MG/ML SYRINGE IV PRN (06:15)
[2021-03-24] MEDS ORDERED: IPRATROPIUM-ALBUTEROL 3 ML NEB INHALATION STA (06:15)
[2021-03-24] MEDS ORDERED: AZITHROMYCIN 500 MG in SODIUM CHLORIDE 0.9% 250 ML IVPB STA (06:15)
[2021-03-24] MEDS ORDERED: IPRATROPIUM-ALBUTEROL 3 ML NEB INHALATION PRN (06:15)
[2021-03-24] MEDS ORDERED: NALOXONE 0.4 MG/ML 1 ML VIAL IV PRN (06:15)
[2021-03-24] MEDS ORDERED: ONDANSETRON 4 MG/2 ML VIAL IVP PRN (06:15)
[2021-03-24] MEDS: DEXTROSE 5%-0.45% NACL 1,000 ML IV SCH ×2 (06:41→21:52)
[2021-03-24] MEDS ORDERED: PHYTONADIONE ORAL 5 MG/5 ML ORAL.SYRG PO STA ×2 (10:09→18:53)
[2021-03-24] MEDS ORDERED: MEMANTINE 10 MG TAB PO SCH (10:30)
[2021-03-24] MEDS: MEMANTINE 5 MG TAB PO SCH ×2 (12:43→22:45)
[2021-03-24] MEDS: LORATADINE 10 MG TAB PO SCH (12:43)
[2021-03-24] MEDS: LEVOTHYROXINE 50 MCG TAB PO SCH (12:43)
[2021-03-24] MEDS: PANTOPRAZOLE 40 MG/10 ML VIAL IVP SCH (12:43)
[2021-03-24] MEDS: METOPROLOL SUCCINATE (ER) 25 MG TAB.ER.24H PO SCH (12:43)
[2021-03-24 17:53] LABS: INR 6.4 (<1.2); Prothrombin Time 61.6 sec (9.0-12.0)
[2021-03-25] MEDS: LEVOTHYROXINE 50 MCG TAB PO SCH (06:02)
[2021-03-25] MEDS: DEXTROSE 5%-0.45% NACL 1,000 ML IV SCH (08:39)
[2021-03-25] MEDS: AZITHROMYCIN 500 MG in SODIUM CHLORIDE 0.9% 250 ML IVPB SCH (08:39)
[2021-03-25 09:59] LABS: Basophils # (A) 0.02 X 10*3/uL (0.00-0.10); Basophils % (A) 0.3 %; Eosinophils # (A) 0.01 X 10*3/uL (0.04-0.35); Eosinophils % (A) 0.1 %; HCT 33.2 % (39.6-50.0); HGB 10.4 g/dL (13.0-17.0); Lymphocytes # (A) 0.49 X 10*3/uL (0.90-5.00); Lymphocytes % (A) 6.4 %; MCH 32.5 pg (27.0-32.0); MCHC 31.3 g/dL (32.0-37.0); MCV 103.8 fL (80.0-97.0); Monocytes # (A) 0.88 X 10*3/uL (0.20-1.00); Monocytes % (A) 11.6 %; Neutrophils # (A) 6.15 X 10*3/uL (1.80-7.70); Neutrophils % (A) 80.9 %; Platelet Count 212 X 10*3/uL (140-440); RDW 14.8 % (11.5-14.5)
--- NOTE | 2021-03-25 10:14 | P.HPIM ---
History of Present Illness H&P Date: 03/24/21 Chief Complaint: increasing weakness,falls this is an 85-year-old gentleman with past medical history of coronary artery disease, status post myocardial infarction about 20 years ago, hypertension and hypertensive perivascular disease, atrial fibrillation, BPH, hyperlipidemia, vascular dementia, vitamin D deficiency, brought to the ER via EMS, status post fall, in a patient on anticoagulation. Reports he slipped. Denies loss of consciousness. Denies lightheadedness, dizziness or focal deficits. Apparently patient fell last week, sustained a scalp laceration ,13 mathew present. No family currently at bedside. Head/C-spine reported no fracture, spondylitic changes of the cervical spine, no acute intracranial abnormality, cerebral atrophy and chronic small vessel ischemia, no change compared to recent exam. Chest x-ray reported patchy bilateral pneumonia, probably increased compared to prior exam. Zithromax initiated in the ER. Maintaining O2 sats in the high 90s on room air. Afebrile, normal WBC EKG sinus rhythm with PACs with apparent conduction, troponin negative 1. Denies chest pain, palpitations or shortness of breath. Hemoglobin 12.1, MCV 100.2, platelets 220, INR 7.2 with vitamin K administered. Sodium 140, potassium 3.7, chloride 108, bicarb 25, BUN 33, creatinine 1.36-Baseline 1.1, glucose 106, lactic acid 3.9, T bili 1.7, AST 86, ALT 74, alk phos 251, albumin 2.8, serum alcohol less than 10, coronavirus not detected. Review of Systems ROS Statement: Those systems with pertinent positive or pertinent negative responses have been documented in the HPI. ROS Other: All systems not noted in ROS Statement are negative. Past Medical History Past Medical History: Atrial Fibrillation, Coronary Artery Disease (CAD), Cancer, CVA/TIA, Dementia, Hyperlipidemia, Hypertension, Neurologic Disorder, Osteoarthritis (OA), Prostate Disorder, Thyroid Disorder Additional Past Medical History / Comment(s): CAD , hypertension, A. fib, BPH, hyperlipidemia, vascular dementia, colon cancer, vitamin D deficiency, osteoa rthritis. SKIN CANCER, COLON CANCER RECTAL BLEEDING History of Any Multi-Drug Resistant Organisms: None Reported Past Surgical History: Adenoidectomy, Bowel Resection, Hernia Repair, Tonsillectomy Additional Past Surgical History / Comment(s): COLONOSCOPY , BILATERAL CATARACT SURGERY Past Anesthesia/Blood Transfusion Reactions: No Reported Reaction Past Psychological History: Anxiety Smoking Status: Former smoker Past Alcohol Use History: None Reported Past Drug Use History: None Reported - Past Family History Father Family Medical History: Cancer, Myocardial Infarction ([place]) Additional Family Medical History / Comment(s): father in 60's Mother Family Medical History: No Reported History Brother(s) Family Medical History: Cancer Sister(s) Family Medical History: Cancer Daughter(s) Family Medical History: No Reported History Son(s) Family Medical History: No Reported History Medications and Allergies Home Medications Medication Instructions Recorded Confirmed Type Furosemide [Lasix] 20 mg PO DAILY 01/27/14 03/24/21 History Warfarin [Coumadin] 2.5 mg PO SUTUWETHSA@1645 01/27/14 03/24/21 History Ferocon Cap 1 cap PO DAILY 07/13/16 03/24/21 History Warfarin [Coumadin] 3.75 mg PO MOFR@1645 07/13/16 03/24/21 History Levothyroxine Sodium [Synthroid] 50 mcg PO DAILY 06/28/17 03/24/21 History Atorvastatin [Lipitor] 20 mg PO HS 07/28/19 03/24/21 History Folic Acid 1 mg PO DAILY 07/28/19 03/24/21 History Amiodarone HCl [Pacerone] 100 mg PO DAILY 08/17/20 03/24/21 History Loratadine 10 mg PO DAILY 08/17/20 03/24/21 History Memantine [Namenda] 5 mg PO BID 08/17/20 03/24/21 History Metoprolol Succinate [Toprol XL] 25 mg PO DAILY 08/17/20 03/24/21 History ALPRAZolam [Xanax] 0.25 mg PO TID PRN 03/13/21 03/24/21 History Allergies Allergy/AdvReac Type Severity Reaction Status Date / Time No Known Allergies Allergy Verified 03/24/21 08:58 Physical Exam Vitals: Vital Signs Temp Pulse Resp BP Pulse Ox 03/24/21 11:24 84 18 132/70 03/24/21 07:24 82 136/77 99 03/24/21 06:54 81 18 158/77 98 03/24/21 06:38 96 03/24/21 03:48 97.6 F 98 18 136/75 98 Intake and Output 03/24/21 03/24/21 03/24/21 06:59 14:59 22:59 Other: Weight 72.121 kg GENERAL: Pt awake and alert,restless,NAD HEAD: normocephalic.scalp with mathew from prior fall sustaining laceration- well approximated. EYES: Pupils equal and round. Sclera anicteric, conjunctiva are normal. ENT: Moist mucous membranes. NECK:Supple, no JVD. LUNGS: Breath sounds clear to auscultation bilaterally. No wheezes, rales, or rhonchi. HEART: Heart S1, S2, no S3 or S4. Regular rate and rhythm. Systolic murmur. ABDOMEN: Soft, nontender, nondistended, normoactive bowel sounds. No guarding, no rebound. No masses or organomegaly appreciated. EXTREMITIES: 2+ peripheral pulses. No edema. No calf tenderness. NEUROLOGICAL: Pt oriented x 3. Cranial nerves II through XII grossly intact. Strength and sensation grossly intact. PSYCH: Normal mood, normal affect. SKIN: Warm, dry, intact. Results CBC & Chem 7: 03/24/21 04:23 03/24/21 04:23 Labs: Abnormal Lab Results - Last 24 Hours (Table) 03/24/21 03/24/21 03/24/21 Range/Units 04:23 04:23 04:23 RBC 3.72 L (4.30-5.90) m/uL Hgb 12.1 L (13.0-17.5) gm/dL Hct 37.3 L (39.0-53.0) % MCV 100.2 H (80.0-100.0) fL Lymphocytes # 0.5 L (1.0-4.8) k/uL PT (9.0-12.0) sec INR (<1.2) APTT (22.0-30.0) sec Chloride 108 H (98-107) mmol/L BUN 33 H (9-20) mg/dL Creatinine 1.36 H (0.66-1.25) mg/dL Glucose 106 H (74-99) mg/dL Plasma Lactic Acid Warren 2.1 H* (0.7-2.0) mmol/L Total Bilirubin 1.7 H (0.2-1.3) mg/dL AST 86 H (17-59) U/L ALT 74 H (4-49) U/L Alkaline Phosphatase 251 H (38-126) U/L Total Protein 5.8 L (6.3-8.2) g/dL Albumin 2.8 L (3.5-5.0) g/dL 03/24/21 03/24/21 03/24/21 Range/Units 05:05 06:54 10:00 RBC (4.30-5.90) m/uL Hgb (13.0-17.5) gm/dL Hct (39.0-53.0) % MCV (80.0-100.0) fL Lymphocytes # (1.0-4.8) k/uL PT 69.7 H (9.0-12.0) sec INR 7.2 H* (<1.2) APTT 37.1 H (22.0-30.0) sec Chloride (98-107) mmol/L BUN (9-20) mg/dL Creatinine (0.66-1.25) mg/dL Glucose (74-99) mg/dL Plasma Lactic Acid Warren 2.3 H* 2.7 H* (0.7-2.0) mmol/L Total Bilirubin (0.2-1.3) mg/dL AST (17-59) U/L ALT (4-49) U/L Alkaline Phosphatase (38-126) U/L Total Protein (6.3-8.2) g/dL Albumin (3.5-5.0) g/dL 03/24/21 Range/Units 13:13 RBC (4.30-5.90) m/uL Hgb (13.0-17.5) gm/dL Hct (39.0-53.0) % MCV (80.0-100.0) fL Lymphocytes # (1.0-4.8) k/uL PT (9.0-12.0) sec INR (<1.2) APTT (22.0-30.0) sec Chloride (98-107) mmol/L BUN (9-20) mg/dL Creatinine (0.66-1.25) mg/dL Glucose (74-99) mg/dL Plasma Lactic Acid Warren 3.3 H* (0.7-2.0) mmol/L Total Bilirubin (0.2-1.3) mg/dL AST (17-59) U/L ALT (4-49) U/L Alkaline Phosphatase (38-126) U/L Total Protein (6.3-8.2) g/dL Albumin (3.5-5.0) g/dL Assessment and Plan Assessment: acute bilateral pneumonia, community-acquired hypercoagulopathy, in a patient on Coumadin-currently on hold, worsening generalized weakness with Falls lactic acidosis Acute renal failure Dehydration history of sicksinus syndrome,tachybradycardia syndrome with chronic paroxysmal atrial fibrillation transaminitis hypertension Hyperlipidemia CAD, history of [place] history of CVA BPH Vascular dementia Vitamin D deficiency osteoarthritis Tourette syndrome with tics stable. former smoker plan: Continue on current medication regime ,monitoring and symptomatic treatment. vitamin K ordered. Close monitoring of INR /CBC. Amiodarone, currently on hold secondary to elevated LFTs. beta becky resumed.Zithromax and Rocephin ordered.gentle IV fluid hydration. Close monitoring of INR,renal function, electrolytes, LFTs with labs ordered for a.m. had reported, unable to care for him at home anymore,requesting placement.PT/OT/social work consulted. The impression and plan of care has been dictated as directed. : I performed a history and examination of this patient, discussed the same with the dictator. I agree with the dictator's note ,documented as a scribe. Any additional findings or plans will be noted.
[2021-03-25 10:24] LABS: African American GFR (CKD) 60.5 (60.0-200.0); Albumin 2.7 g/dL (3.8-4.9); Albumin/Globulin Ratio 1.16 (1.60-3.17); Anion Gap 10.9 mmol/L (4.00-12.00); BUN/Creat Ratio 18.24 Ratio (12.00-20.00); Blood Urea Nitrogen 22.8 mg/dL (9.0-27.0); Calcium 8.1 mg/dL (8.7-10.3); Carbon Dioxide 21.5 mmol/L (21.6-31.8); Globulin 2.3 g/dL (1.6-3.3); Magnesium 1.9 mg/dL (1.5-2.4); Non-African American GFR(CKD) 52.2 (60.0-200.0); Phosphorus 3.5 mg/dL (2.4-5.1); Total Bilirubin 1.3 mg/dL (0.30-1.20)
[2021-03-25] MEDS: METOPROLOL SUCCINATE (ER) 25 MG TAB.ER.24H PO SCH (10:46)
[2021-03-25] MEDS: PANTOPRAZOLE 40 MG/10 ML VIAL IVP SCH (10:46)
[2021-03-25] MEDS: MEMANTINE 5 MG TAB PO SCH ×2 (10:46→19:30)
[2021-03-25] MEDS: LORATADINE 10 MG TAB PO SCH (10:47)
[2021-03-25] MEDS: FOLIC ACID 1 MG TAB PO SCH (10:47)
[2021-03-25] MEDS ORDERED: SODIUM CHLORIDE 0.9% 500 ML 500 ML IV ONE ×3 (12:00→19:11)
[2021-03-25 12:04] LABS: INR 2.02 (0.90-1.11)
[2021-03-25] MEDS: AMIODARONE 100 MG TAB PO SCH (14:05)
[2021-03-25] MEDS: MULTIVITAMINS, THERA 1 EACH TAB PO SCH (14:05)
[2021-03-25] MEDS: SODIUM CHLORIDE 0.9% 1,000 ML IV SCH (14:49)
[2021-03-25] MEDS ORDERED: IPRATROPIUM-ALBUTEROL 3 ML NEB INHALATION PRN (15:45)
[2021-03-25] MEDS ORDERED: ONDANSETRON 4 MG/2 ML VIAL IVP PRN (15:57)
--- NOTE | 2021-03-25 16:02 | P.PN ---
Subjective Progress Note Date: 03/25/21 this is an 85-year-old gentleman with past medical history of coronary artery disease, status post myocardial infarction about 20 years ago, hypertension and hypertensive perivascular disease, atrial fibrillation, BPH, hyperlipidemia, vascular dementia, vitamin D deficiency, brought to the ER via EMS, status post fall, in a patient on anticoagulation. Reports he slipped. Denies loss of consciousness. Denies lightheadedness, dizziness or focal deficits. Apparently patient fell last week, sustained a scalp laceration ,13 mathew present. No family currently at bedside. Head/C-spine reported no fracture, spondylitic changes of the cervical spine, no acute intracranial abnormality, cerebral atrophy and chronic small vessel ischemia, no change compared to recent exam. Chest x-ray reported patchy bilateral pneumonia, probably increased compared to prior exam. Zithromax initiated in the ER. Maintaining O2 sats in the high 90s on room air. Afebrile, normal WBC EKG sinus rhythm with PACs with apparent conduction, troponin negative 1. Denies chest pain, palpitations or shortness of breath. Hemoglobin 12.1, MCV 100.2, platelets 220, INR 7.2 with vitamin K administered. Sodium 140, potassium 3.7, chloride 108, bicarb 25, BUN 33, creatinine 1.36-Baseline 1.1, glucose 106, lactic acid 3.9, T bili 1.7, AST 86, ALT 74, alk phos 251, albumin 2.8, serum alcohol less than 10, coronavirus not detected. 03/25/2021 lactic acid 3.7, fluid bolus plus increased IV fluids. Patient reported he had not slept all night, lethargic, minimal oral intake. Continues on Rocephin and azithromycin for acute community acquired pneumonia. Afebrile, T-max 99.7, normal WBC. Maintaining O2 sats in the high 90s on 2 L nasal cannula. Hemoglobin 10.4, platelets 212. Received a second dose of vitamin K last night, INR significantly improved currently at 2.02. Sodium 140 potassium 4, renal function improving, BUN 22.8, creatinine 1.3. T bili/LFTs improving. PT evaluation pending. Objective - Vital Signs Vital signs: Vital Signs Temp 97.6 F 03/25/21 14:00 Pulse 53 L 03/25/21 14:00 Resp 16 03/25/21 14:00 BP 119/52 03/25/21 14:00 Pulse Ox 99 03/25/21 14:00 Intake & Output 03/24/21 03/25/21 03/25/21 18:59 06:59 18:59 Other: Voiding Method Diaper Diaper # Voids 4 - Exam GENERAL: Pt awake and alert,restless,NAD HEAD: normocephalic.scalp with mathew from prior fall sustaining laceration- well approximated. EYES: Pupils equal and round. Sclera anicteric, conjunctiva are normal. ENT: Moist mucous membranes. NECK:Supple, no JVD. LUNGS: Bilateral bases diminished with fine Bibasilar crackles. HEART: Heart S1, S2, no S3 or S4. Regular rate and rhythm. Systolic murmur. ABDOMEN: Soft, nontender, nondistended, normoactive bowel sounds. No guarding, no rebound. No masses or organomegaly appreciated. EXTREMITIES: 2+ peripheral pulses. No edema. No calf tenderness. NEUROLOGICAL: Pt oriented x 3. Cranial nerves II through XII grossly intact. Strength and sensation grossly intact. PSYCH: Normal mood, normal affect. SKIN: Warm, dry, intact. - Labs CBC & Chem 7: 03/25/21 05:28 03/25/21 05:28 Labs: Abnormal Lab Results - Last 24 Hours (Table) 03/24/21 03/24/21 03/24/21 Range/Units 16:37 17:18 20:57 RBC (4.40-5.60) X 10*6/uL Hgb (13.0-17.0) g/dL Hct (39.6-50.0) % MCV (80.0-97.0) fL MCH (27.0-32.0) pg MCHC (32.0-37.0) g/dL RDW (11.5-14.5) % Immature Gran # (0.00-0.04) X 10*3/uL Lymphocytes # (0.90-5.00) X 10*3/uL Eosinophils # (0.04-0.35) X 10*3/uL PT 61.6 H (9.0-12.0) sec INR 6.4 H* (<1.2) Carbon Dioxide (21.6-31.8) mmol/L Est GFR (CKD-EPI)NonAf (60.0-200.0) Glucose (70-110) mg/dL Plasma Lactic Acid Warren 4.0 H* 3.6 H* (0.7-2.0) mmol/L Calcium (8.7-10.3) mg/dL Total Bilirubin (0.30-1.20) mg/dL AST (14-35) U/L ALT (10-49) U/L Alkaline Phosphatase (41-126) U/L Total Protein (6.2-8.2) g/dL Albumin (3.8-4.9) g/dL Albumin/Globulin Ratio (1.60-3.17) g/dL 03/24/21 03/25/21 03/25/21 Range/Units 23:28 03:02 05:28 RBC (4.40-5.60) X 10*6/uL Hgb (13.0-17.0) g/dL Hct (39.6-50.0) % MCV (80.0-97.0) fL MCH (27.0-32.0) pg MCHC (32.0-37.0) g/dL RDW (11.5-14.5) % Immature Gran # (0.00-0.04) X 10*3/uL Lymphocytes # (0.90-5.00) X 10*3/uL Eosinophils # (0.04-0.35) X 10*3/uL PT 21.0 H (9.0-12.0) sec INR 2.02 H (<1.2) Carbon Dioxide (21.6-31.8) mmol/L Est GFR (CKD-EPI)NonAf (60.0-200.0) Glucose (70-110) mg/dL Plasma Lactic Acid Warren 3.9 H* 3.2 H* (0.7-2.0) mmol/L Calcium (8.7-10.3) mg/dL Total Bilirubin (0.30-1.20) mg/dL AST (14-35) U/L ALT (10-49) U/L Alkaline Phosphatase (41-126) U/L Total Protein (6.2-8.2) g/dL Albumin (3.8-4.9) g/dL Albumin/Globulin Ratio (1.60-3.17) g/dL 03/25/21 03/25/21 03/25/21 Range/Units 05:28 05:28 05:28 RBC 3.20 L (4.40-5.60) X 10*6/uL Hgb 10.4 L (13.0-17.0) g/dL Hct 33.2 L (39.6-50.0) % MCV 103.8 H (80.0-97.0) fL MCH 32.5 H (27.0-32.0) pg MCHC 31.3 L (32.0-37.0) g/dL RDW 14.8 H (11.5-14.5) % Immature Gran # 0.05 H (0.00-0.04) X 10*3/uL Lymphocytes # 0.49 L (0.90-5.00) X 10*3/uL Eosinophils # 0.01 L (0.04-0.35) X 10*3/uL PT (9.0-12.0) sec INR (<1.2) Carbon Dioxide 21.5 L (21.6-31.8) mmol/L Est GFR (CKD-EPI)NonAf 52.2 L (60.0-200.0) Glucose 118 H (70-110) mg/dL Plasma Lactic Acid Warren 2.6 H* (0.7-2.0) mmol/L Calcium 8.1 L (8.7-10.3) mg/dL Total Bilirubin 1.30 H (0.30-1.20) mg/dL AST 63 H (14-35) U/L ALT 64 H (10-49) U/L Alkaline Phosphatase 210 H (41-126) U/L Total Protein 5.0 L (6.2-8.2) g/dL Albumin 2.7 L (3.8-4.9) g/dL Albumin/Globulin Ratio 1.16 L (1.60-3.17) g/dL 03/25/21 03/25/21 Range/Units 08:48 13:08 RBC (4.40-5.60) X 10*6/uL Hgb (13.0-17.0) g/dL Hct (39.6-50.0) % MCV (80.0-97.0) fL MCH (27.0-32.0) pg MCHC (32.0-37.0) g/dL RDW (11.5-14.5) % Immature Gran # (0.00-0.04) X 10*3/uL Lymphocytes # (0.90-5.00) X 10*3/uL Eosinophils # (0.04-0.35) X 10*3/uL PT (9.0-12.0) sec INR (<1.2) Carbon Dioxide (21.6-31.8) mmol/L Est GFR (CKD-EPI)NonAf (60.0-200.0) Glucose (70-110) mg/dL Plasma Lactic Acid Warren 3.7 H* 4.2 H* (0.7-2.0) mmol/L Calcium (8.7-10.3) mg/dL Total Bilirubin (0.30-1.20) mg/dL AST (14-35) U/L ALT (10-49) U/L Alkaline Phosphatase (41-126) U/L Total Protein (6.2-8.2) g/dL Albumin (3.8-4.9) g/dL Albumin/Globulin Ratio (1.60-3.17) g/dL Assessment and Plan Assessment: acute bilateral pneumonia, community-acquired hypercoagulopathy, in a patient on Coumadin-currently on hold, worsening generalized weakness with Falls lactic acidosis Acute renal failure Dehydration history of sicksinus syndrome,tachybradycardia syndrome with chronic paroxysmal atrial fibrillation transaminitis hypertension Hyperlipidemia CAD, history of [place] history of CVA BPH Vascular dementia Vitamin D deficiency osteoarthritis Tourette syndrome with tics stable. former smoker plan: Continue on current medication regime ,monitoring and symptomatic treatment. Coumadin had been on hold, dosing as per pharmacy. Close monitoring of INR /CBC. Maintained antibiotics of Zithromax and Rocephin.aggressive pulmonary toileting with nebulized bronchodilators scheduled and when necessary, LABA added to med regimine. Repeat chest x-ray in a.m. sputum culture ordered .IV fluid boluses and IV fluid hydration increased-may eventually need some Lasix post-hydration. Renal function slowly improving, close monitoring renal function with labs ordered for a.m. NAVIN placement at nm .PT/OT/evaluations pending. The impression and plan of care has been dictated as directed. : I performed a history and examination of this patient, discussed the same with the dictator. I agree with the dictator's note ,documented as a scribe. Any additional findings or plans will be noted.
[2021-03-25] MEDS: IPRATROPIUM-ALBUTEROL 3 ML NEB INHALATION SCH ×3 (17:43→20:23)
[2021-03-25] MEDS: SYMBICORT 80-4.5 MCG INHALER INHALATION SCH ×2 (17:44→19:49)
[2021-03-25] MEDS ORDERED: WARFARIN 2.5 MG TAB PO ONE (18:00)
[2021-03-25] MEDS ORDERED: FUROSEMIDE 10 MG/ML 4 ML VIAL IV PRN (19:26)
[2021-03-25] MEDS: TAMSULOSIN 0.4 MG CAP.ER.24H PO SCH (19:30)
[2021-03-26 04:25] LABS: INR 1.5 (<1.2); Prothrombin Time 14.9 sec (9.0-12.0)
[2021-03-26] MEDS: LEVOTHYROXINE 50 MCG TAB PO SCH (06:01)
[2021-03-26] MEDS: SODIUM CHLORIDE 0.9% 1,000 ML IV SCH (06:01)
[2021-03-26] MEDS: IPRATROPIUM-ALBUTEROL 3 ML NEB INHALATION SCH ×4 (07:21→20:20)
[2021-03-26] MEDS: SYMBICORT 80-4.5 MCG INHALER INHALATION SCH ×2 (07:21→20:20)
--- NOTE | 2021-03-26 08:12 | XR ---
EXAMINATION TYPE: XR chest 1V portable DATE OF EXAM: 03/26/2021 COMPARISON: 03/24/2021 INDICATION: Bilateral pneumonia TECHNIQUE: Single frontal view of the chest is obtained. FINDINGS: The heart size is normal. The pulmonary vasculature is normal. Peripheral infiltrates through the left mid lung. Left lower lobe infiltrate is present. Some right l ower lobe infiltrate remains present. Findings are worsening over the interval. Some mild thickening is present at the right apex. IMPRESSION: 1. Worsening bilateral lung infiltrates.
[2021-03-26] MEDS: CEFDINIR 300 MG CAP PO SCH ×2 (08:22→08:23)
[2021-03-26] MEDS: FOLIC ACID 1 MG TAB PO SCH (08:23)
[2021-03-26] MEDS: AZITHROMYCIN 500 MG in SODIUM CHLORIDE 0.9% 250 ML IVPB SCH (08:23)
[2021-03-26] MEDS: LORATADINE 10 MG TAB PO SCH (08:23)
[2021-03-26] MEDS: TAMSULOSIN 0.4 MG CAP.ER.24H PO SCH (08:23)
[2021-03-26] MEDS: METOPROLOL SUCCINATE (ER) 25 MG TAB.ER.24H PO SCH (08:23)
[2021-03-26] MEDS: MULTIVITAMINS, THERA 1 EACH TAB PO SCH (08:23)
[2021-03-26] MEDS: MEMANTINE 5 MG TAB PO SCH ×2 (08:23→20:08)
[2021-03-26] MEDS: AMIODARONE 100 MG TAB PO SCH (08:23)
[2021-03-26] MEDS: PANTOPRAZOLE 40 MG/10 ML VIAL IVP SCH (08:23)
[2021-03-26 09:39] LABS: Basophils # (A) 0.01 X 10*3/uL (0.00-0.10); Basophils % (A) 0.2 %; Eosinophils # (A) 0.03 X 10*3/uL (0.04-0.35); Eosinophils % (A) 0.5 %; HCT 28.6 % (39.6-50.0); Lymphocytes # (A) 0.29 X 10*3/uL (0.90-5.00); Lymphocytes % (A) 5.1 %; MCH 32.3 pg (27.0-32.0); MCHC 31.5 g/dL (32.0-37.0); MCV 102.5 fL (80.0-97.0); Monocytes # (A) 0.52 X 10*3/uL (0.20-1.00); Monocytes % (A) 9.1 %; Neutrophils # (A) 4.82 X 10*3/uL (1.80-7.70); Neutrophils % (A) 84.6 %; Platelet Count 190 X 10*3/uL (140-440); RBC 2.79 X 10*6/uL (4.40-5.60); RDW 14.9 % (11.5-14.5)
[2021-03-26] MEDS ORDERED: FUROSEMIDE 10 MG/ML 2 ML VIAL IV ONE (10:22)
[2021-03-26 10:55] LABS: African American GFR (CKD) 61.7 (60.0-200.0); BUN/Creat Ratio 18.37 Ratio (12.00-20.00); Blood Urea Nitrogen 22.6 mg/dL (9.0-27.0); Calcium 7.7 mg/dL (8.7-10.3); Carbon Dioxide 19.4 mmol/L (21.6-31.8); Non-African American GFR(CKD) 53.2 (60.0-200.0)
--- NOTE | 2021-03-26 13:05 | P.PN ---
Subjective Progress Note Date: 03/26/21 this is an 85-year-old gentleman with past medical history of coronary artery disease, status post myocardial infarction about 20 years ago, hypertension and hypertensive perivascular disease, atrial fibrillation, BPH, hyperlipidemia, vascular dementia, vitamin D deficiency, brought to the ER via EMS, status post fall, in a patient on anticoagulation. Reports he slipped. Denies loss of consciousness. Denies lightheadedness, dizziness or focal deficits. Apparently patient fell last week, sustained a scalp laceration ,13 mathew present. No family currently at bedside. Head/C-spine reported no fracture, spondylitic changes of the cervical spine, no acute intracranial abnormality, cerebral atrophy and chronic small vessel ischemia, no change compared to recent exam. Chest x-ray reported patchy bilateral pneumonia, probably increased compared to prior exam. Zithromax initiated in the ER. Maintaining O2 sats in the high 90s on room air. Afebrile, normal WBC EKG sinus rhythm with PACs with apparent conduction, troponin negative 1. Denies chest pain, palpitations or shortness of breath. Hemoglobin 12.1, MCV 100.2, platelets 220, INR 7.2 with vitamin K administered. Sodium 140, potassium 3.7, chloride 108, bicarb 25, BUN 33, creatinine 1.36-Baseline 1.1, glucose 106, lactic acid 3.9, T bili 1.7, AST 86, ALT 74, alk phos 251, albumin 2.8, serum alcohol less than 10, coronavirus not detected. 03/25/2021 lactic acid 3.7, fluid bolus plus increased IV fluids. Patient reported he had not slept all night, lethargic, minimal oral intake. Continues on Rocephin and azithromycin for acute community acquired pneumonia. Afebrile, T-max 99.7, normal WBC. Maintaining O2 sats in the high 90s on 2 L nasal cannula. Hemoglobin 10.4, platelets 212. Received a second dose of vitamin K last night, INR significantly improved currently at 2.02. Sodium 140 potassium 4, renal function improving, BUN 22.8, creatinine 1.3. T bili/LFTs improving. PT evaluation pending. 03/26/2021 lactic acid down to 1.4. Oxygen weaned down to 2 L nasal cannula maintaining O2 sats in the 90s.chest x-ray reporting.worsening bilateral lung infiltrates, mild thickening at the right apex. Better today, more alert, consuming 75% of diet. Denies nausea vomiting or diarrhea. Denies chest pain, palpitations or increased shortness of breath. Afebrile, normal WBC, hemoglobin 9, platelets 190, INR 1.5. BUN 22.6, creatinine down to 1.2. Objective - Vital Signs Vital signs: Vital Signs Temp 97.6 F 03/26/21 07:47 Pulse 86 03/26/21 11:36 Resp 17 03/26/21 08:23 BP 103/44 03/26/21 07:47 Pulse Ox 100 03/26/21 07:47 Intake & Output 03/25/21 03/26/21 03/26/21 18:59 06:59 18:59 Intake Total 100 Output Total 300 1200 Balance -300 -1200 100 Weight 72.121 kg Intake: Oral 100 Output: Urine 300 1200 Straight 600 Other: Voiding Method Diaper Diaper Diaper # Voids 0 - Exam GENERAL: Pt awake, much more alert,NAD HEAD: normocephalic.scalp with mathew from prior fall sustaining laceration- well approximated. EYES: Pupils equal and round. Sclera anicteric, conjunctiva are normal. ENT: Moist mucous membranes. NECK:Supple, no JVD. LUNGS: Bilateral bases diminished with Bibasilar crackles. HEART: Heart S1, S2, no S3 or S4. Regular rate and rhythm. Systolic murmur. ABDOMEN: Soft, nontender, nondistended, normoactive bowel sounds. No guarding, no rebound. No masses or organomegaly appreciated. EXTREMITIES: 2+ peripheral pulses. No edema. No calf tenderness. NEUROLOGICAL: Pt oriented x 3. Cranial nerves II through XII grossly intact. Strength and sensation grossly intact. PSYCH: Normal mood, normal affect. SKIN: Warm, dry, intact. - Labs CBC & Chem 7: 03/26/21 03:49 03/26/21 03:49 Labs: Abnormal Lab Results - Last 24 Hours (Table) 03/25/21 03/25/21 03/25/21 Range/Units 13:08 17:47 21:26 RBC (4.40-5.60) X 10*6/uL Hgb (13.0-17.0) g/dL Hct (39.6-50.0) % MCV (80.0-97.0) fL MCH (27.0-32.0) pg MCHC (32.0-37.0) g/dL RDW (11.5-14.5) % Lymphocytes # (0.90-5.00) X 10*3/uL Eosinophils # (0.04-0.35) X 10*3/uL PT (9.0-12.0) sec INR (<1.2) Chloride (96-109) mmol/L Carbon Dioxide (21.6-31.8) mmol/L Est GFR (CKD-EPI)NonAf (60.0-200.0) Plasma Lactic Acid Warren 4.2 H* 4.0 H* 3.8 H* (0.7-2.0) mmol/L Calcium (8.7-10.3) mg/dL 03/26/21 03/26/21 03/26/21 Range/Units 00:09 03:49 03:49 RBC 2.79 L (4.40-5.60) X 10*6/uL Hgb 9.0 L (13.0-17.0) g/dL Hct 28.6 L (39.6-50.0) % MCV 102.5 H (80.0-97.0) fL MCH 32.3 H (27.0-32.0) pg MCHC 31.5 L (32.0-37.0) g/dL RDW 14.9 H (11.5-14.5) % Lymphocytes # 0.29 L (0.90-5.00) X 10*3/uL Eosinophils # 0.03 L (0.04-0.35) X 10*3/uL PT (9.0-12.0) sec INR (<1.2) Chloride 112 H (96-109) mmol/L Carbon Dioxide 19.4 L (21.6-31.8) mmol/L Est GFR (CKD-EPI)NonAf 53.2 L (60.0-200.0) Plasma Lactic Acid Warren 2.1 H* (0.7-2.0) mmol/L Calcium 7.7 L (8.7-10.3) mg/dL 03/26/21 Range/Units 03:49 RBC (4.40-5.60) X 10*6/uL Hgb (13.0-17.0) g/dL Hct (39.6-50.0) % MCV (80.0-97.0) fL MCH (27.0-32.0) pg MCHC (32.0-37.0) g/dL RDW (11.5-14.5) % Lymphocytes # (0.90-5.00) X 10*3/uL Eosinophils # (0.04-0.35) X 10*3/uL PT 14.9 H (9.0-12.0) sec INR 1.5 H (<1.2) Chloride (96-109) mmol/L Carbon Dioxide (21.6-31.8) mmol/L Est GFR (CKD-EPI)NonAf (60.0-200.0) Plasma Lactic Acid Warren (0.7-2.0) mmol/L Calcium (8.7-10.3) mg/dL Assessment and Plan Assessment: acute bilateral pneumonia, community-acquired hypercoagulopathy, in a patient on Coumadin-currently on hold, worsening generalized weakness with Falls lactic acidosis Acute renal failure Dehydration history of sicksinus syndrome,tachybradycardia syndrome with chronic paroxysmal atrial fibrillation transaminitis hypertension Hyperlipidemia CAD, history of [place] history of CVA BPH Vascular dementia Vitamin D deficiency osteoarthritis Tourette syndrome with tics stable. former smoker plan: Continue on current medication regime ,monitoring and symptomatic treatment. Lasix as ordered. Dc IV fluids. Patient has received significant fluid resusitation, with decreased hemoglobin-suspect dilutional. Coumadin dosing as per pharmacy. Maintain Close monitoring of INR /CBC, renal function.. COntinue antibiotics. Aggressive pulmonary toileting with nebulized bronchodilators, LABA.NAVIN placement at dc .PT/OT/evaluations pending. The impression and plan of care has been dictated as directed. : I performed a history and examination of this patient, discussed the same with the dictator. I agree with the dictator's note ,documented as a scribe. Any additional findings or plans will be noted.
[2021-03-26] MEDS ORDERED: WARFARIN 3 MG TAB PO ONE (18:00)
[2021-03-26] MEDS: HYDROcodone/APAP 5-325MG 1 EACH TAB PO PRN (20:08)
[2021-03-27] MEDS: LEVOTHYROXINE 50 MCG TAB PO SCH (06:04)
[2021-03-27] MEDS: SYMBICORT 80-4.5 MCG INHALER INHALATION SCH ×2 (07:08→21:11)
[2021-03-27] MEDS: IPRATROPIUM-ALBUTEROL 3 ML NEB INHALATION SCH ×4 (07:08→21:11)
[2021-03-27] MEDS: MULTIVITAMINS, THERA 1 EACH TAB PO SCH (08:19)
[2021-03-27] MEDS: MEMANTINE 5 MG TAB PO SCH ×2 (08:19→21:20)
[2021-03-27] MEDS: FOLIC ACID 1 MG TAB PO SCH (08:20)
[2021-03-27] MEDS: PANTOPRAZOLE 40 MG TABLET PO SCH (08:20)
[2021-03-27] MEDS: AZITHROMYCIN 500 MG TAB PO SCH (08:20)
[2021-03-27] MEDS: TAMSULOSIN 0.4 MG CAP.ER.24H PO SCH (08:20)
[2021-03-27] MEDS: CEFDINIR 300 MG CAP PO SCH ×2 (08:20→21:18)
[2021-03-27] MEDS: METOPROLOL SUCCINATE (ER) 25 MG TAB.ER.24H PO SCH (08:20)
[2021-03-27] MEDS: AMIODARONE 100 MG TAB PO SCH (08:20)
[2021-03-27] MEDS: LORATADINE 10 MG TAB PO SCH (08:20)
[2021-03-27 08:22] LABS: INR 1.9 (<1.2); Prothrombin Time 18.3 sec (9.0-12.0)
[2021-03-27 10:59] LABS: Basophils # (A) 0.03 X 10*3/uL (0.00-0.10); Basophils % (A) 0.5 %; Eosinophils # (A) 0.06 X 10*3/uL (0.04-0.35); Eosinophils % (A) 0.9 %; HCT 29.7 % (39.6-50.0); Lymphocytes # (A) 0.42 X 10*3/uL (0.90-5.00); Lymphocytes % (A) 6.5 %; MCH 31.1 pg (27.0-32.0); MCHC 30.3 g/dL (32.0-37.0); MCV 102.8 fL (80.0-97.0); Mean Platelet Volume 11.1 fL (9.5-12.2); Monocytes # (A) 0.53 X 10*3/uL (0.20-1.00); Monocytes % (A) 8.2 %; Neutrophils # (A) 5.36 X 10*3/uL (1.80-7.70); Neutrophils % (A) 83.3 %; Platelet Count 177 X 10*3/uL (140-440); RBC 2.89 X 10*6/uL (4.40-5.60); RDW 15.1 % (11.5-14.5); WBC 6.44 X 10*3/uL (4.50-10.00)
--- NOTE | 2021-03-27 11:03 | P.PN ---
Subjective Progress Note Date: 03/27/21 this is an 85-year-old gentleman with past medical history of coronary artery disease, status post myocardial infarction about 20 years ago, hypertension and hypertensive perivascular disease, atrial fibrillation, BPH, hyperlipidemia, vascular dementia, vitamin D deficiency, brought to the ER via EMS, status post fall, in a patient on anticoagulation. Reports he slipped. Denies loss of consciousness. Denies lightheadedness, dizziness or focal deficits. Apparently patient fell last week, sustained a scalp laceration ,13 mathew present. No family currently at bedside. Head/C-spine reported no fracture, spondylitic changes of the cervical spine, no acute intracranial abnormality, cerebral atrophy and chronic small vessel ischemia, no change compared to recent exam. Chest x-ray reported patchy bilateral pneumonia, probably increased compared to prior exam. Zithromax initiated in the ER. Maintaining O2 sats in the high 90s on room air. Afebrile, normal WBC EKG sinus rhythm with PACs with apparent conduction, troponin negative 1. Denies chest pain, palpitations or shortness of breath. Hemoglobin 12.1, MCV 100.2, platelets 220, INR 7.2 with vitamin K administered. Sodium 140, potassium 3.7, chloride 108, bicarb 25, BUN 33, creatinine 1.36-Baseline 1.1, glucose 106, lactic acid 3.9, T bili 1.7, AST 86, ALT 74, alk phos 251, albumin 2.8, serum alcohol less than 10, coronavirus not detected. 03/25/2021 lactic acid 3.7, fluid bolus plus increased IV fluids. Patient reported he had not slept all night, lethargic, minimal oral intake. Continues on Rocephin and azithromycin for acute community acquired pneumonia. Afebrile, T-max 99.7, normal WBC. Maintaining O2 sats in the high 90s on 2 L nasal cannula. Hemoglobin 10.4, platelets 212. Received a second dose of vitamin K last night, INR significantly improved currently at 2.02. Sodium 140 potassium 4, renal function improving, BUN 22.8, creatinine 1.3. T bili/LFTs improving. PT evaluation pending. 03/26/2021 lactic acid down to 1.4. Oxygen weaned down to 2 L nasal cannula maintaining O2 sats in the 90s.chest x-ray reporting.worsening bilateral lung infiltrates, mild thickening at the right apex. Better today, more alert, consuming 75% of diet. Denies nausea vomiting or diarrhea. Denies chest pain, palpitations or increased shortness of breath. Afebrile, normal WBC, hemoglobin 9, platelets 190, INR 1.5. BUN 22.6, creatinine down to 1.2. 03/27/2021 oxygen weaned off, maintaining O2 sats of 94 on room air. Occasional mild tachycardia. Afebrile. CBC/BMP pending. INR 1.9. Continues on Omnicef and Zithromax. Sputum and urine culture in progress. Diet intake 100%, denies nausea vomiting or diarrhea .Denies chest pain, palpitations or increased shortness of breath. Evaluated by PT with subacute rehab recommended at discharge. Objective - Vital Signs Vital signs: Vital Signs Temp 97.6 F 03/27/21 08:00 Pulse 104 H 03/27/21 10:40 Resp 18 03/27/21 08:00 BP 104/52 03/27/21 08:00 Pulse Ox 94 L 03/27/21 08:00 Intake & Output 03/26/21 03/27/21 03/27/21 18:59 06:59 18:59 Intake Total 572 Output Total 1210 325 Balance -638 -325 Intake: Oral 572 Output: Urine 1210 325 Straight 760 Other: Voiding Method Diaper Indwelling Catheter - Exam GENERAL: Pt awake, much more alert,NAD HEAD: normocephalic.scalp with mathew from prior fall sustaining laceration- well approximated. EYES: Pupils equal and round. Sclera anicteric, conjunctiva are normal. ENT: Moist mucous membranes. NECK:Supple, no JVD. LUNGS: Bilateral bases diminished with Bibasilar crackles, occasional expiratory wheeze. HEART: Heart S1, S2, no S3 or S4. Regular rate and rhythm. Systolic murmur. ABDOMEN: Soft, nontender, nondistended, normoactive bowel sounds. No guarding, no rebound. No masses or organomegaly appreciated. EXTREMITIES: 2+ peripheral pulses. No edema. No calf tenderness. NEUROLOGICAL: Pt oriented x 2. Cranial nerves II through XII grossly intact. Strength and sensation grossly intact. PSYCH: Normal mood, normal affect. SKIN: Warm, dry, intact. Microbiology 03/26/21 14:20 Urine,Catheterized Urine Culture - Preliminary 03/26/21 08:55 Sputum Sputum Culture - Preliminary - Labs CBC & Chem 7: 03/27/21 07:01 03/26/21 03:49 Labs: Abnormal Lab Results - Last 24 Hours (Table) 03/26/21 03/27/21 Range/Units 03:49 07:01 PT 18.3 H (9.0-12.0) sec INR 1.9 H (<1.2) Chloride 112 H (96-109) mmol/L Carbon Dioxide 19.4 L (21.6-31.8) mmol/L Est GFR (CKD-EPI)NonAf 53.2 L (60.0-200.0) Calcium 7.7 L (8.7-10.3) mg/dL Microbiology - Last 24 Hours (Table) 03/26/21 14:20 Urine Culture - Preliminary Urine,Catheterized 03/26/21 08:55 Sputum Culture - Preliminary Sputum Assessment and Plan Assessment: acute bilateral pneumonia, community-acquired hypercoagulopathy, in a patient on Coumadin-currently on hold, worsening generalized weakness with Falls lactic acidosis Acute renal failure Dehydration history of sicksinus syndrome,tachybradycardia syndrome with chronic paroxysmal atrial fibrillation transaminitis hypertension Hyperlipidemia CAD, history of [place] history of CVA BPH Vascular dementia Vitamin D deficiency osteoarthritis Tourette syndrome with tics stable. former smoker plan: Continue on current medication regime ,monitoring and symptomatic treatment. CBC/BMP pending .sputum/urine cultures in progress .Coumadin dosing as per pharmacy. Maintain antibiotics. Aggressive pulmonary toileting with nebulized bronchodilators. Discharge planning for subacute rehab at discharge for strengthening. The impression and plan of care has been dictated as directed. : I performed a history and examination of this patient, discussed the same with the dictator. I agree with the dictator's note ,documented as a scribe. Any additional findings or plans will be noted.
[2021-03-27 12:45] LABS: African American GFR (CKD) 48.5 (60.0-200.0); Anion Gap 12.1 mmol/L (4.00-12.00); BUN/Creat Ratio 18.8 Ratio (12.00-20.00); Blood Urea Nitrogen 28.2 mg/dL (9.0-27.0); Calcium 7.9 mg/dL (8.7-10.3); Carbon Dioxide 18.9 mmol/L (21.6-31.8); Non-African American GFR(CKD) 41.8 (60.0-200.0); Potassium 4.3 mmol/L (3.5-5.5)
[2021-03-27] MEDS ORDERED: WARFARIN 1.5 MG TAB PO ONE (18:00)
[2021-03-28] MEDS: LEVOTHYROXINE 50 MCG TAB PO SCH (05:40)
[2021-03-28 07:07] LABS: INR 2.7 (<1.2); Prothrombin Time 25.8 sec (9.0-12.0)
[2021-03-28] MEDS: SYMBICORT 80-4.5 MCG INHALER INHALATION SCH ×2 (07:33→20:22)
[2021-03-28] MEDS: IPRATROPIUM-ALBUTEROL 3 ML NEB INHALATION SCH ×4 (07:33→20:22)
[2021-03-28 09:16] LABS: Basophils # (A) 0.01 X 10*3/uL (0.00-0.10); Basophils % (A) 0.1 %; Eosinophils # (A) 0.01 X 10*3/uL (0.04-0.35); Eosinophils % (A) 0.1 %; HCT 28.6 % (39.6-50.0); Lymphocytes # (A) 0.25 X 10*3/uL (0.90-5.00); Lymphocytes % (A) 3.6 %; MCH 31.9 pg (27.0-32.0); MCHC 31.5 g/dL (32.0-37.0); MCV 101.4 fL (80.0-97.0); Mean Platelet Volume 11.2 fL (9.5-12.2); Monocytes # (A) 0.71 X 10*3/uL (0.20-1.00); Monocytes % (A) 10.4 %; Neutrophils # (A) 5.81 X 10*3/uL (1.80-7.70); Neutrophils % (A) 84.9 %; Platelet Count 178 X 10*3/uL (140-440); RBC 2.82 X 10*6/uL (4.40-5.60); RDW 15.2 % (11.5-14.5); WBC 6.85 X 10*3/uL (4.50-10.00)
[2021-03-28] MEDS: METOPROLOL SUCCINATE (ER) 25 MG TAB.ER.24H PO SCH (09:39)
[2021-03-28 09:40] LABS: African American GFR (CKD) 44.9 (60.0-200.0); Anion Gap 9.7 mmol/L (4.00-12.00); BUN/Creat Ratio 19.69 Ratio (12.00-20.00); Blood Urea Nitrogen 31.5 mg/dL (9.0-27.0); Carbon Dioxide 19.3 mmol/L (21.6-31.8); Non-African American GFR(CKD) 38.7 (60.0-200.0); Potassium 4.8 mmol/L (3.5-5.5)
[2021-03-28] MEDS: CEFDINIR 300 MG CAP PO SCH ×2 (09:40→22:10)
[2021-03-28] MEDS: LORATADINE 10 MG TAB PO SCH (09:40)
[2021-03-28] MEDS: MULTIVITAMINS, THERA 1 EACH TAB PO SCH (09:40)
[2021-03-28] MEDS: MEMANTINE 5 MG TAB PO SCH ×2 (09:40→22:10)
[2021-03-28] MEDS: AZITHROMYCIN 500 MG TAB PO SCH (09:40)
[2021-03-28] MEDS: AMIODARONE 100 MG TAB PO SCH (09:40)
[2021-03-28] MEDS: FOLIC ACID 1 MG TAB PO SCH (09:41)
[2021-03-28] MEDS: PANTOPRAZOLE 40 MG TABLET PO SCH (09:41)
[2021-03-28] MEDS: TAMSULOSIN 0.4 MG CAP.ER.24H PO SCH (09:41)
--- NOTE | 2021-03-28 13:40 | P.PN ---
Subjective Progress Note Date: 03/28/21 this is an 85-year-old gentleman with past medical history of coronary artery disease, status post myocardial infarction about 20 years ago, hypertension and hypertensive perivascular disease, atrial fibrillation, BPH, hyperlipidemia, vascular dementia, vitamin D deficiency, brought to the ER via EMS, status post fall, in a patient on anticoagulation. Reports he slipped. Denies loss of consciousness. Denies lightheadedness, dizziness or focal deficits. Apparently patient fell last week, sustained a scalp laceration ,13 mathew present. No family currently at bedside. Head/C-spine reported no fracture, spondylitic changes of the cervical spine, no acute intracranial abnormality, cerebral atrophy and chronic small vessel ischemia, no change compared to recent exam. Chest x-ray reported patchy bilateral pneumonia, probably increased compared to prior exam. Zithromax initiated in the ER. Maintaining O2 sats in the high 90s on room air. Afebrile, normal WBC EKG sinus rhythm with PACs with apparent conduction, troponin negative 1. Denies chest pain, palpitations or shortness of breath. Hemoglobin 12.1, MCV 100.2, platelets 220, INR 7.2 with vitamin K administered. Sodium 140, potassium 3.7, chloride 108, bicarb 25, BUN 33, creatinine 1.36-Baseline 1.1, glucose 106, lactic acid 3.9, T bili 1.7, AST 86, ALT 74, alk phos 251, albumin 2.8, serum alcohol less than 10, coronavirus not detected. 03/25/2021 lactic acid 3.7, fluid bolus plus increased IV fluids. Patient reported he had not slept all night, lethargic, minimal oral intake. Continues on Rocephin and azithromycin for acute community acquired pneumonia. Afebrile, T-max 99.7, normal WBC. Maintaining O2 sats in the high 90s on 2 L nasal cannula. Hemoglobin 10.4, platelets 212. Received a second dose of vitamin K last night, INR significantly improved currently at 2.02. Sodium 140 potassium 4, renal function improving, BUN 22.8, creatinine 1.3. T bili/LFTs improving. PT evaluation pending. 03/26/2021 lactic acid down to 1.4. Oxygen weaned down to 2 L nasal cannula maintaining O2 sats in the 90s.chest x-ray reporting.worsening bilateral lung infiltrates, mild thickening at the right apex. Better today, more alert, consuming 75% of diet. Denies nausea vomiting or diarrhea. Denies chest pain, palpitations or increased shortness of breath. Afebrile, normal WBC, hemoglobin 9, platelets 190, INR 1.5. BUN 22.6, creatinine down to 1.2. 03/27/2021 oxygen weaned off, maintaining O2 sats of 94 on room air. Occasional mild tachycardia. Afebrile. CBC/BMP pending. INR 1.9. Continues on Omnicef and Zithromax. Sputum and urine culture in progress. Diet intake 100%, denies nausea vomiting or diarrhea .Denies chest pain, palpitations or increased shortness of breath. Evaluated by PT with subacute rehab recommended at discharge. [id number] maintaining O2 sats in the 90s on room air. T-max 99.9, normal WBC. Urine culture reported no growth after 18 hours. Sputum culture pending. Hemoglobin remains at 9, platelets 178. INR 2.7. Sodium decreased to 134, renal function trending up currently , BUN/creatinine 31.5, 1.6. Week loose cough. Diet intake 50-100%. Denies chest pain, palpitations or shortness of breath. Objective - Vital Signs Vital signs: Vital Signs Temp 97.5 F L 03/28/21 08:30 Pulse 72 03/28/21 10:55 Resp 20 03/28/21 08:30 BP 118/61 03/28/21 08:30 Pulse Ox 96 03/28/21 08:30 Intake & Output 03/27/21 03/28/21 03/28/21 18:59 06:59 18:59 Intake Total 472 240 Output Total 200 200 Balance 272 40 Intake: Oral 472 240 Output: Urine 200 200 Other: Voiding Method Indwelling Catheter Indwelling Catheter Indwelling Catheter # Voids 0 - Exam GENERAL: Pt awake, much more alert,NAD HEAD: normocephalic.scalp with mathew from prior fall sustaining laceration- well approximated. EYES: Pupils equal and round. Sclera anicteric, conjunctiva are normal. ENT: Moist mucous membranes. NECK:Supple, no JVD. LUNGS: Bilateral bases diminished with Bibasilar crackles. HEART: Heart S1, S2, no S3 or S4. Regular rate and rhythm. Systolic murmur. ABDOMEN: Soft, nontender, nondistended, normoactive bowel sounds. No guarding, no rebound. No organomegaly appreciated. EXTREMITIES: 2+ peripheral pulses. No edema. No calf tenderness. NEUROLOGICAL: Pt oriented x 2. Cranial nerves II through XII grossly intact. Strength and sensation grossly intact. PSYCH: Normal mood, normal affect. SKIN: Warm, dry, intact. - Labs CBC & Chem 7: 03/28/21 06:34 03/28/21 06:34 Labs: Abnormal Lab Results - Last 24 Hours (Table) 03/28/21 03/28/21 03/28/21 Range/Units 06:34 06:34 06:34 RBC 2.82 L (4.40-5.60) X 10*6/uL Hgb 9.0 L (13.0-17.0) g/dL Hct 28.6 L (39.6-50.0) % MCV 101.4 H (80.0-97.0) fL MCHC 31.5 L (32.0-37.0) g/dL RDW 15.2 H (11.5-14.5) % Immature Gran # 0.06 H (0.00-0.04) X 10*3/uL Lymphocytes # 0.25 L (0.90-5.00) X 10*3/uL Eosinophils # 0.01 L (0.04-0.35) X 10*3/uL PT 25.8 H (9.0-12.0) sec INR 2.7 H (<1.2) Sodium 134 L (135-145) mmol/L Carbon Dioxide 19.3 L (21.6-31.8) mmol/L BUN 31.5 H (9.0-27.0) mg/dL Creatinine 1.6 H (0.6-1.5) mg/dL Est GFR (CKD-EPI)AfAm 44.9 L (60.0-200.0) Est GFR (CKD-EPI)NonAf 38.7 L (60.0-200.0) Calcium 8.0 L (8.7-10.3) mg/dL Microbiology - Last 24 Hours (Table) 03/26/21 08:55 Gram Stain - Final Sputum Sputum Culture - Final 03/26/21 14:20 Urine Culture - Final Urine,Catheterized Assessment and Plan Assessment: acute bilateral pneumonia, community-acquired , in a patient with recent prior CT reporting cavitary left upper lobe mass with satellite nodules seen as well 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 Acute hypoxic respiratory failure secondary to the above, improved hypercoagulopathy, in a patient on Coumadin-currently on hold, worsening generalized weakness with Falls lactic acidosis Acute renal failure Dehydration history of sicksinus syndrome,tachybradycardia syndrome with chronic paroxysmal atrial fibrillation transaminitis hypertension Hyperlipidemia CAD, history of [place] history of CVA BPH Vascular dementia Vitamin D deficiency osteoarthritis Tourette syndrome with tics stable. former smoker plan: Continue on current medication regime ,monitoring and symptomatic treatment. Hold diuretics, gentle IV fluid hydration related to worsening renal function. Coumadin dosing as per pharmacy. Maintain antibiotics. Aggressive pulmonary toileting with nebulized bronchodilators. Discharge planning for subacute rehab at discharge for strengthening, tomorrow pending improvement in renal function. The impression and plan of care has been dictated as directed. : I performed a history and examination of this patient, discussed the same with the dictator. I agree with the dictator's note ,documented as a scribe. Any additional findings or plans will be noted.
--- NOTE | 2021-03-28 13:46 | P.DS ---
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 Acute hypoxic respiratory failure secondary to the above, improved hypercoagulopathy, in a patient on Coumadin-currently on hold, worsening generalized weakness with Falls lactic acidosis Acute renal failure Dehydration history of sicksinus syndrome,tachybradycardia syndrome with chronic paroxysmal atrial fibrillation transaminitis hypertension Hyperlipidemia CAD, history of [place] history of CVA BPH Vascular dementia Vitamin D deficiency osteoarthritis Tourette syndrome with tics stable. former smoker Hospital course:this is an 85-year-old gentleman with past medical history of coronary artery disease, status post myocardial infarction about 20 years ago, hypertension and hypertensive perivascular disease, atrial fibrillation, BPH, hyperlipidemia, vascular dementia, vitamin D deficiency, brought to the ER via EMS, status post fall, in a patient on anticoagulation. Reports he slipped. Denies loss of consciousness. Denies lightheadedness, dizziness or focal deficits. Apparently patient fell last week, sustained a scalp laceration ,13 mathew present. No family currently at bedside. Head/C-spine reported no fracture, spondylitic changes of the cervical spine, no acute intracranial abnormality, cerebral atrophy and chronic small vessel ischemia, no change compared to recent exam. Chest x-ray reported patchy bilateral pneumonia, probably increased compared to prior exam. Zithromax initiated in the ER. Maintaining O2 sats in the high 90s on room air. Afebrile, normal WBC EKG sinus rhythm with PACs with apparent conduction, troponin negative 1. Denies chest pain, palpitations or shortness of breath. Hemoglobin 12.1, MCV 100.2, platelets 220, INR 7.2 with vitamin K administered. Sodium 140, potassium 3.7, chloride 108, bicarb 25, BUN 33, creatinine 1.36-Baseline 1.1, glucose 106, lactic acid 3.9, T bili 1.7, AST 86, ALT 74, alk phos 251, albumin 2.8, serum alcohol less than 10, coronavirus not detected. 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 03/25/2021 lactic acid 3.7, fluid bolus plus increased IV fluids. Patient reported he had not slept all night, lethargic, minimal oral intake. Continues on Rocephin and azithromycin for acute community acquired pneumonia. Afebrile, T-max 99.7, normal WBC. Maintaining O2 sats in the high 90s on 2 L nasal cannula. Hemoglobin 10.4, platelets 212. Received a second dose of vitamin K last night, INR significantly improved currently at 2.02. Sodium 140 potassium 4, renal function improving, BUN 22.8, creatinine 1.3. T bili/LFTs improving. PT evaluation pending. 03/26/2021 lactic acid down to 1.4. Oxygen weaned down to 2 L nasal cannula maintaining O2 sats in the 90s.chest x-ray reporting.worsening bilateral lung infiltrates, mild thickening at the right apex. Better today, more alert, co nsuming 75% of diet. Denies nausea vomiting or diarrhea. Denies chest pain, palpitations or increased shortness of breath. Afebrile, normal WBC, hemoglobin 9, platelets 190, INR 1.5. BUN 22.6, creatinine down to 1.2. 03/27/2021 oxygen weaned off, maintaining O2 sats of 94 on room air. Occasional mild tachycardia. Afebrile. CBC/BMP pending. INR 1.9. Continues on Omnicef and Zithromax. Sputum and urine culture in progress. Diet intake 100%, denies nausea vomiting or diarrhea .Denies chest pain, palpitations or increased shortness of breath. Evaluated by PT with subacute rehab [place] at discharge. [id number] maintaining O2 sats in the 90s on room air. T-max 99.9, normal WBC. Urine culture reported no growth after 18 hours. Sputum culture pending. Hemoglobin remains at 9, platelets 178. INR 2.7. Sodium decreased to 134, renal function trending up currently , BUN/creatinine 31.5, 1.6. Week loose cough. Diet intake 50-100%. Denies chest pain, palpitations or shortness of breath. Significant clinical improvement. Discharge planning in progress for [facility] subacute rehab for 03/29/2021 pending improvement in renal function with gentle IV fluid hydration. Patient will be discharged in a stable condition with guarded prognosis. The impression and plan of care has been dictated as directed. : I performed a history and examination of this patient, discussed the same with the dictator. I agree with the dictator's note ,documented as a scribe. Any additional findings or plans will be noted. Patient Condition at Discharge: Stable Plan - Discharge Summary Discharge Rx Participant: Yes New Discharge Prescriptions: New Ipratropium-Albuterol Nebulize [Duoneb 0.5 mg-3 mg/3 ml Soln] 3 ml INHALATION Q4H PRN ml PRN Reason: Shortness Of Breath Or Wheezing Tamsulosin [Flomax] 0.4 mg PO PC-BRKFST capsule Pantoprazole [Protonix] 40 mg PO AC-BRKFST tab Budesonide/Formoterol Fumarate [Symbicort 80-4.5 Mcg Inhaler] 2 puff INHALATION BID #1 inh Warfarin [Coumadin] 1.5 mg PO DAILY #2 dose Ipratropium-Albuterol Nebulize [Duoneb 0.5 mg-3 mg/3 ml Soln] 3 ml INHALATION RT-QID ml Cefdinir [Omnicef] 300 mg PO BID 5 Days #10 cap Continue Furosemide [Lasix] 20 mg PO DAILY Ferocon Cap 1 cap PO DAILY Levothyroxine Sodium [Synthroid] 50 mcg PO DAILY Folic Acid 1 mg PO DAILY Amiodarone HCl [Pacerone] 100 mg PO DAILY Loratadine 10 mg PO DAILY Metoprolol Succinate [Toprol XL] 25 mg PO DAILY Memantine [Namenda] 5 mg PO BID Discontinued Warfarin [Coumadin] 2.5 mg PO SUTUWETHSA@1645 Warfarin [Coumadin] 3.75 mg PO MOFR@1645 ALPRAZolam [Xanax] 0.25 mg PO TID PRN PRN Reason: Anxiety Discharge Medication List Furosemide [Lasix] 20 mg PO DAILY 01/27/14 [History] Ferocon Cap 1 cap PO DAILY 07/13/16 [History] Levothyroxine Sodium [Synthroid] 50 mcg PO DAILY 06/28/17 [History] Folic Acid 1 mg PO DAILY 07/28/19 [History] Amiodarone HCl [Pacerone] 100 mg PO DAILY 08/17/20 [History] Loratadine 10 mg PO DAILY 08/17/20 [History] Memantine [Namenda] 5 mg PO BID 08/17/20 [History] Metoprolol Succinate [Toprol XL] 25 mg PO DAILY 08/17/20 [History] Budesonide/Formoterol Fumarate [Symbicort 80-4.5 Mcg Inhaler] 2 puff INHALATION BID #1 inh 03/28/21 [Rx] Cefdinir [Omnicef] 300 mg PO BID 5 Days #10 cap 03/28/21 [Rx] Ipratropium-Albuterol Nebulize [Duoneb 0.5 mg-3 mg/3 ml Soln] 3 ml INHALATION Q4H PRN ml 03/28/21 [Rx] Ipratropium-Albuterol Nebulize [Duoneb 0.5 mg-3 mg/3 ml Soln] 3 ml INHALATION RT-QID ml 03/28/21 [Rx] Pantoprazole [Protonix] 40 mg PO AC-BRKFST tab 03/28/21 [Rx] Tamsulosin [Flomax] 0.4 mg PO PC-BRKFST capsule 03/28/21 [Rx] Warfarin [Coumadin] 1.5 mg PO DAILY #2 dose 03/28/21 [Rx] Follow up Appointment(s)/Referral(s): Duc Keller MD [Primary Care Provider] - 3 Days ([facility]) Activity/Diet/Wound Care/Special Instructions: Nathen daily PT INR CBC/BMP in 3 days dysphasia Level 2; ground diet Scalp mathew placed on 03/21/1921, to be removed in 10 days= 03/31/2021 Discharge Disposition: TRANSFER TO SNF/F
[2021-03-28] MEDS ORDERED: WARFARIN 0.5 MG TAB PO ONE (18:00)
[2021-03-28] MEDS: SODIUM CHLORIDE 0.9% 1,000 ML IV SCH (18:24)
[2021-03-29] MEDS: LEVOTHYROXINE 50 MCG TAB PO SCH (06:34)
[2021-03-29 07:24] LABS: Glucose,Whole Blood 119 mg/dL (75-99)
[2021-03-29 08:12] LABS: INR 3.6 (<1.2); Prothrombin Time 34.2 sec (9.0-12.0)
[2021-03-29] MEDS: IPRATROPIUM-ALBUTEROL 3 ML NEB INHALATION SCH ×4 (08:17→20:58)
[2021-03-29] MEDS: SYMBICORT 80-4.5 MCG INHALER INHALATION SCH ×2 (08:17→20:58)
[2021-03-29] MEDS: AMIODARONE 100 MG TAB PO SCH (08:39)
[2021-03-29] MEDS: PANTOPRAZOLE 40 MG TABLET PO SCH (08:39)
[2021-03-29] MEDS: CEFDINIR 300 MG CAP PO SCH ×2 (08:39→21:48)
[2021-03-29] MEDS: AZITHROMYCIN 500 MG TAB PO SCH (08:40)
[2021-03-29] MEDS: METOPROLOL SUCCINATE (ER) 25 MG TAB.ER.24H PO SCH (08:40)
[2021-03-29] MEDS: MEMANTINE 5 MG TAB PO SCH ×2 (08:40→21:48)
[2021-03-29] MEDS: FOLIC ACID 1 MG TAB PO SCH (08:40)
[2021-03-29] MEDS: TAMSULOSIN 0.4 MG CAP.ER.24H PO SCH (08:40)
[2021-03-29] MEDS: LORATADINE 10 MG TAB PO SCH (08:41)
[2021-03-29] MEDS: MULTIVITAMINS, THERA 1 EACH TAB PO SCH (08:41)
[2021-03-29 13:41] LABS: African American GFR (CKD) 45.6 (60.0-200.0); Anion Gap 11.8 mmol/L (4.00-12.00); BUN/Creat Ratio 24.3 Ratio (12.00-20.00); Blood Urea Nitrogen 38.4 mg/dL (9.0-27.0); Carbon Dioxide 17.9 mmol/L (21.6-31.8); Non-African American GFR(CKD) 39.3 (60.0-200.0); Potassium 5.2 mmol/L (3.5-5.5)
--- NOTE | 2021-03-29 17:21 | US ---
EXAMINATION TYPE: US mass soft tissue chest/back DATE OF EXAM: 03/29/2021 COMPARISON: CT CLINICAL HISTORY: Left lateral chest swelling. Inpatient with left posterior chest soft tissue swelli ng. US findings of soft tissue US at left posterolateral chest: anterior, complex fluid area seen at nicola ent's area of interest and size = 14.0 x 6.2 x 0.7cm. IMPRESSION: There is a thin elongated subcutaneous fluid collection in the area of concern on the lef t lateral chest wall. The appearance is nonspecific.
[2021-03-29] MEDS ORDERED: WARFARIN 0.5 MG TAB PO ONE (18:00)
[2021-03-29] MEDS: SODIUM CHLORIDE 0.9% 1,000 ML IV SCH (20:31)
[2021-03-30] MEDS: LEVOTHYROXINE 50 MCG TAB PO SCH (05:36)
[2021-03-30] MEDS: IPRATROPIUM-ALBUTEROL 3 ML NEB INHALATION SCH ×4 (07:50→19:43)
[2021-03-30] MEDS: SYMBICORT 80-4.5 MCG INHALER INHALATION SCH ×2 (07:50→19:43)
[2021-03-30] MEDS: MULTIVITAMINS, THERA 1 EACH TAB PO SCH (08:47)
[2021-03-30] MEDS: AZITHROMYCIN 500 MG TAB PO SCH (08:47)
[2021-03-30] MEDS: AMIODARONE 100 MG TAB PO SCH (08:47)
[2021-03-30] MEDS: MEMANTINE 5 MG TAB PO SCH ×2 (08:48→23:00)
[2021-03-30] MEDS: PANTOPRAZOLE 40 MG TABLET PO SCH (08:48)
[2021-03-30] MEDS: CEFDINIR 300 MG CAP PO SCH ×2 (08:48→23:02)
[2021-03-30] MEDS: METOPROLOL SUCCINATE (ER) 25 MG TAB.ER.24H PO SCH (08:48)
[2021-03-30] MEDS: TAMSULOSIN 0.4 MG CAP.ER.24H PO SCH (08:48)
[2021-03-30] MEDS: FOLIC ACID 1 MG TAB PO SCH (08:48)
[2021-03-30] MEDS: LORATADINE 10 MG TAB PO SCH (08:48)
[2021-03-30 09:29] LABS: Prothrombin Time 28.6 sec (9.0-12.0)
--- NOTE | 2021-03-30 14:41 | P.PN ---
Subjective Progress Note Date: 03/30/21 Principal diagnosis: mild dementia, falls fluid filled collection chest wall noted , pt otherwise awaiting d/c to [facility] , possible incision & drainage fluid with culture and/or cytology performed wednesday Objective - Vital Signs Vital signs: Vital Signs Temp 97.8 F 03/30/21 08:00 Pulse 104 H 03/30/21 08:00 Resp 22 03/30/21 08:00 BP 112/50 03/30/21 08:00 Pulse Ox 95 03/30/21 08:00 Intake & Output 03/29/21 03/30/21 03/30/21 19:59 06:59 18:59 Intake Total Output Total 300 Balance -300 Intake: Oral Output: Urine 300 Other: Voiding Method Indwelling Catheter # Voids # Bowel Movements - Exam Heent: william kramermi, nares patient throat : clear Neck:supple, no jvd no bruit Heart rrr no murmur Lungs: ctab ABD: flat soft nontender, no palpable masses ext: no arthur, no edema, pulses present neuro alert oriented to person mild dementia noted , at risk for falls - Labs CBC & Chem 7: 03/28/21 06:34 03/29/21 06:55 Labs: Abnormal Lab Results - Last 24 Hours (Table) 03/30/21 Range/Units 08:40 PT 28.6 H (9.0-12.0) sec INR 3.0 H (<1.2) Assessment and Plan (1) Mild dementia Current Visit: Yes Status: Acute Code(s): F03.90 - UNSPECIFIED DEMENTIA WITHOUT BEHAVIORAL DISTURBANCE SNOMED Code(s): 87250237 (2) COPD (chronic obstructive pulmonary disease) Current Visit: Yes Status: Acute Code(s): J44.9 - CHRONIC OBSTRUCTIVE PULMONARY DISEASE, UNSPECIFIED SNOMED Code(s): 64812247 (3) Coagulopathy Current Visit: Yes Status: Acute Code(s): D68.9 - COAGULATION DEFECT, UNSPECIFIED SNOMED Code(s): 23412158 (4) Fall Current Visit: Yes Status: Acute Code(s): W19.XXXA - UNSPECIFIED FALL, INITIAL ENCOUNTER SNOMED Code(s): 0529357 (5) Weakness Current Visit: Yes Status: Acute Code(s): R53.1 - WEAKNESS SNOMED Code(s): 57756578 (6) Afib Current Visit: No Status: Acute Code(s): I48.91 - UNSPECIFIED ATRIAL FIBRILLATION SNOMED Code(s): 42104639 (7) History of CVA (cerebrovascular accident) Current Visit: No Status: Acute Code(s): Z86.73 - PRSNL HX OF TIA (TIA), AND CEREB INFRC W/O RESID DEFICITS SNOMED Code(s): 099328996 Plan: wating for placement Time with Patient: Greater than 30
[2021-03-30] MEDS ORDERED: WARFARIN 1.5 MG TAB PO ONE (18:00)
[2021-03-30] MEDS: HYDROcodone/APAP 5-325MG 1 EACH TAB PO PRN (23:00)
[2021-03-30] MEDS: SODIUM CHLORIDE 0.9% 1,000 ML IV SCH (23:02)
[2021-03-31] MEDS: SODIUM CHLORIDE 0.9% 1,000 ML IV SCH (04:50)
[2021-03-31] MEDS: LEVOTHYROXINE 50 MCG TAB PO SCH (07:32)
[2021-03-31 07:56] LABS: INR 2.5 (<1.2); Prothrombin Time 23.9 sec (9.0-12.0)
[2021-03-31 08:07] VITALS: BP 116/70; RESP 15; TEMP 98.1
[2021-03-31] MEDS: IPRATROPIUM-ALBUTEROL 3 ML NEB INHALATION SCH ×2 (08:44→11:35)
[2021-03-31] MEDS: SYMBICORT 80-4.5 MCG INHALER INHALATION SCH (08:44)
[2021-03-31] MEDS: TAMSULOSIN 0.4 MG CAP.ER.24H PO SCH (10:32)
[2021-03-31] MEDS: CEFDINIR 300 MG CAP PO SCH (10:32)
[2021-03-31] MEDS: HYDROcodone/APAP 5-325MG 1 EACH TAB PO PRN (10:32)
[2021-03-31] MEDS: AMIODARONE 100 MG TAB PO SCH (10:34)
[2021-03-31] MEDS: AZITHROMYCIN 500 MG TAB PO SCH (10:34)
[2021-03-31] MEDS: PANTOPRAZOLE 40 MG TABLET PO SCH (10:34)
[2021-03-31] MEDS: FOLIC ACID 1 MG TAB PO SCH (10:34)
[2021-03-31] MEDS: LORATADINE 10 MG TAB PO SCH (10:34)
[2021-03-31] MEDS: MULTIVITAMINS, THERA 1 EACH TAB PO SCH (10:34)
[2021-03-31] MEDS: METOPROLOL SUCCINATE (ER) 25 MG TAB.ER.24H PO SCH (10:34)
[2021-03-31] MEDS: MEMANTINE 5 MG TAB PO SCH (10:34)
[2021-03-31 11:42] VITALS: PULSE 88
[2021-03-31 12:33] VITALS: BMI 23.4
--- NOTE | 2021-03-31 12:53 | CONS ---
CONSULTATION Mr. Javier is an 85-year-old male who presented through the emergency room on March 24 with falls and being unstable. Patient has a history of paroxysmal atrial fibrillation, has been followed by Dr. Haney in the past. He has a history of hypertension and hyperlipidemia. Cardiology consultation was requested because of his labile INR. Patient has a history of malignancy, and apparently there is a left upper lobe mass with satellite nodule and metastatic disease to the liver suspicious for malignancy. He is awake and alert. He denies any chest discomfort. He denies any syncope. He denies any palpitations. He is in sinus mechanism. He has no PND or orthopnea. His systolic function by echocardiography performed by Dr. Haney in September of this year revealed an ejection fraction of 50% with mild to moderate mitral and moderate aortic regurgitation, moderate pulmonary hypertension. MEDICATIONS: His medications at home include metoprolol succinate 25 mg daily, Namenda, levothyroxine, Lasix 20 mg daily, amiodarone 100 mg daily, Coumadin, tamsulosin, Protonix, albuterol, and he has been on antibiotics. On presentation, his INR was quite elevated at 7.2. REVIEW OF SYSTEMS: RESPIRATORY SYSTEM: He has dyspnea on exertion. No recent wheezing or cough. GI SYSTEM: No recent GI bleeding. No peptic ulcer disease. SYSTEM: No dysuria or hematuria. NERVOUS SYSTEM: He carries a diagnosis of stroke. PHYSICAL EXAMINATION: He is an 85-year-old male, alert, in no apparent distress. Blood pressure 116/70 with a heart rate in the 80s. HEAD: Normocephalic. EYES: Sclerae anicteric. NECK: Good carotid upstroke. No bruit. LUNGS: Clear to auscultation. HEART: Regular rate and rhythm. S1, S2. No S3, with systolic ejection murmur heard at the base. No diastolic murmur. No rub. ABDOMEN: Soft, nontender. Positive bowel sounds. No organomegaly. EXTREMITIES: Trace edema. LAB DATA: BUN and creatinine of 38 and 1.6. Potassium 5.2. His INR today is 2.5. His hemoglobin is 9, white blood cells of 6.85. His EKG on presentation revealed a sinus mechanism, first degree AV block with incomplete right bundle branch block. IMPRESSION: 1. Episodes of fall with no clear syncope. 2. Paroxysmal atrial fibrillation. 3. Dementia. 4. Malignancy. 5. Moderate aortic regurgitation. 6. Hypertension. 7. Hyperlipidemia. RECOMMENDATIONS: In view of the labile INR and his falls, I would recommend to stop the Coumadin and I would recommend to initiate treatment with Xarelto 2.5 mg twice a day, and that can be initiated from tomorrow. Depending on his progress, further recommendations will be made. Thank you for this consult. Will follow with you. TERESITA / MAYN: [id number] / KAREN
[2021-03-31] MEDS ORDERED: WARFARIN 1.5 MG TAB PO ONE (18:00)
[2021-04-01] MEDS ORDERED: APIXABAN 5 MG TAB PO SCH (09:00)
== END 2021-03-31 15:43 | DRG 193 ==
LOC: EC 03:36 → 4SSUR 06:15
PROVIDERS: ADMIT Family Medicine; ATTEND Family Medicine
PROC: 05HB33Z Insertion of Infusion Device into Right Basilic Vein, Percutaneous Approach (ICD-10-PCS; principal; 2021-03-31 08:25)
DX: J18.9 Pneumonia, unspecified organism (principal); J96.01 Acute respiratory failure with hypoxia; D68.9 Coagulation defect, unspecified; E87.2 Acidosis; J44.0 Chronic obstructive pulmonary disease with (acute) lower respiratory infection; N17.9 Acute kidney failure, unspecified; C78.7 Secondary malignant neoplasm of liver and intrahepatic bile duct; E55.9 Vitamin D deficiency, unspecified; E78.5 Hyperlipidemia, unspecified; E86.0 Dehydration; F01.50 Vascular dementia, unspecified severity, without behavioral disturbance, psychotic disturbance, mood disturbance, and anxiety; F41.9 Anxiety disorder, unspecified; F95.2 Tourette's disorder; I10 Essential (primary) hypertension; I25.10 Atherosclerotic heart disease of native coronary artery without angina pectoris; I25.2 Old myocardial infarction; I27.20 Pulmonary hypertension, unspecified; I35.1 Nonrheumatic aortic (valve) insufficiency; I48.0 Paroxysmal atrial fibrillation; M19.90 Unspecified osteoarthritis, unspecified site; Z20.822 Contact with and (suspected) exposure to COVID-19; N40.0 Benign prostatic hyperplasia without lower urinary tract symptoms; S01.01XA Laceration without foreign body of scalp, initial encounter; W18.30XA Fall on same level, unspecified, initial encounter; Z79.01 Long term (current) use of anticoagulants; Z79.890 Hormone replacement therapy; Z79.899 Other long term (current) drug therapy; Z82.49 Family history of ischemic heart disease and other diseases of the circulatory system; Z85.048 Personal history of other malignant neoplasm of rectum, rectosigmoid junction, and anus; Z85.828 Personal history of other malignant neoplasm of skin; Z86.73 Personal history of transient ischemic attack (TIA), and cerebral infarction without residual deficits; Z87.891 Personal history of nicotine dependence; Z91.81 History of falling; I44.0 Atrioventricular block, first degree; I45.10 Unspecified right bundle-branch block; I49.5 Sick sinus syndrome; R91.8 Other nonspecific abnormal finding of lung field
CPT/HCPCS: 36410; 70450; 71045; 72125; 72170; 76937; 80048; 80053; 80320; 83605; 83690; 83735; 84100; 84484; 85025; 85610; 85730; 86850; 86900; 86901; 87070; 87086; 87205; 87635; 93005; 94640; 94760; 99285

== ENCOUNTER 2021-04-06 16:28 | Inpatient (IN) | payer MEDICARE ==
--- NOTE | 2021-04-06 17:04 | ED ---
General Adult HPI - General Chief complaint: Shortness of Breath Stated complaint: JOHNY Time Seen by Provider: 04/06/21 16:29 Source: EMS Mode of arrival: EMS - History of Present Illness Initial comments: Dictation was produced using [employer] dictation software. please excuse any grammatical, word or spelling errors. Chief Complaint: 85-year-old male with multiple comorbidities presents to the emergency department for shortness of breath History of Present Illness: 85-year-old male he is currently a resident one of the local [facility], [facility]. Patient was brought to the emergency department for medical attention. Patient is DO NOT RESUSCITATE, DO NOT INTUBATE. Patient allegedly has history of heart failure. He was given 80 mg of Lasix recently at the [facility] to improve his breathing patient's breathing got worse. He contacted patient's prior care physician who started [facility] staff to bring patient to the emergency room. Patient is placed on noninvasive ventilation. Patient is a poor historian. Chart review shows that patient has history of atrial fibrillation, coronary artery disease, cancer, dementia, dyslipidemia and hypertension. Patient's is allegedly on her way to the emergency room. There is a discharge summary from 03/28/2021. At that time patient allegedly had a left chest wall fluid collection Unable to obtain ROS from patient due to mental status. PHYSICAL EXAM: General Impression: Alert and oriented x1/4, on BiPAP, mildly dyspneic, cachexic, lethargic HEENT: Normocephalic atraumatic, extra-ocular movements intact, pupils equal and reactive to light bilaterally, mucous membranes moist. Cardiovascular: Heart regular rate and rhythm Chest: Diffuse lung crackles Abdomen: abdomen soft, non-tender, non-distended, no organomegaly Musculoskeletal: Pulses present and equal in all extremities, no peripheral edema Motor: no focal deficits noted Neurological: CN II-XII grossly intact, no focal motor or sensory deficits noted ED course: 69-year-old male multiple comorbidities presents to emergency department for worsening dyspnea. Patient has multiple comorbidities. As upon arrival shows heart rate of 112, blood pressure 83/40, respiratory rate of 27. Temperature 90.8, 95% on BiPAP is at the bedside does not know what's been going with the patient per November some 48 hours ago but has not received an update on patient's medical status. She does confirm that patient is DNR/DNI but she is agreeable for medical care and hospitalization. EKG interpretation: Ventricular rate 112, sinus tachycardia,. 05/25/1933, QRS 90, QTc 455. No MN prolongation, no QTC prolongation, no ST or T-wave changes noted. EKG compared to 03/24/2021 showing no changes. Overall, this EKG is unremarkable Laboratory evaluation obtained. No leukocytosis. CBC is within acceptable limits. Coag panel is within acceptable limits. Patient has INR 5.3. Metabolic panel shows potassium 6.3. Stenosis with a bicarb of 15. Lactic acid level V.9. Elevated renal markers gradient 3.04. BUN of 125. coronavirus negative. Chest x-ray shows worsening patchy opacities bilaterally. Due to unclear etiology of patient's symptoms with concern of heart failure versus other pulmonary process CT without contrast was ordered showing right lower lobe infiltrate atelectasis. There is a masslike infiltrate with cavitation left lower lobe. Patient reevaluated at bedside at 7:50 PM found to be in stable medical condition. He is tolerating noninvasive ventilation. He started on antibiotics to cover for possible pneumonia. Patient given gentle fluids due to perhaps some concern that patient might have heart failure. There is no echocardiogram in our EMR that suggest the patient has significantly reduced EF. Patient's symptoms could be secondary to sepsis. His CODE STATUS was updated in the electronic medical record per patient's wishes. Patient's CODE STATUS was confirmed with patient's . Patient will be admitted to Dr. Keller/Selina's Service - Related Data Home Medications Medication Instructions Recorded Confirmed Ferocon Cap 1 cap PO DAILY@0800 07/13/16 04/06/21 Levothyroxine Sodium [Synthroid] 50 mcg PO DAILY@0600 06/28/17 04/06/21 Folic Acid 1 mg PO DAILY@1700 07/28/19 04/06/21 Amiodarone HCl [Pacerone] 100 mg PO DAILY@0800 08/17/20 04/06/21 Loratadine 10 mg PO DAILY@0800 08/17/20 04/06/21 Memantine [Namenda] 5 mg PO BID@0800,1700 08/17/20 04/06/21 ALPRAZolam [Xanax] 0.25 mg PO Q8H PRN 04/06/21 04/06/21 Apixaban [Eliquis] 2.5 mg PO BID@0800,1700 04/06/21 04/06/21 Budesonide/Formoterol Fumarate 2 puff INHALATION RT-BID@0800,1700 04/06/21 04/06/21 [Symbicort 80-4.5 Mcg Inhaler] Ensure Enlive 120 ml PO TID@0800,1200,1700 04/06/21 04/06/21 Furosemide [Lasix] 40 mg PO ONCE 04/06/21 04/06/21 Ipratropium-Albuterol Nebulize 3 ml INHALATION RT-QID PRN 04/06/21 04/06/21 [Duoneb 0.5 mg-3 mg/3 ml Soln] Magnesium Hydroxide [Milk of 7,200 mg PO Q48H PRN 04/06/21 04/06/21 Magnesia Concentrate] Metoprolol Tartrate [Lopressor] 25 mg PO DAILY@0800 04/06/21 04/06/21 Na Phos,M-B/Na Phos,Di-Ba [Fleet 133 ml RECTAL DAILY PRN 04/06/21 04/06/21 Adult] Pantoprazole [Protonix] 40 mg PO DAILY@0600 04/06/21 04/06/21 Tamsulosin [Flomax] 0.4 mg PO DAILY@0800 04/06/21 04/06/21 bisacodyL [Dulcolax] 10 mg RECTAL DAILY PRN 04/06/21 04/06/21 guaiFENesin [Mucinex] 600 mg PO Q12H 04/06/21 04/06/21 Previous Rx's Medication Instructions Recorded Ipratropium-Albuterol Nebulize 3 ml INHALATION RT-QID ml 03/28/21 [Duoneb 0.5 mg-3 mg/3 ml Soln] Allergies Allergy/AdvReac Type Severity Reaction Status Date / Time No Known Allergies Allergy Verified 04/06/21 19:17 Review of Systems ROS Statement: Those systems with pertinent positive or pertinent negative responses have been documented in the HPI. ROS Other: All systems not noted in ROS Statement are negative. Past Medical History Past Medical History: Atrial Fibrillation, Coronary Artery Disease (CAD), Cancer, CVA/TIA, Dementia, Hyperlipidemia, Hypertension, Neurologic Disorder, Osteoarthritis (OA), Prostate Disorder, Thyroid Disorder Additional Past Medical History / Comment(s): CAD , hypertension, A. fib, BPH, hyperlipidemia, vascular dementia, colon cancer, vitamin D deficiency, osteoarthritis. SKIN CANCER, COLON CANCER RECTAL BLEEDING , left lung CA mets to liver. History of Any Multi-Drug Resistant Organisms: None Reported Past Surgical History: Adenoidectomy, Bowel Resection, Hernia Repair, Tonsillectomy Additional Past Surgical History / Comment(s): COLONOSCOPY , BILATERAL CATARACT SURGERY Past Anesthesia/Blood Transfusion Reactions: No Reported Reaction Past Psychological History: Anxiety Smoking Status: Former smoker Past Alcohol Use History: None Reported Past Drug Use History: None Reported - Past Family History Father Family Medical History: Cancer, Myocardial Infarction ([place]) Additional Family Medical History / Comment(s): father in 60's Mother Family Medical History: No Reported History Brother(s) Family Medical History: Cancer Sister(s) Family Medical History: Cancer Daughter(s) Family Medical History: No Reported History Son(s) Family Medical History: No Reported History Course Vital Signs 04/06/21 04/06/21 04/06/21 16:31 17:28 17:57 Temperature 98.0 F Pulse Rate 112 H 90 Respiratory 27 H 24 19 Rate Blood Pressure 83/40 101/60 O2 Sat by Pulse 95 95 Oximetry Medical Decision Making - Lab Data Result diagrams: 04/06/21 17:11 04/06/21 17:11 Lab Results 04/06/21 04/06/21 04/06/21 Range/Units 17:11 17:11 17:11 WBC 5.6 (3.8-10.6) k/uL RBC 3.68 L (4.30-5.90) m/uL Hgb 12.0 L (13.0-17.5) gm/dL Hct 37.8 L (39.0-53.0) % MCV 102.8 H (80.0-100.0) fL MCH 32.5 (25.0-35.0) pg MCHC 31.7 (31.0-37.0) g/dL RDW 16.9 H (11.5-15.5) % Plt Count 211 (150-450) k/uL MPV 10.1 Neutrophils % 84 % Lymphocytes % 6 % Monocytes % 6 % Eosinophils % 0 % Basophils % 0 % Neutrophils # 4.7 (1.3-7.7) k/uL Lymphocytes # 0.4 L (1.0-4.8) k/uL Monocytes # 0.3 (0-1.0) k/uL Eosinophils # 0.0 (0-0.7) k/uL Basophils # 0.0 (0-0.2) k/uL Anisocytosis Slight Macrocytosis Moderate PT (9.0-12.0) sec INR (<1.2) APTT (22.0-30.0) sec Sodium 136 L (137-145) mmol/L Potassium 6.3 H* (3.5-5.1) mmol/L Chloride 109 H (98-107) mmol/L Carbon Dioxide 15 L (22-30) mmol/L Anion Gap 12 mmol/L BUN 125 H* (9-20) mg/dL Creatinine 3.04 H (0.66-1.25) mg/dL Est GFR (CKD-EPI)AfAm 21 (>60 ml/min/1.73 sqM) Est GFR (CKD-EPI)NonAf 18 (>60 ml/min/1.73 sqM) Glucose 125 H (74-99) mg/dL Plasma Lactic Acid Warren 5.9 H* (0.7-2.0) mmol/L Calcium 9.5 (8.4-10.2) mg/dL Ionized Calcium Kevin 5.7 H (4.5-5.3) mg/dL Magnesium 3.1 H (1.6-2.3) mg/dL Coronavirus (PCR) (Not Detectd) 04/06/21 04/06/21 Range/Units 17:11 18:20 WBC (3.8-10.6) k/uL RBC (4.30-5.90) m/uL Hgb (13.0-17.5) gm/dL Hct (39.0-53.0) % MCV (80.0-100.0) fL MCH (25.0-35.0) pg MCHC (31.0-37.0) g/dL RDW (11.5-15.5) % Plt Count (150-450) k/uL MPV Neutrophils % % Lymphocytes % % Monocytes % % Eosinophils % % Basophils % % Neutrophils # (1.3-7.7) k/uL Lymphocytes # (1.0-4.8) k/uL Monocytes # (0-1.0) k/uL Eosinophils # (0-0.7) k/uL Basophils # (0-0.2) k/uL Anisocytosis Macrocytosis PT 50.9 H (9.0-12.0) sec INR 5.3 H* (<1.2) APTT 39.7 H (22.0-30.0) sec Sodium (137-145) mmol/L Potassium (3.5-5.1) mmol/L Chloride (98-107) mmol/L Carbon Dioxide (22-30) mmol/L Anion Gap mmol/L BUN (9-20) mg/dL Creatinine (0.66-1.25) mg/dL Est GFR (CKD-EPI)AfAm (>60 ml/min/1.73 sqM) Est GFR (CKD-EPI)NonAf (>60 ml/min/1.73 sqM) Glucose (74-99) mg/dL Plasma Lactic Acid Warren (0.7-2.0) mmol/L Calcium (8.4-10.2) mg/dL Ionized Calcium Kevin (4.5-5.3) mg/dL Magnesium (1.6-2.3) mg/dL Coronavirus (PCR) Not Detected (Not Detectd) Critical Care Time Critical Care Time: Yes Total Critical Care Time: 33 Disposition Clinical Impression: Respiratory failure Disposition: ADMITTED IP TO THIS [facility] Condition: Critical Referrals: Duc Keller MD [Primary Care Provider] - 1-2 days
[2021-04-06 17:29] LABS: Ionized Calcium 5.7 mg/dL (4.5-5.3)
--- NOTE | 2021-04-06 17:30 | XR ---
EXAMINATION TYPE: XR chest 1V portable DATE OF EXAM: 04/06/2021 COMPARISON: Chest radiograph 03/26/2021 HISTORY: Dyspnea TECHNIQUE: Single frontal view of the chest is obtained. FINDINGS: Patchy bilateral opacities, increased from prior. Blunting of the bilateral costophrenic angles. Cardiomediastinal silhouette and pulmonary vasculature are within normal limits. IMPRESSION: Worsening patchy opacities bilaterally. Small bilateral effusions.
[2021-04-06 17:39] LABS: Calcium 9.5 mg/dL (8.4-10.2); Magnesium 3.1 mg/dL (1.6-2.3)
[2021-04-06 17:49] LABS: Partial Thromboplastin Time 39.7 sec (22.0-30.0); Prothrombin Time 50.9 sec (9.0-12.0)
[2021-04-06 18:03] LABS: Anisocytosis Slight; Basophils % (A) 0 %; Eosinophils % (A) 0 %; HCT 37.8 % (39.0-53.0); Lymphocytes # (A) 0.4 k/uL (1.0-4.8); Lymphocytes % (A) 6 %; MCH 32.5 pg (25.0-35.0); MCHC 31.7 g/dL (31.0-37.0); MCV 102.8 fL (80.0-100.0); Macrocytosis Moderate; Mean Platelet Volume 10.1; Monocytes # (A) 0.3 k/uL (0-1.0); Monocytes % (A) 6 %; Neutrophils # (A) 4.7 k/uL (1.3-7.7); Neutrophils % (A) 84 %; Platelet Count 211 k/uL (150-450); Potassium 6.3 mmol/L (3.5-5.1); RBC 3.68 m/uL (4.30-5.90); RDW 16.9 % (11.5-15.5); WBC 5.6 k/uL (3.8-10.6)
[2021-04-06] MEDS ORDERED: SODIUM CHLORIDE 0.9% 1,000 ML IV STA (18:04)
[2021-04-06 18:21] LABS: INR 5.3 (<1.2)
--- NOTE | 2021-04-06 19:34 | CT ---
EXAMINATION TYPE: CT chest wo con DATE OF EXAM: 04/06/2021 COMPARISON: 03/13/2021 HISTORY: Infiltrates. History of colon, lung and skin cancer. CT DLP: 229.9 mGycm Automated exposure control for dose reduction was used. Images obtained from the thoracic inlet to the diaphragm without contrast. There are multiple masslike infiltrates in the lower lung lennon bilaterally. There is atelectasis an d airspace infiltrate right lower lobe. There is small right pleural effusion. There are calcified gr anuloma calcified pleural plaque in the right lower lobe. Heart size is top normal. There is densely calcified pleural plaque at the left cardiac border. Pulmonary masses measure up to 5 cm. There is so me cavitation. There is no mediastinal adenopathy. Thoracic aorta is atheromatous. There are no hilar masses. There is noncalcified 1 cm nodule in the right upper lobe. Images through the upper abdomen show multiple variable-sized hypodense foci throughout the liver. Sternum is intact. Thoracic spine is intact. There is no compression fracture. IMPRESSION: Right lower lobe infiltrate and atelectasis. Masslike infiltrate with cavitation in the left lower lo be. Right pulmonary nodule. Pulmonary abnormalities slightly increased compared to old CT scan. Calci fied pleural plaque. There is new small right upper lobe nodule. Thoracic abnormalities consistent wi th metastatic disease. Diffuse hepatic metastatic disease which has progressed compared to old exam.
[2021-04-06] MEDS ORDERED: cefTRIAXone IN SWFI 1,000 MG/10 ML SYRINGE IVP STA (19:43)
[2021-04-06] MEDS ORDERED: AZITHROMYCIN 500 MG in SODIUM CHLORIDE 0.9% 250 ML IVPB STA (19:43)
[2021-04-06] MEDS ORDERED: ONDANSETRON 4 MG/2 ML VIAL IVP PRN (19:44)
[2021-04-06] MEDS ORDERED: NALOXONE 0.4 MG/ML 1 ML VIAL IV PRN (19:44)
[2021-04-06] MEDS ORDERED: ACETAMINOPHEN TAB 325 MG TAB PO PRN (19:44)
[2021-04-06] MEDS: SODIUM CHLORIDE 0.9% 1,000 ML IV SCH (21:44)
[2021-04-07] MEDS: SODIUM CHLORIDE 0.9% 1,000 ML IV SCH ×3 (05:41→13:59)
[2021-04-07 08:30] LABS: Anisocytosis Slight; HCT 36.8 % (39.0-53.0); HGB 11.2 gm/dL (13.0-17.5); Hypochromasia Marked; MCH 32.4 pg (25.0-35.0); MCHC 30.3 g/dL (31.0-37.0); MCV 106.7 fL (80.0-100.0); Macrocytosis Marked; Mean Platelet Volume 10.7; Platelet Count 142 k/uL (150-450); RBC 3.44 m/uL (4.30-5.90); RDW 16.8 % (11.5-15.5); WBC 4.5 k/uL (3.8-10.6)
[2021-04-07 09:02] LABS: Potassium 6.1 mmol/L (3.5-5.1)
[2021-04-07 10:47] VITALS: TEMP 98.2
[2021-04-07] MEDS ORDERED: SODIUM POLYSTYRENE SULFONATE 15 GM/60 ML BOTTLE PO STA (12:18)
[2021-04-07] MEDS ORDERED: IPRATROPIUM-ALBUTEROL 3 ML NEB INHALATION PRN (12:25)
[2021-04-07] MEDS ORDERED: BUDESONIDE 1 MG/2 ML NEBU INHALATION SCH (12:27)
[2021-04-07] MEDS ORDERED: SODIUM POLYSTYRENE SULFONATE 30 GM/120 ML BOTTLE RECTAL STA (12:54)
[2021-04-07 13:13] VITALS: BP 112/52
--- NOTE | 2021-04-07 13:26 | P.CNPUL ---
History of Present Illness Consult date: 04/07/21 Requesting physician: Duc Keller Reason for consult: dyspnea, abnormal CXR/CT Chief complaint: Dyspnea, confusion History of present illness: 85-year-old white male patient, poor historian, a resident of a local care home [facility], past medical history of CVA/TIA, dementia, hypertension, hyperlipidemia, chronic atrial fibrillation, coronary artery disease, BPH, history of colon cancer, anxiety, former smoker, came into the emergency department by EMS on 04/06/2021 for evaluation of shortness of breath. Patient had a recent hospitalization at this hospital from 03/24/2021 through 03/28/2021 for treatment of acute bilateral pneumonia. Patient is on Coumadin for his history of A. fib, and apparently she was having worsening generalized weakness and falls and had supratherapeutic INR during that admission. Patient had a recently discovered cavitary left upper lobe mass with satellite nodules as well as metastatic disease to the liver suspicious for malignancy and this was apparently discussed with the patient and family during one of his previous ER visits. This was reported on the CT of the chest, abdomen and pelvis dated 03/13/2021, which was completed for evaluation of right-sided chest pain following his fall. Brain CT from 03/13/2021 showed age-related atrophic and chronic small vessel ischemic changes without acute intracranial process. CODE STATUS is DO NOT RESUSCITATE. Patient's anticoagulation was switched to Eliquis, patient was sent to the care home to complete oral course of Omnicef. At the [facility] according to the ER records patient's breathing became worse, he was given 80 mg of Lasix he was placed on BiPAP support and sent to the emergency department for further evaluation and treatment. Chest x-ray in emergency department showed worsening patchy opacities bilaterally with small bilateral pleural effusions. CT chest without contrast showed right lower lobe infiltrate and atelectasis, masslike infiltrate with cavitation in the left lower lobe, right pulmonary nodule, and pulmonary abnormalities increased compared to old CT scanning of the chest, calcified pleural plaque, and a small right upper lobe nodule that was new, thoracic abnormalities consistent with metastatic disease, and diffuse hepatic metastatic disease which has progressed compared to old exam from 03/13/2021. Admission blood work showed white blood cell count of 5.6, hemoglobin of 12, INR was 5.3, sodium is 136, potassium is 6.3, chloride was 109, CO2 is 15, anion gap was 12, BUN was 125, creatinine is 3.04, plasma lactic acid was 5.9, and peaked at 6.7, COVID-19 was negative. Patient was started on empiric antibiotics in the form of azithromycin and Rocephin, breathing treatments, he was given fluid hydration in the form of 1 L bolus of 0.9 normal saline and currently his IV fluids are infusing at a rate of 130 ML per hour. He remains on BiPAP support with pressures of 12 and 6 and FiO2 is currently at 40%, he is very confused. He keeps pulling his mask off. Review of Systems All systems: negative Constitutional: Reports weakness, Denies chills, Denies fever Eyes: denies blurred vision, denies pain Ears, nose, mouth and throat: Denies headache, Denies sore throat Cardiovascular: Denies chest pain, Denies shortness of breath Respiratory: Reports dyspnea, Denies cough Gastrointestinal: Denies abdominal pain, Denies diarrhea, Denies nausea, Denies vomiting Musculoskeletal: Reports frequent falls, Denies myalgias Integumentary: Denies pruritus, Denies rash Neurological: Reports change in mentation, Denies numbness, Denies weakness Psychiatric: Denies anxiety, Denies depression Endocrine: Denies fatigue, Denies weight change Past Medical History Past Medical History: Atrial Fibrillation, Coronary Artery Disease (CAD), Cancer, CVA/TIA, Dementia, Hyperlipidemia, Hypertension, Neurologic Disorder, Osteoarthritis (OA), Prostate Disorder, Thyroid Disorder Additional Past Medical History / Comment(s): CAD , hypertension, A. fib, BPH, hyperlipidemia, vascular dementia, colon cancer, vitamin D deficiency, osteoarthritis. SKIN CANCER, COLON CANCER RECTAL BLEEDING , left lung CA mets to liver. History of Any Multi-Drug Resistant Organisms: None Reported Past Surgical History: Adenoidectomy, Bowel Resection, Hernia Repair, Tonsillectomy Additional Past Surgical History / Comment(s): COLONOSCOPY , BILATERAL CATARACT SURGERY Past Anesthesia/Blood Transfusion Reactions: No Reported Reaction Past Psychological History: Anxiety Smoking Status: Former smoker Past Alcohol Use History: None Reported Past Drug Use History: None Reported - Past Family History Father Family Medical History: Cancer, Myocardial Infarction ([place]) Additional Family Medical History / Comment(s): father in 60's Mother Family Medical History: No Reported History Brother(s) Family Medical History: Cancer Sister(s) Family Medical History: Cancer Daughter(s) Family Medical History: No Reported History Son(s) Family Medical History: No Reported History Medications and Allergies Home Medications Medication Instructions Recorded Confirmed Type Ferocon Cap 1 cap PO DAILY@0800 07/13/16 04/06/21 History Levothyroxine Sodium [Synthroid] 50 mcg PO DAILY@0600 06/28/17 04/06/21 History Folic Acid 1 mg PO DAILY@1700 07/28/19 04/06/21 History Amiodarone HCl [Pacerone] 100 mg PO DAILY@0800 08/17/20 04/06/21 History Loratadine 10 mg PO DAILY@0800 08/17/20 04/06/21 History Memantine [Namenda] 5 mg PO BID@0800,1700 08/17/20 04/06/21 History Ipratropium-Albuterol Nebulize 3 ml INHALATION RT-QID ml 03/28/21 04/06/21 Rx [Duoneb 0.5 mg-3 mg/3 ml Soln] ALPRAZolam [Xanax] 0.25 mg PO Q8H PRN 04/06/21 04/06/21 History Apixaban [Eliquis] 2.5 mg PO BID@0800,1700 04/06/21 04/06/21 History Budesonide/Formoterol Fumarate 2 puff INHALATION RT-BID@0800,1700 04/06/21 04/06/21 History [Symbicort 80-4.5 Mcg Inhaler] Ensure Enlive 120 ml PO TID@0800,1200,1700 04/06/21 04/06/21 History Furosemide [Lasix] 40 mg PO ONCE 04/06/21 04/06/21 History Ipratropium-Albuterol Nebulize 3 ml INHALATION RT-QID PRN 04/06/21 04/06/21 History [Duoneb 0.5 mg-3 mg/3 ml Soln] Magnesium Hydroxide [Milk of 7,200 mg PO Q48H PRN 04/06/21 04/06/21 History Magnesia Concentrate] Metoprolol Tartrate [Lopressor] 25 mg PO DAILY@0800 04/06/21 04/06/21 History Na Phos,M-B/Na Phos,Di-Ba [Fleet 133 ml RECTAL DAILY PRN 04/06/21 04/06/21 History Adult] Pantoprazole [Protonix] 40 mg PO DAILY@0600 04/06/21 04/06/21 History Tamsulosin [Flomax] 0.4 mg PO DAILY@0800 04/06/21 04/06/21 History bisacodyL [Dulcolax] 10 mg RECTAL DAILY PRN 04/06/21 04/06/21 History guaiFENesin [Mucinex] 600 mg PO Q12H 04/06/21 04/06/21 History Allergies Allergy/AdvReac Type Severity Reaction Status Date / Time No Known Allergies Allergy Verified 04/06/21 19:17 Physical Exam Vitals: Vital Signs Temp Pulse Resp BP Pulse Ox 04/07/21 10:00 98.2 F 107 H 113/47 100 04/07/21 09:00 86 97/45 04/07/21 08:00 89 109/45 100 04/07/21 06:40 86 18 123/50 98 04/07/21 05:41 88 22 110/49 100 04/07/21 04:00 89 114/51 04/07/21 03:00 93 22 114/54 100 04/07/21 02:00 85 104/52 100 04/07/21 01:26 85 22 110/57 100 04/07/21 01:00 84 110/47 100 04/07/21 00:00 84 22 105/54 100 04/06/21 23:00 96 102/56 100 04/06/21 22:00 82 22 111/50 100 04/06/21 21:00 85 100 04/06/21 20:00 83 22 101/53 100 04/06/21 19:00 92 104/51 100 04/06/21 18:00 91 101/61 04/06/21 17:57 90 19 101/60 95 04/06/21 17:28 24 04/06/21 17:00 86/48 97 04/06/21 16:41 92 86/48 95 04/06/21 16:31 98.0 F 112 H 27 H 83/40 95 Intake and Output 04/06/21 04/07/21 04/07/21 22:59 06:59 14:59 Other: Weight 73.378 kg GENERAL EXAM: Lethargic but easily arousable, confused, 85-year-old frail- looking white male, resting in a gurney in the emergency department, on BiPAP support with pressures of 12 and 6 and FiO2 of 40%, patient is confused, he is restless at times, he is trying to pull his BiPAP mask off comfortable in no ap parent distress. HEAD: Normocephalic/atraumatic. EYES: Normal reaction of pupils, equal size. Conjunctiva pink, sclera white. NOSE: Clear with pink turbinates. THROAT: No erythema or exudates. NECK: No masses, no JVD, no thyroid enlargement, no adenopathy. CHEST: No chest wall deformity. Symmetrical expansion. LUNGS: Equal air entry with scattered rhonchi CVS: Regular rate and rhythm, normal S1 and S2, no gallops, no murmurs, no rubs ABDOMEN: Soft, nontender. No hepatosplenomegaly, normal bowel sounds, no guarding or rigidity. EXTREMITIES: No clubbing, no edema, no cyanosis, 2+ pulses and upper and lower extremities. MUSCULOSKELETAL: Muscle strength and tone normal. SPINE: No scoliosis or deformity SKIN: No rashes CENTRAL NERVOUS SYSTEM: Confused, lethargic, 85-year-old white male No focal deficits, tone is normal in all 4 extremities. Results - Laboratory Findings CBC and BMP: 04/07/21 05:15 04/07/21 05:15 PT/INR, D-dimer PT 50.9 sec (9.0-12.0) H 04/06/21 17:11 INR 5.3 (<1.2) H* 04/06/21 17:11 Abnormal lab findings: Abnormal Labs 04/06/21 04/06/21 04/06/21 17:11 17:11 17:11 RBC 3.68 L Hgb 12.0 L Hct 37.8 L MCV 102.8 H MCHC RDW 16.9 H Plt Count Lymphocytes # 0.4 L Macrocytosis PT INR APTT Sodium 136 L Potassium 6.3 H* Chloride 109 H Carbon Dioxide 15 L BUN 125 H* Creatinine 3.04 H Glucose 125 H Plasma Lactic Acid Warren 5.9 H* Ionized Calcium Kevin 5.7 H Magnesium 3.1 H 04/06/21 04/06/21 04/07/21 17:11 21:37 01:13 RBC Hgb Hct MCV MCHC RDW Plt Count Lymphocytes # Macrocytosis PT 50.9 H INR 5.3 H* APTT 39.7 H Sodium Potassium Chloride Carbon Dioxide BUN Creatinine Glucose Plasma Lactic Acid Warren 6.7 H* 6.3 H* Ionized Calcium Kevin Magnesium 04/07/21 04/07/21 04/07/21 05:15 05:15 05:15 RBC 3.44 L Hgb 11.2 L Hct 36.8 L MCV 106.7 H MCHC 30.3 L RDW 16.8 H Plt Count 142 L Lymphocytes # Macrocytosis Marked A PT INR APTT Sodium Potassium 6.1 H* Chloride 113 H Carbon Dioxide 15 L BUN 126 H* Creatinine 3.01 H Glucose Plasma Lactic Acid Warren 5.8 H* Ionized Calcium Kevin Magnesium 04/07/21 09:19 RBC Hgb Hct MCV MCHC RDW Plt Count Lymphocytes # Macrocytosis PT INR APTT Sodium Potassium Chloride Carbon Dioxide BUN Creatinine Glucose Plasma Lactic Acid Warren 5.6 H* Ionized Calcium Kevin Magnesium - Diagnostic Findings Chest x-ray: report reviewed, image reviewed CT scan - chest: report reviewed, image reviewed Additional studies: EKG reviewed Assessment and Plan Plan: Assessment: #1. Acute hypoxic respiratory failure related to progressive metastatic lung cancer, with metastasis to the liver. CT chest reveals cavitating mass in the left lower lobe, right lower lobe infiltrate and atelectasis, right upper lobe nodule, and diffuse hepatic metastatic disease. These findings have progressed since 03/13/2021, when it was first discovered on the CT chest abdomen and pelvis. #2. Recent hospitalization for bilateral pneumonia, and was discharged to [facility] on 03/28/2021 on oral course of antibiotics in the form of Omnicef #3. Chronic A. fib currently on Coumadin with supratherapeutic INR on admission of 5.3 #4. Acute kidney injury related to dehydration #5. Hyperkalemia related to CASEY #6. Lactic acidosis possibly related to sepsis and pneumonia #7. Underlying dementia #8. History of falls #9. Altered mental status related to sepsis, severe dehydration. Recent brain CT from 03/13/2021 showed no acute changes and no evidence of metastasis #10. History of coronary artery disease #11. Previous history of myocardial infarction #12. Hypertension #13. Chronic A. fib on Coumadin #14. BPH Plan: CT chest has been reviewed Patient's chart including previous admission has been reviewed There is evidence of metastatic lung cancer on the CT chest with metastasis to the liver Recommend discussing comfort care with patient's family Continue supportive treatment until then Overall prognosis is poor and guarded We'll continue to follow I performed a history & physical examination of the patient and discussed their management with my nurse practitioner, Jessica Lackey. I reviewed the nurse practitioner's note and agree with the documented findings and plan of care. Lung sounds are positive for diminished breath sounds throughout the lung lennon. The findings and the impression was discussed with the patient. I attest to the documentation by the nurse practitioner. Time with Patient: Greater than 30
[2021-04-07] MEDS ORDERED: PANTOPRAZOLE 40 MG/10 ML VIAL IVP SCH (13:30)
--- NOTE | 2021-04-07 13:41 | P.HPIM ---
History of Present Illness H&P Date: 04/07/21 Chief Complaint: Worsening shortness of breath This is an 85-year-old gentleman recently admitted with acute bilateral community-acquired pneumonia and discharged to [facility] subacute rehab with past medical history of recently (03/13/21) discovered cavitary left upper lobe mass with satellite nodules, as well as metastatic disease to the liver suspicious of malignancy, coronary artery disease, status post myocardial infarction about 20 years ago, hypertension and hypertensive perivascular disease, atrial fibrillation, BPH, hyperlipidemia, vascular dementia, vitamin D deficiency, presented to the ER with ongoing worsening dyspnea, after receiving Lasix at [facility]. On admission, afebrile, WBC within normal limits, tachycardic with heart rate of 112, tachypneic, street 27 maintaining O2 sat of 95 on BiPAP, systolic blood pressure 83/40, EMS records currently unavailable . Hemoglobin 12, platelet 16.9, INR 5.3 , sodium 136, bicarb 15 potassium 6.3, decreased to 6.1, repeat stat labs pending, BUN 126, creatinine 3.01, lactic acid 6.7 on admission, maintained on IV fluid hydration, decrease to 5.6, magnesium 3. garcía virus not detected. Chest x-ray reported worsening bilateral patchy opacities, small bilateral effusions, CT reported right lower lobe infiltrate a nd atelectasis, masslike infiltrate with cavitation in the left lower lobe, right pulmonary nodule, pulmonary abnormalities increased compared to prior computed tomography scan, calcified pleural plaque new small right upper lobe nodule thoracic abnormalities consistent with metastatic disease, diffuse hepatic metastatic disease progressed compared to prior exam. EKG sinus tachycardia, anterior lateral abnormalities-appear unchanged from prior, per ER DrJemreview. Denies chest pain, palpitations. Review of Systems ROS Statement: Those systems with pertinent positive or pertinent negative responses have been documented in the HPI. ROS Other: All systems not noted in ROS Statement are negative. Past Medical History Past Medical History: Atrial Fibrillation, Coronary Artery Disease (CAD), Cancer, CVA/TIA, Dementia, Hyperlipidemia, Hypertension, Neurologic Disorder, Osteoarthritis (OA), Prostate Disorder, Thyroid Disorder Additional Past Medical History / Comment(s): CAD , hypertension, A. fib, BPH, hyperlipidemia, vascular dementia, colon cancer, vitamin D deficiency, ost eoarthritis. SKIN CANCER, COLON CANCER RECTAL BLEEDING , left lung CA mets to liver. History of Any Multi-Drug Resistant Organisms: None Reported Past Surgical History: Adenoidectomy, Bowel Resection, Hernia Repair, Tonsillectomy Additional Past Surgical History / Comment(s): COLONOSCOPY , BILATERAL CATARACT SURGERY Past Anesthesia/Blood Transfusion Reactions: No Reported Reaction Past Psychological History: Anxiety Smoking Status: Former smoker Past Alcohol Use History: None Reported Past Drug Use History: None Reported - Past Family History Father Family Medical History: Cancer, Myocardial Infarction ([place]) Additional Family Medical History / Comment(s): father in 60's Mother Family Medical History: No Reported History Brother(s) Family Medical History: Cancer Sister(s) Family Medical History: Cancer Daughter(s) Family Medical History: No Reported History Son(s) Family Medical History: No Reported History Medications and Allergies Home Medications Medication Instructions Recorded Confirmed Type Ferocon Cap 1 cap PO DAILY@0800 07/13/16 04/06/21 History Levothyroxine Sodium [Synthroid] 50 mcg PO DAILY@0600 06/28/17 04/06/21 History Folic Acid 1 mg PO DAILY@1700 07/28/19 04/06/21 History Amiodarone HCl [Pacerone] 100 mg PO DAILY@0800 08/17/20 04/06/21 History Loratadine 10 mg PO DAILY@0800 08/17/20 04/06/21 History Memantine [Namenda] 5 mg PO BID@0800,1700 08/17/20 04/06/21 History Ipratropium-Albuterol Nebulize 3 ml INHALATION RT-QID ml 03/28/21 04/06/21 Rx [Duoneb 0.5 mg-3 mg/3 ml Soln] ALPRAZolam [Xanax] 0.25 mg PO Q8H PRN 04/06/21 04/06/21 History Apixaban [Eliquis] 2.5 mg PO BID@0800,1700 04/06/21 04/06/21 History Budesonide/Formoterol Fumarate 2 puff INHALATION RT-BID@0800,1700 04/06/21 04/06/21 History [Symbicort 80-4.5 Mcg Inhaler] Ensure Enlive 120 ml PO TID@0800,1200,1700 04/06/21 04/06/21 History Furosemide [Lasix] 40 mg PO ONCE 04/06/21 04/06/21 History Ipratropium-Albuterol Nebulize 3 ml INHALATION RT-QID PRN 04/06/21 04/06/21 History [Duoneb 0.5 mg-3 mg/3 ml Soln] Magnesium Hydroxide [Milk of 7,200 mg PO Q48H PRN 04/06/21 04/06/21 History Magnesia Concentrate] Metoprolol Tartrate [Lopressor] 25 mg PO DAILY@0800 04/06/21 04/06/21 History Na Phos,M-B/Na Phos,Di-Ba [Fleet 133 ml RECTAL DAILY PRN 04/06/21 04/06/21 H istory Adult] Pantoprazole [Protonix] 40 mg PO DAILY@0600 04/06/21 04/06/21 History Tamsulosin [Flomax] 0.4 mg PO DAILY@0800 04/06/21 04/06/21 History bisacodyL [Dulcolax] 10 mg RECTAL DAILY PRN 04/06/21 04/06/21 History guaiFENesin [Mucinex] 600 mg PO Q12H 04/06/21 04/06/21 History Allergies Allergy/AdvReac Type Severity Reaction Status Date / Time No Known Allergies Allergy Verified 04/06/21 19:17 Physical Exam Vitals: Vital Signs Temp Pulse Resp BP Pulse Ox 04/07/21 10:00 98.2 F 107 H 113/47 100 04/07/21 09:00 86 97/45 04/07/21 08:00 89 109/45 100 04/07/21 06:40 86 18 123/50 98 04/07/21 05:41 88 22 110/49 100 04/07/21 04:00 89 114/51 04/07/21 03:00 93 22 114/54 100 04/07/21 02:00 85 104/52 100 04/07/21 01:26 85 22 110/57 100 04/07/21 01:00 84 110/47 100 04/07/21 00:00 84 22 105/54 100 04/06/21 23:00 96 102/56 100 04/06/21 22:00 82 22 111/50 100 04/06/21 21:00 85 100 04/06/21 20:00 83 22 101/53 100 04/06/21 19:00 92 104/51 100 04/06/21 18:00 91 101/61 04/06/21 17:57 90 19 101/60 95 04/06/21 17:28 24 04/06/21 17:00 86/48 97 04/06/21 16:41 92 86/48 95 04/06/21 16:31 98.0 F 112 H 27 H 83/40 95 Intake and Output 04/06/21 04/07/21 04/07/21 22:59 06:59 14:59 Other: Weight 73.378 kg GENERAL: Pt. awake and alert, cachectic ,restless,NAD. Weak cough. HEAD: normocephalic. EYES: Pupils equal and round. Sclera anicteric, conjunctiva are normal. ENT: Dry mucous membranes. NECK:Supple, no JVD. LUNGS: bilateral air entry, scattered rhonchi HEART: Heart S1, S2, no S3 or S4. Regular rate and rhythm. Systolic murmur. ABDOMEN: Soft, nontender, nondistended, normoactive bowel sounds. No guarding, no rebound. No masses or organomegaly appreciated. EXTREMITIES: 2+ peripheral pulses. No edema. No calf tenderness. NEUROLOGICAL: Pt oriented x 3. Cranial nerves II through XII grossly intact. Strength and sensation grossly intact. PSYCH: Normal mood, normal affect. SKIN: Warm, dry, intact. Results CBC & Chem 7: 04/07/21 05:15 04/07/21 05:15 Labs: Abnormal Lab Results - Last 24 Hours (Table) 04/06/21 04/06/21 04/06/21 Range/Units 17:11 17:11 17:11 RBC 3.68 L (4.30-5.90) m/uL Hgb 12.0 L (13.0-17.5) gm/dL Hct 37.8 L (39.0-53.0) % MCV 102.8 H (80.0-100.0) fL MCHC (31.0-37.0) g/dL RDW 16.9 H (11.5-15.5) % Plt Count (150-450) k/uL Lymphocytes # 0.4 L (1.0-4.8) k/uL Macrocytosis PT (9.0-12.0) sec INR (<1.2) APTT (22.0-30.0) sec Sodium 136 L (137-145) mmol/L Potassium 6.3 H* (3.5-5.1) mmol/L Chloride 109 H (98-107) mmol/L Carbon Dioxide 15 L (22-30) mmol/L BUN 125 H* (9-20) mg/dL Creatinine 3.04 H (0.66-1.25) mg/dL Glucose 125 H (74-99) mg/dL Plasma Lactic Acid Warren 5.9 H* (0.7-2.0) mmol/L Ionized Calcium Kevin 5.7 H (4.5-5.3) mg/dL Magnesium 3.1 H (1.6-2.3) mg/dL 04/06/21 04/06/21 04/07/21 Range/Units 17:11 21:37 01:13 RBC (4.30-5.90) m/uL Hgb (13.0-17.5) gm/dL Hct (39.0-53.0) % MCV (80.0-100.0) fL MCHC (31.0-37.0) g/dL RDW (11.5-15.5) % Plt Count (150-450) k/uL Lymphocytes # (1.0-4.8) k/uL Macrocytosis PT 50.9 H (9.0-12.0) sec INR 5.3 H* (<1.2) APTT 39.7 H (22.0-30.0) sec Sodium (137-145) mmol/L Potassium (3.5-5.1) mmol/L Chloride (98-107) mmol/L Carbon Dioxide (22-30) mmol/L BUN (9-20) mg/dL Creatinine (0.66-1.25) mg/dL Glucose (74-99) mg/dL Plasma Lactic Acid Warren 6.7 H* 6.3 H* (0.7-2.0) mmol/L Ionized Calcium Kevin (4.5-5.3) mg/dL Magnesium (1.6-2.3) mg/dL 04/07/21 04/07/21 04/07/21 Range/Units 05:15 05:15 05:15 RBC 3.44 L (4.30-5.90) m/uL Hgb 11.2 L (13.0-17.5) gm/dL Hct 36.8 L (39.0-53.0) % MCV 106.7 H (80.0-100.0) fL MCHC 30.3 L (31.0-37.0) g/dL RDW 16.8 H (11.5-15.5) % Plt Count 142 L (150-450) k/uL Lymphocytes # (1.0-4.8) k/uL Macrocytosis Marked A PT (9.0-12.0) sec INR (<1.2) APTT (22.0-30.0) sec Sodium (137-145) mmol/L Potassium 6.1 H* (3.5-5.1) mmol/L Chloride 113 H (98-107) mmol/L Carbon Dioxide 15 L (22-30) mmol/L BUN 126 H* (9-20) mg/dL Creatinine 3.01 H (0.66-1.25) mg/dL Glucose (74-99) mg/dL Plasma Lactic Acid Warren 5.8 H* (0.7-2.0) mmol/L Ionized Calcium Kevin (4.5-5.3) mg/dL Magnesium (1.6-2.3) mg/dL 04/07/21 Range/Units 09:19 RBC (4.30-5.90) m/uL Hgb (13.0-17.5) gm/dL Hct (39.0-53.0) % MCV (80.0-100.0) fL MCHC (31.0-37.0) g/dL RDW (11.5-15.5) % Plt Count (150-450) k/uL Lymphocytes # (1.0-4.8) k/uL Macrocytosis PT (9.0-12.0) sec INR (<1.2) APTT (22.0-30.0) sec Sodium (137-145) mmol/L Potassium (3.5-5.1) mmol/L Chloride (98-107) mmol/L Carbon Dioxide (22-30) mmol/L BUN (9-20) mg/dL Creatinine (0.66-1.25) mg/dL Glucose (74-99) mg/dL Plasma Lactic Acid Warren 5.6 H* (0.7-2.0) mmol/L Ionized Calcium Kevin (4.5-5.3) mg/dL Magnesium (1.6-2.3) mg/dL Assessment and Plan Assessment: Acute hypoxic respiratory failure in a patient, recently hospitalized with acute bilateral pneumonia, community-acquired, related to progressive metastatic lung cancer recently identified (03/13/21) ;masslike infiltrate with cavitation in the left lower lobe, right pulmonary nodule, increased pulmonary abnormalities compared to prior computed tomography scan, new small right upper lobe nodule, thoracic abnormalities consistent with metastatic disease, progression of diffuse hepatic metastatic disease compared to prior CT. hypercoagulopathy History of transaminitis History of Falls lactic acidosis Acute renal failure secondary to poor oral intake, dehydration Hyperkalemia secondary to acute renal failure Dehydration history of sicksinus syndrome,tachybradycardia syndrome with chronic paroxysmal atrial fibrillation hypertension Hyperlipidemia CAD, history of NE history of CVA BPH Vascular dementia Vitamin D deficiency osteoarthritis Tourette syndrome with tics stable. former smoker Plan: Continue on current medication regime ,monitoring and symptomatic treatment. Maintain IV antibiotics. Nebulized bronchodilators, Pulmicort ordered. Discuss worsened findings on CT with Vijaya. Daughter Vijaya at bedside states during visitation at [facility], patient did not have water at the bedside evgeny ilable, poor diet intake. IV fluid hydration. Rectal Kayexalate ordered, stat labs ordered. Palliative care consulted. In regards to worsening CT, prognosis poor, recommending comfort care with hospice, PCP Dr. Bahena will discuss with via phone. Case management updated. Further recommendations to follow. The impression and plan of care has been dictated as directed. : I performed a history and examination of this patient, discussed the same with the dictator. I agree with the dictator's note ,documented as a scribe. Any additional findings or plans will be noted.
[2021-04-07 13:51] LABS: Calcium 8.5 mg/dL (8.4-10.2); Potassium 5.9 mmol/L (3.5-5.1)
[2021-04-07 13:58] VITALS: PULSE 112
[2021-04-07] MEDS ORDERED: IPRATROPIUM-ALBUTEROL 3 ML NEB INHALATION SCH (16:00)
[2021-04-07 16:18] VITALS: RESP 17
[2021-04-08] MEDS ORDERED: AMIODARONE 100 MG TAB PO SCH (08:00)
== END 2021-04-07 15:43 | disposition hospice, inpatient (51) | DRG 871 ==
LOC: EC 16:28 → 3SCARD 19:48 → 5NMEDONC 04-07 15:35
PROVIDERS: ADMIT Family Medicine; ATTEND Family Medicine
DX: A41.9 Sepsis, unspecified organism (principal); J96.01 Acute respiratory failure with hypoxia; C78.7 Secondary malignant neoplasm of liver and intrahepatic bile duct; E87.2 Acidosis; I48.20 Chronic atrial fibrillation, unspecified; J98.11 Atelectasis; N17.9 Acute kidney failure, unspecified; R64 Cachexia; C34.32 Malignant neoplasm of lower lobe, left bronchus or lung; C78.01 Secondary malignant neoplasm of right lung; Z20.822 Contact with and (suspected) exposure to COVID-19; Z66 Do not resuscitate; E55.9 Vitamin D deficiency, unspecified; E78.5 Hyperlipidemia, unspecified; E86.0 Dehydration; E87.5 Hyperkalemia; F01.50 Vascular dementia, unspecified severity, without behavioral disturbance, psychotic disturbance, mood disturbance, and anxiety; F41.9 Anxiety disorder, unspecified; F95.2 Tourette's disorder; I11.0 Hypertensive heart disease with heart failure; I25.10 Atherosclerotic heart disease of native coronary artery without angina pectoris; I25.2 Old myocardial infarction; I48.0 Paroxysmal atrial fibrillation; R65.20 Severe sepsis without septic shock; R79.1 Abnormal coagulation profile; I50.9 Heart failure, unspecified; I49.5 Sick sinus syndrome; N40.0 Benign prostatic hyperplasia without lower urinary tract symptoms; M19.90 Unspecified osteoarthritis, unspecified site; G31.89 Other specified degenerative diseases of nervous system; R29.6 Repeated falls; Z79.01 Long term (current) use of anticoagulants; Z79.51 Long term (current) use of inhaled steroids; Z79.890 Hormone replacement therapy; Z79.899 Other long term (current) drug therapy; Z85.048 Personal history of other malignant neoplasm of rectum, rectosigmoid junction, and anus; Z85.828 Personal history of other malignant neoplasm of skin; Z86.73 Personal history of transient ischemic attack (TIA), and cerebral infarction without residual deficits; Z87.891 Personal history of nicotine dependence; Z91.81 History of falling; Z87.19 Personal history of other diseases of the digestive system; Z98.42 Cataract extraction status, left eye; Z98.41 Cataract extraction status, right eye; Z87.01 Personal history of pneumonia (recurrent)
CPT/HCPCS: 36415; 71045; 71250; 80048; 82330; 83605; 83735; 85025; 85027; 85610; 85730; 87040; 87635; 93005; 94660; 96360; 99291

== ENCOUNTER 2021-04-07 14:45 | Inpatient (IN) | payer MEDICAID, MEDICARE ==
[2021-04-07] MEDS ORDERED: ONDANSETRON 4 MG/2 ML VIAL IVP PRN (15:13)
[2021-04-07] MEDS ORDERED: ACETAMINOPHEN SUPPOSITORY 650 MG SUPP RECTAL PRN (15:13)
[2021-04-07] MEDS ORDERED: MORPHINE SULFATE 2 MG/ML SYRINGE IV PRN (15:13)
[2021-04-07] MEDS ORDERED: GLYCOPYRROLATE 0.2 MG/ML 2 ML VIAL IVP PRN (15:13)
[2021-04-07] MEDS ORDERED: ATROPINE OPHTH SOLN 1% 5ML BTL SUBLINGUAL PRN (15:13)
[2021-04-07] MEDS ORDERED: LORazepam 2 MG/ML INJ IV PRN (15:28)
[2021-04-07] MEDS ORDERED: HALOPERIDOL LACTATE 5 MG/ML 1 ML VIAL IM PRN (15:28)
[2021-04-07] MEDS ORDERED: MORPHINE SULFATE (100 MG/2 ML) 100 MG in SODIUM CHLORIDE 0.9% 100 ML IV SCH (16:00)
[2021-04-07] MEDS ORDERED: SCOPOLAMINE 1.5MG/72HR PATCH TRANSDERM SCH (16:00)
[2021-04-07 16:41] VITALS: BP 90/49; PULSE 114; RESP 23; TEMP 98.8
== END 2021-04-08 08:36 | disposition expired | DRG 951 ==
LOC: 5NMEDONC 16:05
PROVIDERS: ADMIT Family Medicine; ATTEND Family Medicine
DX: Z51.5 Encounter for palliative care (principal); J18.9 Pneumonia, unspecified organism; C78.7 Secondary malignant neoplasm of liver and intrahepatic bile duct; C34.12 Malignant neoplasm of upper lobe, left bronchus or lung; J98.11 Atelectasis; D68.59 Other primary thrombophilia; N17.9 Acute kidney failure, unspecified; E87.2 Acidosis; Z66 Do not resuscitate; F95.2 Tourette's disorder; I25.2 Old myocardial infarction; R74.01 Elevation of levels of liver transaminase levels; I10 Essential (primary) hypertension; E87.5 Hyperkalemia; E86.0 Dehydration; I49.5 Sick sinus syndrome; R29.6 Repeated falls; Z91.81 History of falling; I48.91 Unspecified atrial fibrillation; N40.0 Benign prostatic hyperplasia without lower urinary tract symptoms; E78.5 Hyperlipidemia, unspecified; F01.50 Vascular dementia, unspecified severity, without behavioral disturbance, psychotic disturbance, mood disturbance, and anxiety; E55.9 Vitamin D deficiency, unspecified; R00.0 Tachycardia, unspecified; I25.10 Atherosclerotic heart disease of native coronary artery without angina pectoris; M19.90 Unspecified osteoarthritis, unspecified site; Z85.038 Personal history of other malignant neoplasm of large intestine; Z85.828 Personal history of other malignant neoplasm of skin; F41.9 Anxiety disorder, unspecified; Z87.19 Personal history of other diseases of the digestive system; Z86.73 Personal history of transient ischemic attack (TIA), and cerebral infarction without residual deficits; Z87.891 Personal history of nicotine dependence